=== PATIENT | male | born 1965 | race Caucasian/White ===

== ENCOUNTER 2024-09-30 12:23 | Outpatient (REF) | payer MEDICARE, SELFPAY ==
[2024-09-30 13:16] LABS: Blood Urea Nitrogen 37.0 mg/dL (7.0-18.0); Estimated GFR (African America 31 (>=60 mL/min/1.73m^2); Estimated GFR (Non-African Ame 25 (>=60 mL/min/1.73m^2)
== END 2024-09-30 12:24 | disposition home or self-care (01) ==
LOC: LAB 12:23
PROVIDERS: PCP Family Medicine; Visit Provider Family Medicine
DX: A49.02 Methicillin resistant Staphylococcus aureus infection, unspecified site (principal)
CPT/HCPCS: 36415; 80202; 82565; 84520

== ENCOUNTER 2024-10-06 12:10 | Outpatient (REF) | payer MEDICARE, SELFPAY ==
--- OUTSIDE RECORDS SUMMARY | 2023-08-01 09:30 | XMS_ITS ---
Author Organization The [facility] [place] Address [address] [place] [address] Care Team Providers Care Press Offbearer Name Role Phone None, Unknown or Primary Care Provider Unavailab Ed Early Unavailable [phone] REASON FOR VISIT Scheduled w/ [facility] - they were not sure why pt needed to be seen _ _ humana Encounters Encounter Location Date Provider Diagnosis Urology [facility] [address] [place] [address] 08/01/2023 Ed Rashid Plan Of Treatment No Information Progress Notes * Tomas SHERMANDOB:1965 (58 yo M)Acc No.[id number]:08/01/2023 UNLOCKED PROGRESS NOTE Progress Note Patient: Tomas FLYNN Provider: Yfn Rashid MD :1965 A ge:57 Y S ex:Male Date:08/01/2023 Address:[facility] [address], [place], [id number] Pcp:Unknown or None Subjective: * Chief Complaints: * 1 . Scheduled w/ [facility] - they were not sure why pt needed to be seen _ _ humana. * Medical History: Objective: * Vitals: Assessment: Plan: * Treatment: * * Electronic signature of Gil Rashid MD, [id number] on 10/06/2024 at 12:16 PM EDT Sign off status: Pending Visit Status: C ANCSMS (CANCSMS) * Provider: Yfn Rashid MD Date: 0 08/01/2023 Generated for Cathi thomas/Marcela/Sy on: 0 10/06/2024 12:16 PM EDT
--- OUTSIDE RECORDS SUMMARY | 2024-09-04 10:30 | XMS_ITS ---
Author Organization [facility] Address [address] [place] [address] Care Team Providers Care Ski Binding Fitter And Repairer Name Role Phone Sp Arguelles Primary Care Provider Sada Yadav [phone] REASON FOR VISIT BACTEREMIA, OSTEOMYELITIS Encounters Encounter Location Date Provider Diagnosis [facility] [address] [facility] [place] [address] 09/04/2024 Sada Yadav Plan Of Treatment Next Appt Details Provider Name:Gris chávez, 10/13/2024 02:30:00 PM, [address] [place], [address], Progress Notes * SEBASTIAN PIEDRA EDOB: 6 (58 yo M)Acc No.[id number]:09/04/2024 Progress Note Patient: SEBASTIAN FLYNN Provider: WYATT Floernce :1965 A ge:58 Y S ex:Male Date:09/04/2024 Address:[facility] [address], [place], [place] Pcp:Sp Arguelles Subjective: * Chief Complaints: * 1 . BACTEREMIA, OSTEOMYELITIS. * Medical History: Objective: * Vitals: Assessment: Plan: * Treatment: Care Plan: * Problems: * Images: * Electronic signature of Ciera Yadav CNP on 10/06/2024 at 12:15 PM EDT Sign off status: Pending * Provider: WYATT [place] Date: 0 09/04/2024 Generated for Cathi thomas/Marcela/Sy on: 0 10/06/2024 12:15 PM EDT
--- OUTSIDE RECORDS SUMMARY | 2024-09-24 09:30 | XMS_ITS ---
Author Organization [facility] Address [address] [place] [address] Care Team Providers Care Disc Sander Name Role Phone Sp Arguelles Primary Care Provider [phone] REASON FOR VISIT Hosp f/u, BMV forms Encounters Encounter Location Date Provider Diagnosis [facility] [address] [facility] [place] [address] 09/24/2024 Sp Arguellse Plan Of Treatment Next Appt Details Provider Name:Gris chávez, 10/13/2024 02:30:00 PM, [address] [place], [address], Progress Notes * PIEDRA SEBASTIAN EDOB: 6 (58 yo M)Acc No.[id number]:09/24/2024 Progress Note Patient: SEBASTIAN FLYNN Provider: Janki Arguelles :1965 A ge:58 Y S ex:Male Date:09/24/2024 [facility] [address], [place], [place] Subjective: * Chief Complaints: * 1 . Hosp f/u, BMV forms. * Medical History: Objective: * Vitals: Assessment: Plan: * Treatment: Care Plan: * Problems: * Images: * Electronic signature of Irma Arguelles DO on 10/06/2024 at 12:16 PM EDT Sign off status: Pending * Provider: Janki Arguelles Date: 0 09/24/2024 Generated for Cathi thomas/Marcela/Manuelitting on: 0 10/06/2024 12:16 PM EDT
--- OUTSIDE RECORDS SUMMARY | 2024-10-06 12:16 | XMS_ITS | Patient Health Record ---
Author Organization [facility] Address [address] [place] [address] [address] [place] [address] [place] [address] Care Team Providers Care Measurement Coordinator Name Role Phone Family, Health Services Primary Care Provider Un available Leilamookie Shaji Unavailable [phone] Reason For Referral No Information Medications Medication SIG (Take, Route, Frequency, Duration) Notes Start Date End Date Status metFORMIN HCl 1000 MG 2 Orally Once a day Active Losartan Potassium 50 MG 1 tablet Orally Once a day Active LORazepam 1 MG 1 tablet at bedtime as needed Orally prn Active Cyclobenzaprine HCl 10 MG 1 tablet as ne eded Orally prn Active Ritalin 10 MG 1 tablet Orally Twic e a day Active Citalopram Hydrobromide 40 MG 0.5 tablet Orally Once a day Active Bydureon 2 MG Subcutaneous Act snow Insulin Glargine 100 UNIT/ML Subcutaneous Active CeleXA 40 MG 0.5 tablet Orally On ce a day Active Gabapentin 400 MG 1 capsule Orally Thr ee times a day Active Metoprolol Succinate ER 50 MG 1 tablet Orally Once a day Active Pravastatin Sodium 20 MG 1 tablet Orally Once a day Active Omeprazole 40 MG 1 capsule Orally Onc e a day Active Albuterol Sulfate Ac tive Aspirin 325 MG 1 tablet Orally Once a day Active risperiDONE 1 MG 1 tablet Orally Once a day Active Social History Tobacco Use: Social History Observation Description Date Details (start date - stop date) Current Smoker NA - NA tobacco use Question Answer Notes Patient is a: current smoker Problems Problem Type SNOMED Code ICD Code Onset Dates Problem Status W/U Status Risk Notes Problem Polyneuropathy due to type 2 diabetes mellitus (652613039) Type 2 diabetes mellitus with diabetic polyneuropathy (E11.42) Active confirmed Problem Type 2 diabetes mellitus with peripheral angiopathy (803914752) Type 2 diabetes mellitus with diabetic peripheral angiopathy without gangrene (E11.51) Active confirmed Problem Tinea unguium (666219052) Tinea unguium (B35.1) Active confirmed Plan Of Treatment No Information Insurance Providers Payer Name Payer Address Payer Phone Subscriber Number Group Number Insured Name Patient Relationship to Insured Coverage Start Date Coverage End Date [facility] [address] [place] [phone] [id number] Tomas Sherman Self - patient is the insured Medical (General) History Medical History History ICD Code diabetes abcesses Surgical History Surgery Date(Month/Year) abcess removal amp of 2nd toe Hospitalization History Reason Date(Month/Year) abscess and amp of 2nd toeleft 2017
--- OUTSIDE RECORDS SUMMARY | 2024-10-06 12:16 | XMS_ITS | Patient Health Record ---
Author Organization [facility] [place] Address [address] [place] [address] Care Team Providers Care Stone And Concrete Washer Name Role Phone None, Unknown or Primary Care Provider Unavailab le Reason For Referral No Information Plan Of Treatment No Information
--- OUTSIDE RECORDS SUMMARY | 2024-10-06 12:16 | XMS_ITS | Clinical Summary ---
Author Organization [facility] Address [address] [place] [address] Phone Care Team Providers Care Ager Tender Name Role Phone Unavailable Primary Care Provider Unavailabl e Social History Tobacco Use Types Packs/Day Years Used Date Smoking Tobacco: Never Assessed Sex and Gender Information Value Date Recorded Sex Assigned at Not on file Legal Sex Male 8:04 PM EST Gender Identity Not on file Sexual Orientation Not on file Plan of Treatment Not on file
--- OUTSIDE RECORDS SUMMARY | 2024-10-06 12:16 | XMS_ITS | Patient Health Record ---
Author Organization [facility] es Address [address] [place] [address] Care Team Providers Care Educator Senior Clinical Name Role Phone Sp Arguelles Primary Care Provider Marco Antonio Edmondson Unavailable JevonNegrita Unavailable [phone] Nils Santos Unavailable [phone] Sada Yadav Unavailable [phone] Ewelina Robledo Unavailable [phone] Allergies No Known Allergies Results Component Value Reference Range Notes Hemoglobin A1c Reviewed date:05/13/2024 01:38:17 PM Interpretation:7.1 Performing Lab: Notes/Report: 7.1 Hemoglobin A1c 7.1 5 - 7.9 % Hemoglobin A1c Reviewed date:02/11/2024 11:50:30 AM Interpretation:7.5 Performing Lab: Notes/Report: 7.5 Hemoglobin A1c 7.5 5 - 7.9 % Reason For Referral Reason PT SEEN would like to see new fiscal agent Diagnosis 1 History of diabetic ulcer of foot (Z86.31) Diagnosis 2 Pain in right foot ( M79.671) Diagnosis 3 Pain in left foot (M 79.672) Referral Organization [facility] Referring Provider First Name Sp Referring Provider Last Name Blane Referring Provider Speciality [facility] ctice Referred Provider [facility] Foot a nd Ankle Specialist, . Referred Provider Specialty Podiatry Referral Priority Routine Reason counseling services 02/13/2024 Scheduled Diagnosis 1 Anxiety, generalized (F41.1) Referral Organization [facility] Referring Provider First Name Sp Referring Provider Last Name Blane Referring Provider Speciality [facility] ctice Referred Provider Specialty [facility] Referral Priority Routine Medications Medication SIG (Take, Route, Frequency, Duration) Notes Start Date End Date Status Loperamide HCl 2 MG 1 capsule as needed Orally twice a day; Duration: 30 days 03/09/2025 Active Trulicity 1.5 MG/0.5ML as directed Subcutaneous; Duration: 15 days Not-Taking Pravastatin Sodium 20 MG TAKE 1 TABLET BY MOUTH EVERY DAY FOR 30 DAYS; Duration: 90 Not-Taking Symbicort 80-4.5 MCG/ACT 2 puffs. Rinse mouth after Inhalation Twice a day Increase to BID dosing Not-Taking Glimepiride 4 MG 2 tablets with breakfast or the first main meal of the day Orally Once a day; Duration: 90 days Active Alcohol Wipes 70 % as directed prior to sugar checks and insulin administration Externally 8 times daily; Duration: 30 days 08/08/2023 Active Pen Powell 5/16 31G X 8 MM with insulin subcutaneous 4 times daily; Duration: 30 days Dx E11.40 07/17/2023 Active Lantus SoloStar 100 UNIT/ML 30 units Subcutaneous once per day at night 07/12/2023 Active HumaLOG KwikPen 100 UNIT/ML per sliding scale Subcutaneous three times a day with meals As needed up to 20 units daily. 07/12/2023 Active amLODIPine Besylate 10 MG 1 tablet Orally Once a day; Duration: 90 days Active Albuterol Sulfate (2.5 MG/3ML) 0.083% 3 mL as needed Inhalation every 6 hrs As needed 07/12/2023 Active Sodium Bicarbonate 650 MG 2 tablets Orally three times a day (tid); Duration: 30 days Active FLUoxetine HCl 40 MG TAKE 1 CAPSULE BY MOUTH EVERY DAY FOR 90 DAYS; Duration: 90 Active hydrOXYzine Pamoate 25 MG 1 capsule orally twice a day; Duration: 90 days Active Gabapentin 300 MG 1 capsule Orally twice a day; Duration: 90 days Active Ventolin HFA 108 (90 Base) MCG/ACT 1 puff as needed Inhalation every 4 hrs; Duration: 90 days Active Losartan Potassium 50 MG 1 tablet Orally Once a day; Duration: 90 days Active Furosemide 40 MG TAKE 1 TABLET BY MOUTH EVERY DAY FOR 30 DAYS Orally Once a day; Duration: 30 day(s) 10/14/2024 Active Spiriva Respimat 2.5 MCG/ACT INHALE 2 PUFFS INTO THE LUNGS EVERY DAY FOR 30 DAYS Active Calcium 600 MG 1 tablet with meals Orally Twice a day 1200mg bid Active Albuterol Sulfate 108 (90 Base) MCG/ACT 1 puff as needed Inhalation every 4 hrs As needed 07/12/2023 Active Albuterol Sulfate HFA 108 (90 Base) MCG/ACT 1 puff as needed Inhalation every 4 hrs; Duration: 30 days Not-Taking QUEtiapine Fumarate 50 MG TAKE 1 TABLET BY MOUTH AT BEDTIME; Duration: 90 Not-Taking QUEtiapine Fumarate 25 MG TAKE 1 TABLET BY MOUTH THREE TIMES A DAY Not-Taking Omeprazole 40 MG TAKE 1 CAPSULE BY MOUTH 30 MINUTES BEFORE MORNING MEAL EVERY DAY; Duration: 90 Active FLUoxetine HCl 20 MG 1 capsule x 7 days then start 40mg dose Orally Once a day; Duration: 7 days 10/08/2023 Not-Taking Carvedilol 12.5 MG 1 tablet with food Orally Twice a day; Duration: 30 days Active Famotidine 20 MG 1 tablet at bedtime as needed Orally Once a day; Duration: 90 days Active Social History Tobacco Use: Social History Observation Description Date Details (start date - stop date) Current Smoker NA - NA Tobacco Screen: Question Answer Notes Are you a: current smoker How often do you smoke cigarettes? every day How many cigarettes a day do you smoke? 21-30 How soon after you wake up do you smoke your fir st cigarette? within 5 min Are you interested in quitting? Not ready to armen t Alcohol Screening: Question Answer Notes Did you have a drink containing alcohol in the p ast year? No Points 0 Interpretation Negative Depression Screening (PHQ-9): Question Answer Notes Little interest or pleasure in doing things Near ly every day Feeling down, depressed, or hopeless Nearly ever y day Trouble falling or staying asleep, or sleeping t oo much Not at all Feeling tired or having little energy Not at all Poor appetite or overeating Not at all Feeling bad about yourself-o r that you are a failure or have let yourself or your family down Several days Trouble concentrating on thi ngs, such as reading the newspaper or watching television More than half the days Moving or speaking so slowly that other people could have noticed. Or the opposite being so fidgety or restless that you have been moving around a lot more than usual Nearly every day Thoughts that you would be b jaren off , or of hurting yourself in some way Not at all Total Score 12 Intepretation Moderate Depression Tobacco Control (Standard) Question Answer Notes Tobacco use: Current smoker How often do you smoke cigarettes? Every day How many cigarettes a day do you smoke? 21-30 Problems Problem Type SNOMED Code ICD Code Onset Dates Problem Status W/U Status Risk Notes Problem Foot ulcer due to type 2 diabetes mellitus (7640167882655) Type 2 diabetes mellitus with foot ulcer (E11.621) Active confirmed Problem Dermopathy due to type 2 diabetes mellitus (disorder) (5855989748034) Type 2 diabetes mellitus with other skin complications (E11.628) Active confirmed Problem Hyperkalemia (51505969) Hyperkalemia (E87.5) Active confirmed Problem Tobacco user (216533717) Nicotine dependence, unspecified, uncomplicated (F17.200) Active confirmed Problem Severe mixed bipolar I disorder without psychotic features (30061449) Bipolar disorder, current episode mixed, severe, without psychotic features (F31.63) Active confirmed Problem Tobacco use (471975873) Tobacco use (Z72.0) Active confirmed Problem Anxiety (82780865) Anxiety (F41.9) Active confi rmed Problem Gastroesophageal reflux disease (disorder) (309458926) Chronic GERD (K21.9) Active confirmed Problem COPD - Chronic obstructive pulmonary disease (94489282) Chronic obstructive pulmonary disease, unspecified COPD type (J44.9) Active confirmed Problem Attention deficit hyperactivity disorder (520266942) Attention deficit hyperactivity disorder (ADHD), unspecified ADHD type (F90.9) Active confirmed Problem Primary hypertension (68439817) Primary hypertension (I10) Active confirmed Problem Acute exacerbation of chronic obstructive airways disease (776135645) COPD exacerbation (J44.1) Active confirmed Problem Bipolar disorder (82213936) Bipolar affective disorder, remission status unspecified (F31.9) Active confirmed Problem Chronic kidney disease stage 4 (252877296) Stage 4 chronic kidney disease (N18.4) Active confirmed Problem Diabetic peripheral neuropathy associated with type 2 diabetes mellitus (0331770317550) Type 2 diabetes mellitus with diabetic neuropathy, without long-term current use of insulin (E11.40) Active confirmed Problem Non-pressure chronic ulcer of other part of unspecified foot with muscle involvement without evidence of necrosis (L97.505) Active confirmed Problem History of diabetic foot ulcer (situation) (62260249217604129) History of diabetic ulcer of foot (Z86.31) Active confirmed Problem Generalized anxiety disorder (50907137) Anxiety, generalized (F41.1) Active confirmed Problem Chronic kidney disease stage 3 (disorder) (823631991) Stage 3 chronic kidney disease, unspecified whether stage 3a or 3b CKD (N18.30) Active confirmed Problem Acute postoperative pain (065122604088475) Acute postoperative pain (G89.18) Active confirmed Problem Postoperative wound infection (31489947) Postoperative wound infection (T81.49XA) Active confirmed Vital Signs Heart Rate 86 /min 05/13/2024 Temperature 97.2 degrees Fahrenheit 05/13/2024 Respiratory Rate 18 /min 05/13/2024 Oximetry 94 % 05/13/2024 Blood pressure diastolic 69 mm Hg 05/13/2024 Height 68 in 05/13/2024 Blood pressure systolic 162 mm Hg 05/13/2024 Weight 257.2 lbs 05/13/2024 BMI 39.1 kg/m2 05/13/2024 Encounters Encounter Location Date Provider Diagnosis [address] [address] 12/19/2023 Sp Arguelles Local infection of t he skin and subcutaneous tissue, unspecified L08.9 ; History of diabetic ulcer of foot Z86.31 ; Pain in right foot M79.671 and Pain in left foot M79.672 [facility] [address] [place] [address] 10/08/2023 Negrita Escoto Bipolar disorder, current episode mixed, severe, without psychotic features F31.63 [facility] [address] [place] [address] 02/11/2024 Sp Arguelles Type 2 diabetes mellitus with diabetic neuropathy, without long-term current use of insulin E11.40 ; Anxiety, generalized F41.1 and Chronic obstructive pulmonary disease, unspecified COPD type J44.9 [facility] [address] [place] [address] 10/15/2023 Sp Arguelles Local infection of t he skin and subcutaneous tissue, unspecified L08.9 [facility] [address] [place] [address] 05/13/2024 Sp Arguelles Type 2 diabetes mellitus with diabetic neuropathy, without long-term current use of insulin E11.40 ; Primary hypertension I10 ; COPD exacerbation J44.1 ; Candidal dermatitis B37.2 and Reducible umbilical hernia K42.9 [facility] [address] [place] [address] 09/08/2024 Sp Arguelles Acute diarrhea R19.7 [facility] [address] [place] [address] 09/10/2024 Sp Arguelles Diarrhea, unspecifie d type R19.7 [facility] [address] [place] [address] 05/22/2024 Sp Arguelles [facility] [address] [place] [address] 06/09/2024 Sp Arguelles Primary hypertension I10 [facility] [address] [place] [address] 07/16/2024 Sp Arguelles Primary hypertension I10 [facility] [address] [place] [address] 08/14/2024 Sp Arguelles Lethargy R53.83 and Abnormal breath sounds R09.89 [facility] [place] [address] 08/20/2024 Sp Arguelles [facility] [address] [place] [address] 09/01/2024 Sp Arguelles [facility] [address] [place] [address] 03/13/2024 Sp Arguelles [facility] [place] [address] 04/20/2024 Sp Arguelles [facility] [address] [place] [address] 04/27/2024 Sp Arguelles [facility] [address] [place] [address] 05/01/2024 Sp Arguelles Primary hypertension I10 [facility] [address] [place] [address] 05/04/2024 Sp Arguelles [facility] [address] [place] [address] 05/11/2024 Sp Arguelles [facility] [address] [place] [address] 12/05/2023 Sp Arguelles Local infection of t he skin and subcutaneous tissue, unspecified L08.9 [facility] [address] [place] [address] 12/06/2023 Sp Arguelles [facility] [address] [place] [address] 01/16/2024 Sp Arguelles [facility] [address] [place] [address] 02/20/2024 Sp Arguelles Chronic obstructive pulmonary disease, unspecified COPD type J44.9 and Bipolar disorder, current episode mixed, severe, without psychotic features F31.63 [facility] [address] [place] [address] 03/04/2024 Sp Arguelles Acute cough R05.1 [facility] [place] [address] 03/12/2024 Sp Arguelles [place] [address] [place] [address] 2023 Sp Arguelles Local infection of t he skin and subcutaneous tissue, unspecified L08.9 [facility] [address] [place] [address] 10/31/2023 Sp Arguelles [place] [address] [place] [address] 11/11/2023 Sp Arguelles Local infection of t he skin and subcutaneous tissue, unspecified L08.9 [facility] [address] [place] [address] 11/12/2023 pS Arguelles [facility] [address] [place] [address] 11/22/2023 Sp Arguelles Local infection of t he skin and subcutaneous tissue, unspecified L08.9 [facility] [address] [place] [address] 12/03/2023 Sp Arguelles [place] [address] [place] [address] 10/17/2023 Sp Arguelles Assessments Encounter Date Diagnosis (ICD Code) Assessment Notes Treatment Notes Treatment Clinical Notes Section Notes 10/08/2023 Bipolar disorder, current episode mixed, severe, without psychotic features (ICD-10 - F31.63) pt to restart fluoxetine cint current treamtent . . Informed consent obtained: YES, we discussed the diagnosis/diagnoses , the treatment options, treatment(s) recommended vs. no treatment. We discussed risks and benefits of treatment options, treatment recommendations vs. no treatment. . . Discussed lifestyle/diet changes to help improve BMI. Recommend increasing activity, reducing portion sizes, limiting carbohydrates, increasing protein as appropriate. Discussed referral to brim raiser if problem persists. . . Continue current treatment Tolerating meds well, compliant Call for problems . GOALS: . Maintain medication regimen _Improve mood stability _Improve anxiety control _Improve social and interpersonal functioning _Improve attention and or hyperactivity . . Second generation antipsychotic medications can cause headache, drowsiness, agitation, dizziness, nausea, or extrapyramidal symptoms such as tremors, muscle spasms, slowness of movement or jerking of muscles. . . FDA approved medication for this age group include Selective Serotonin Reuptake Inhibitors (SSRI) and Selective Norepinephrine Reuptake Inhibitors (SNRI). Selective serotonin reuptake inhibitors? can cause nausea, headache, upset stomach, diarrhea, constipation, anxiety, irritability, and sexual dysfunction. Please monitor for worsening of symptoms, especially suicidal ideations or morbid thoughts, and call office and or go to the emergency department immediately . 10/15/2023 Local infection of the skin and subcutaneous tissue, unspecified (ICD-10 - L08.9) Patient with persistent foot pain. He is still planning for amputation with podiatry. No real changes over interval. Will continue with current management for his pain. 2023 Local infection of the skin and subcutaneous tissue, unspecified (ICD-10 - L08.9) 11/11/2023 Local infection of the skin and subcutaneous tissue, unspecified (ICD-10 - L08.9) 11/22/2023 Local infection of the skin and subcutaneous tissue, unspecified (ICD-10 - L08.9) 12/05/2023 Local infection of the skin and subcutaneous tissue, unspecified (ICD-10 - L08.9) 12/19/2023 Local infection of the skin and subcutaneous tissue, unspecified (ICD-10 - L08.9) Patient with but she does previously plan for amputation, patient admits he has been noncompliant with that provider. Would like to see a different fiscal agent at this time. We did discuss I would refer him today. Would only continue to provide pain medication for short time if he is noncompliant with this would refer to pain management patient expressed understanding. 12/19/2023 History of diabetic ulcer of foot (ICD-10 - Z86.31) 02/20/2024 Chronic obstructive pulmonary disease, unspecified COPD type (ICD-10 - J44.9) 03/04/2024 Acute cough (ICD-10 - R05.1) 05/01/2024 Primary hypertension (ICD-10 - I10) 05/13/2024 Primary hypertension (ICD-10 - I10) Patient blood pressure elevated but has been off his losartan. We discussed restarting medication and reevaluation at follow-up. Signs and symptoms that warrant return to clinic were discussed. Signs and symptoms that would warrant going to the nearest ER or calling 911 were also discussed. 02/11/2024 Type 2 diabetes mellitus with diabetic neuropathy, without long-term current use of insulin (ICD-10 - E11.40) - A1c reviewed with patient at 7.5% today - Continue current medication regimen - Continue with diabetic diet - F/u in 3 months 02/11/2024 Anxiety, generalized (ICD-10 - F41.1) Patient with recent increased anxiety as a result of grief. We discussed adding an as needed Vistaril at this time. Patient is also open to seeing a counselor and referral will start a visit today. No current threat to self or others. 05/13/2024 Type 2 diabetes mellitus with diabetic neuropathy, without long-term current use of insulin (ICD-10 - E11.40) Patient with A1c at 7.1% today. He is in need of some weight loss prior to surgery for his umbilical hernia. Current insulin is likely inhibiting his weight loss. We did discuss starting Ozempic and titration schedule for this today. 06/09/2024 Primary hypertension (ICD-10 - I10) 07/16/2024 Primary hypertension (ICD-10 - I10) 08/14/2024 Lethargy (ICD-10 - R53.83) 08/14/2024 Abnormal breath sounds (ICD-10 - R09.89) 09/08/2024 Acute diarrhea (ICD-10 - R19.7) 09/10/2024 Diarrhea, unspecified type (ICD-10 - R19.7) 02/20/2024 Bipolar disorder, current episode mixed, severe, without psychotic features (ICD-10 - F31.63) 05/13/2024 COPD exacerbation (ICD-10 - J44.1) Patient with COPD exacerbation but has been off medication. Patient states he still has not previously completely controlled with the Spiriva. We did discuss start of Trelegy today. Signs and symptoms that warrant return to clinic were discussed. Signs and symptoms that would warrant going to the nearest ER or calling 911 were also discussed. 02/11/2024 Chronic obstructive pulmonary disease, unspecified COPD type (ICD-10 - J44.9) 12/19/2023 Pain in right foot (ICD-10 - M79.671) 12/19/2023 Pain in left foot (ICD-10 - M79.672) 05/13/2024 Candidal dermatitis (ICD-10 - B37.2) Patient with likely candidal dermatitis around his umbilical hernia. We did discuss use of nystatin cream in this area. Continue cleaning per his home and else nurse advisement. 05/13/2024 Reducible umbilical hernia (ICD-10 - K42.9) Patient with umbilical hernia on exam that is reducible but immediately returns. No signs of entrapment. We did discuss georgina short-term course of pain medication but would not continue to prescribe this for him. Plan Of Treatment Pending Test Test Name Order Date XR chest 2V* 03/04/2024 XR chest 2V* 08/14/2024 Clostridium Difficile 09/08/2024 Next Appt Details Provider Name:Gris chávez, 10/13/2024 02:30:00 PM, [address] [place], [address], Insurance Providers Payer Name Payer Address Payer Phone Subscriber Number Group Number Insured Name Patient Relationship to Insured Coverage Start Date Coverage End Date [employer] MEDICARE PLAN [address] [address] [place]JAN[place]CRISTIN ZepedaNATHANIEL [phone] [id number] SEBASTIAN PIEDRA Self - patient is the insured 3 MEDICAID SEC TO MCARE ADV [address] [place] [address] [id number] SEBASTIAN PIEDRA Self - patient is the insured 3 [employer] -termed [address] [place] [address] [id number] SEBASTIAN PIEDRA Self - patient is the insured 2 3 [facility] after [employer]- termed 22 [address] [place] [address] [phone] [id number] SEBASTIAN PIEDRA Self - patient is the insured 2 3 z [employer]- termed 22 [address] [place] [address] [id number] SEBASTIAN PIEDRA Self - patient is the insured [address] [facility] MEDICAID CFC after [employer]- termed 22 [address] [place] [address] [id number] SEBASTIAN PIEDRA Self - patient is the insured 2 3 [facility] Medicaid [address] [place] [phone] [id number] SEBASTIAN PIEDRA Self - patient is the insured 3 3 [facility] CareSource [address] [place] [address] [id number] SEBASTIAN PIEDRA Self - patient is the insured 3 3 [facility] Medicaid [address] [place] [address] [id number] SEBASTIAN PIEDRA Self - patient is the insured 3 3 [facility] CareSource [address] [place] [address] [id number] SEBASTIAN PIEDRA Self - patient is the insured 3 3 MEDICARE CGS 1 [facility] [place]DONE[place] [phone] [id number] SEBASTIAN PIEDRA Self - patient is the insured 3 [facility] MEDICAID SEC TO [address] [place] [address] [id number] SEBASTIAN PIEDRA Self - patient is the insured 3 Medical (General) History Medical History History ICD Code Hypertension Type 2 diabetes mellitus Anxiety ADHD Congestive Heart Failure COPD Hard of Hearing bipolar obesity, morbid Esophageal reflux Stage 4 Kidney disease Depression Bilateral toe amputation (diabetic ketoa cidosis) neuropathy Surgical History Surgery Date(Month/Year) Small toe amputation on left foot second toe on left foot amputation 2016 I and D Groin area x4 colonoscopy 01/2022 Lt. Arm Fistula 10/04/2022 bilateral toe amputation ( diabetic keto acidosis) 05/2023 Hospitalization History Reason Date(Month/Year) UTI 07/2023 Diabetic ketoacidosis ( 10 days) 07/2023 Low Sodium in blood, kidney problems, to e amputation 12/2020-03/2021
[2024-10-06 12:30] LABS: Anion Gap 13.9; Blood Urea Nitrogen 50.0 mg/dL (7.0-18.0); Calcium 8.5 mg/dL (8.5-10.1); Carbon Dioxide 26.6 mmol/L (21.0-32.0); Chloride 101 mmol/L (98-107); Estimated GFR (African America 25 (>=60 mL/min/1.73m^2); Estimated GFR (Non-African Ame 21 (>=60 mL/min/1.73m^2); Glucose 158 mg/dL (74-106); Potassium 5.5 mmol/L (3.5-5.1); Sodium 136 mmol/L (136-145)
[2024-10-06 13:11] LABS: Hematocrit 26.3 % (42.0-54.0); Hemoglobin 8.4 g/dL (14.0-18.0); Immature Granulocytes Abs Auto 0.04 10^3/uL (0.00-0.03); Immature Granulocytes Pct Auto 0.6 % (0.0-0.5); Lymphocytes Absolute Auto 1.1 10^3/uL (1.2-3.8); Mean Corpuscular HGB Conc 31.9 g/dL (29.9-35.2); Mean Corpuscular Hemoglobin 28.0 pg (25.9-34.0); Mean Corpuscular Volume 87.7 fL (80.0-94.0); Platelet Count 118 10^3/uL (150-450); Red Blood Count 3.00 10^6/uL (4.70-6.10); White Blood Count 6.5 10^3/uL (4.0-11.0)
== END 2024-10-06 12:11 | disposition home or self-care (01) ==
LOC: LAB 12:10
PROVIDERS: PCP Family Medicine; Visit Provider Family Medicine
DX: E11.42 Type 2 diabetes mellitus with diabetic polyneuropathy (principal); Z49.02 Encounter for fitting and adjustment of peritoneal dialysis catheter
CPT/HCPCS: 36415; 80048; 80202; 85025

== ENCOUNTER 2024-10-14 10:38 | Outpatient (REF) | payer MEDICARE, SELFPAY ==
--- OUTSIDE RECORDS SUMMARY | 2024-10-14 10:42 | XMS_ITS | Clinical Summary ---
Author Organization [facility] Address [id number] [address] [place] [address] Care Team Providers Care Roping Machine Tender Name Role Phone No Pcp, No Pcp Primary Care Provider Unavailabl e Social History Tobacco Use Types Packs/Day Years Used Date Smoking Tobacco: Never Assessed Childcare Answer Date Recorded Childcare Unknown 09/10/2018 Employment Answer Date Recorded Employment Unknown 09/10/2018 Sex and Gender Information Value Date Recorded Sex Assigned at Not on file Legal Sex Male 11:28 AM EDT Gender Identity Not on file Sexual Orientation Not on file Plan of Treatment Not on file Medical Devices Not on file Insurance [employer] Care Teams Roping Machine Tender Relationship Specialty Start Date End Date No [place], [place] [id number] PCP - General Family Medicine 03/21/21
--- OUTSIDE RECORDS SUMMARY | 2024-10-14 10:42 | XMS_ITS | Clinical Summary ---
Author Organization [facility] Address [address] [place] [address] Phone Care Team Providers Care Clothes Marker Name Role Phone Unavailable Primary Care Provider [...]
[2024-10-14 11:19] LABS: Blood Urea Nitrogen 53.0 mg/dL (7.0-18.0); Estimated GFR (African America 23 (>=60 mL/min/1.73m^2); Estimated GFR (Non-African Ame 19 (>=60 mL/min/1.73m^2)
== END 2024-10-14 10:39 | disposition home or self-care (01) ==
LOC: LAB 10:38
PROVIDERS: PCP Family Medicine; Visit Provider Family Medicine
DX: Z79.899 Other long term (current) drug therapy (principal)
CPT/HCPCS: 36415; 80202; 82565; 84520

== ENCOUNTER 2024-10-22 11:27 | Outpatient (REF) | payer MEDICARE, SELFPAY | END 2024-10-22 11:28 | disposition home or self-care (01) | LOC: LAB 11:27 | PROVIDERS: PCP Family Medicine; Visit Provider Family Medicine | DX: L08.9 Local infection of the skin and subcutaneous tissue, unspecified (principal) | CPT/HCPCS: 36415; 80202 ==

== ENCOUNTER 2024-11-09 11:47 | Outpatient (OUT) | payer MEDICARE, SELFPAY ==
--- NOTE | 2024-11-09 11:50 | ECG_ITS ---
[facility] Test Date: 2024-11-09 Pat Name: SEBASTIAN PIEDRA Department: Room: - Gender: Male Judicial Reporter: : 1965 Requested By: ELIZABETH MERIDA Order Number: [id number] Yamile MD: RIMA TERESA M.D. Measurements Intervals [place] Rate: 51 P: 68 OR: 171 QRS: 73 QRSD: 89 T: 8 QT: 448 QTc: 414 Interpretive Statements SINUS BRADYCARDIA LOW QRS VOLTAGE IN PRECORDIAL LEADS [QRS DEFLECTION < 1.0 mV IN CHEST LEADS] POSSIBLE ANTERIOR MYOCARDIAL INFARCTION [30 ms Q WAVE IN V3/V4, OR R < 0.2 mV IN V4], PROBABLY OLD Abnormal ECG Compared to ECG 04/20/2021 10:28:43 Low QRS voltage now present Myocardial infarct finding now present Sinus rhythm no longer present Electronically Signed On 11-10-2024 13:53:10 EDT by RIMA TERESA M.D.
== END 2024-11-09 11:48 | disposition home or self-care (01) ==
PROVIDERS: PCP Family Medicine
DX: Z01.810 Encounter for preprocedural cardiovascular examination (principal); Z01.812 Encounter for preprocedural laboratory examination; R94.31 Abnormal electrocardiogram [ECG] [EKG]
CPT/HCPCS: 80048; 93005

== ENCOUNTER 2024-11-09 13:21 | Outpatient (OUT) | payer MEDICARE, SELFPAY ==
--- OUTSIDE RECORDS SUMMARY | 2024-11-09 13:24 | XMS_ITS | Clinical Summary ---
Author Organization [facility] Address [address] [place] [address] Phone Care Team Providers Care Business Services Sales Representative Name Role Phone Unavailable Primary Care Provider [...]
--- OUTSIDE RECORDS SUMMARY | 2024-11-09 13:24 | XMS_ITS | Clinical Summary ---
Author Organization [facility] Address [id number] [address] [place] [address] Care Team Providers Care Design Analyst Name Role Phone No Pcp, No Pcp [...] on file Insurance [employer] Care Teams Design Analyst Relationship Specialty Start Date End Date No Pcp, [place] [id number] PCP - General Family Medicine 03/21/21
[2024-11-09 13:39] LABS: Hematocrit 31.5 % (42.0-54.0); Hemoglobin 10.2 g/dL (14.0-18.0); Immature Granulocytes Abs Auto 0.03 10^3/uL (0.00-0.03); Immature Granulocytes Pct Auto 0.4 % (0.0-0.5); Lymphocytes Absolute Auto 1.1 10^3/uL (1.2-3.8); Mean Corpuscular HGB Conc 32.4 g/dL (29.9-35.2); Mean Corpuscular Hemoglobin 27.1 pg (25.9-34.0); Mean Corpuscular Volume 83.8 fL (80.0-94.0); Platelet Count 97 10^3/uL (150-450); Red Blood Count 3.76 10^6/uL (4.70-6.10); White Blood Count 7.0 10^3/uL (4.0-11.0)
[2024-11-09 13:51] LABS: Anion Gap 13.2; Blood Urea Nitrogen 51.0 mg/dL (7.0-18.0); Calcium 8.8 mg/dL (8.5-10.1); Carbon Dioxide 23.5 mmol/L (21.0-32.0); Chloride 100 mmol/L (98-107); Estimated GFR (African America 23 (>=60 mL/min/1.73m^2); Estimated GFR (Non-African Ame 19 (>=60 mL/min/1.73m^2); Glucose 141 mg/dL (74-106); Potassium 5.7 mmol/L (3.5-5.1); Sodium 131 mmol/L (136-145)
== END 2024-11-09 13:22 | disposition home or self-care (01) ==
LOC: LAB 13:22
PROVIDERS: PCP Family Medicine; Visit Provider Podiatrist Foot & Ankle Surgery
DX: Z01.812 Encounter for preprocedural laboratory examination (principal); Z01.818 Encounter for other preprocedural examination; N17.9 Acute kidney failure, unspecified
CPT/HCPCS: 36415; 80048; 81003; 85025

== ENCOUNTER 2024-11-09 17:28 | Outpatient (REF) | payer MEDICARE, SELFPAY ==
[2024-11-09 18:52] LABS: Glucose Urine UA NEGATIVE (NEGATIVE)
== END 2024-11-09 17:29 | disposition home or self-care (01) ==
LOC: LAB 17:28
PROVIDERS: PCP Family Medicine; Visit Provider Family Medicine
DX: N17.9 Acute kidney failure, unspecified (principal)
CPT/HCPCS: 81003

== ENCOUNTER 2024-11-18 12:21 | Outpatient (REF) | payer MEDICARE, SELFPAY ==
--- OUTSIDE RECORDS SUMMARY | 2023-08-01 09:30 | XMS_ITS ---
Author Organization The [facility] [place] Address [address] [place] [address] Care Team Providers Care Pipe Organ Mechanic Apprentice Name Role Phone None, Unknown or Primary Care Provider Unavailab Ed Early Unavailable [phone] REASON FOR VISIT Scheduled w/ [facility] - they were not sure why pt needed to be seen _ _ humana Encounters Encounter Location Date Provider Diagnosis Urology [facility] [address] [place] [address] 08/01/2023 Ed Rashid Plan Of Treatment No Information Progress Notes * Tomas SHERMANDOB:1965 (59 yo M)Acc No.[id number]:08/01/2023 UNLOCKED PROGRESS NOTE Progress Note Patient: Tomas FLNYN Provider: Yfn Rashid MD :1965 A ge:57 Y S ex:Male Date:08/01/2023 Address:[facility] [address], [place], [id number] Pcp:Unknown or None Subjective: * Chief Complaints: * 1 . Scheduled w/ [facility] - they were not sure why pt needed to be seen _ _ humana. * Medical History: Objective: * Vitals: Assessment: Plan: * Treatment: * * Electronic signature of Gil Rashid MD, [id number] on 11/18/2024 at 12:25 PM EDT Sign off status: Pending Visit Status: C ANCSMS (CANCSMS) * Provider: Yfn Rashid MD Date: 0 08/01/2023 Generated for Cathi thomas/Marcela/Manuelitting on: 0 11/18/2024 12:25 PM EDT
--- OUTSIDE RECORDS SUMMARY | 2024-09-24 09:30 | XMS_ITS ---
Author Organization [facility] es Address [address] [place] [address] Care Team Providers Care Online User Experience Strategist Name Role Phone Sp Arguelles Primary Care Provider REASON FOR VISIT Hosp f/u, BMV forms Encounters Encounter Location Date Provider Diagnosis [facility] [address] [facility] [place] [address] 09/24/2024 Sp Arguelles Plan Of Treatment Next Appt Details Provider Name:Sp murillo, 11/25/2024 11:30:00 AM, [address] [place], [address], Progress Notes * PIEDRASEBASTIAN TIRADO EDOB: 6 (59 yo M)Acc No.[id number]:09/24/2024 Progress Note Patient: SEBASTIAN FLYNN Provider: Janki Arguelles :1965 A ge:58 Y S ex:Male Date:09/24/2024 Address:[facility] [address], [place], [place] Subjective: * Chief Complaints: * 1 . Hosp f/u, BMV forms. * Medical History: Objective: * Vitals: Assessment: Plan: * Treatment: Care Plan: * Problems: * Images: * Electronic signature of Irma Arguelles DO on 11/18/2024 at 12:24 PM EDT Sign off status: Pending * Provider: Janki Arguelles Date: 0 09/24/2024 Generated for Cathi ng/Faemmag/eTransmitting on: 0 11/18/2024 12:24 PM EDT
--- OUTSIDE RECORDS SUMMARY | 2024-10-13 10:30 | XMS_ITS ---
Author Organization [facility] Servic es Address [address] [place] [address] Care Team Providers Care Air Vice Marshal Name Role Phone Sp Arguelles Primary Care Provider Gris Yoder Unavailable [phone] REASON FOR VISIT Pt is a 58 year old male, transfer from [facility] Medication SIG (Take, Route, Frequency, Duration) [...] 6 hrs As needed 07/12/2023 Active Pen [place] 5/16 31G X 8 MM with insulin [...] Active Encounters Encounter Location Date Provider Diagnosis [facility] [address] [place] [address] 10/13/2024 Gris Yoder Plan Of Treatment Next Appt Details Provider Name:Sp murillo, 11/25/2024 11:30:00 AM, [address] [place], [address], Progress Notes * SEBASTIAN PIEDRA EDOB: 6 (59 yo M)Acc No.[id number]:10/13/2024 Behavioral Health Patient: SEBASTIAN FLYNN Provider: Miak Yoder :1965 A ge:58 Y S ex:Male Date:10/13/2024 Address:[address] [place] [address], [address], [id number] Pcp:Sp Arguelles Subjective: * Chief Complaints: * 1 . Pt is a 58 year old male, transfer from [facility]. * Medical History: * Medications: T aking [...] per day at night , Taking Pen [place] 5/16 31G X 8 MM Miscellaneous with [...] Treatment: * Images: * Electronic signature of Reagan Yoder PMHNP on 11/18/2024 at 12:25 PM EDT Sign off status: Pending * Provider: Mika Yoder Date: 0 10/13/2024 Generated for Cathi thomas/Marcela/Sy on: 11/18/2024 12:25 PM EDT
--- OUTSIDE RECORDS SUMMARY | 2024-11-18 12:26 | XMS_ITS | Patient Health Record ---
Author Organization [facility] Address [address] [place] [address] [place] [address] Care Team Providers Care Director Of Property Management Name Role Phone Family, Health Services Primary Care Provider Un available Leilamookie Shaji Unavailable [phone] Reason For Referral No Information Medications Medication [...] Problem Status W/U Status Risk Notes Problem Type 2 diabetes mellitus with diabetic polyneuropathy (E11.42) Active confirmed Problem Type 2 diabetes mellitus with peripheral angiopathy (485305011) Type 2 diabetes mellitus with diabetic peripheral angiopathy without gangrene (E11.51) Active confirmed Problem Tinea unguium (472226495) Tinea unguium (B35.1) Active confirmed Plan Of Treatment No Information Insurance Providers Payer Name Payer Address Payer Phone Subscriber Number Group Number Insured Name Patient Relationship to Insured Coverage Start Date Coverage End Date [facility] [address] [place] [address] [id number] Tomas Sherman Self - patient is the insured Medical (General) History Medical History History ICD Code diabetes abcesses Surgical History Surgery Date(Month/Year) abcess removal amp of 2nd toe Hospitalization History Reason Date(Month/Year) abscess and amp of 2nd toeleft 2017
--- OUTSIDE RECORDS SUMMARY | 2024-11-18 12:26 | XMS_ITS | Patient Health Record ---
Author Organization [facility] es Address [address] [place] [address] Care Team Providers Care Tractor Sweeper Driver Name Role Phone Sp Arguelles Primary Care Provider [phone] Marco Antonio Edmondson Unavailable [phone] Gris Yoder Unavailable [phone] Sada Yadav Unavailable [phone] Ewelina Robledo Unavailable [phone] Allergies No Known Allergies Results Component Value Reference Range Notes Hemoglobin A1c Reviewed date:05/13/2024 01:38:17 PM Interpretation:7.1 Performing Lab: Notes/Report: 7.1 Hemoglobin A1c 7.1 5 - 7.9 % Hemoglobin A1c Reviewed date:02/11/2024 11:50:30 AM Interpretation:7.5 Performing Lab: Notes/Report: 7.5 Hemoglobin A1c 7.5 5 - 7.9 % Reason For Referral Reason PT SEEN would like to see new animal shelter manager Diagnosis 1 History of diabetic ulcer of foot (Z86.31) Diagnosis 2 Pain in right foot ( M79.671) Diagnosis 3 Pain in left foot (M 79.672) Referral Organization [facility] Referring Provider First Name Sp Referring Provider Last Name Blane Referring Provider [facility] ctice Referred Provider [facility] Foot a nd Ankle Specialist, . Referred Provider Specialty Podiatry Referral Priority Routine Reason counseling services 02/13/2024 Scheduled Diagnosis 1 Anxiety, generalized (F41.1) Referral Organization [facility] Referring Provider First Name Sp Referring Provider Last Name Blane Referring Provider [facility] ctice Referred Provider Specialty [facility] Referral Priority Routine Medications Medication SIG (Take, Route, Frequency, Duration) Notes Start Date End Date Status Famotidine 20 MG 1 tablet at bedtime [...] Once a day; Duration: 90 days Active Pen Manlius 5/16 31G X 8 MM with insulin subcutaneous 4 times daily; Duration: 30 days Dx E11.40 07/17/2023 Active Loperamide HCl 2 MG 1 capsule as needed Orally twice a day; Duration: 30 days 03/09/2025 Active Symbicort 80-4.5 MCG/ACT 2 puffs. Rinse mouth after Inhalation Twice a day Increase to BID dosing Not-Taking QUEtiapine Fumarate 50 MG TAKE 1 TABLET BY MOUTH AT BEDTIME; Duration: 90 Not-Taking Albuterol Sulfate HFA 108 (90 Base) MCG/ACT 1 puff as needed Inhalation every 4 hrs; Duration: 30 days Not-Taking FLUoxetine HCl 20 MG 1 capsule x 7 days then start 40mg dose Orally Once a day; Duration: 7 days 10/08/2023 Not-Taking QUEtiapine Fumarate 25 MG TAKE 1 TABLET BY MOUTH THREE TIMES A DAY Not-Taking hydrOXYzine Pamoate 25 MG 1 capsule orally twice a day; Duration: 90 days Active Albuterol Sulfate 108 (90 Base) MCG/ACT 1 puff as needed Inhalation every 4 hrs As needed 07/12/2023 Active amLODIPine Besylate 10 MG 1 tablet Orally Once a day; Duration: 90 days Active Ventolin HFA 108 (90 Base) MCG/ACT 1 puff as needed Inhalation every 4 hrs; Duration: 90 days Active FLUoxetine HCl 40 MG TAKE 1 CAPSULE BY MOUTH EVERY DAY FOR 90 DAYS; Duration: 90 Active Pravastatin Sodium 20 MG TAKE 1 TABLET BY MOUTH EVERY DAY FOR 30 DAYS; Duration: 90 Not-Taking Trulicity 1.5 MG/0.5ML as directed Subcutaneous; Duration: 15 days Not-Taking HumaLOG KwikPen 100 UNIT/ML per sliding scale [...] every 6 hrs As needed 07/12/2023 Active Gabapentin 300 MG 1 capsule Orally twice a day; Duration: 90 days Active Calcium 600 MG 1 tablet with meals Orally Twice a day 1200mg bid Active Omeprazole 40 MG TAKE 1 CAPSULE BY MOUTH 30 MINUTES BEFORE MORNING MEAL EVERY DAY; Duration: 90 Active Spiriva Respimat 2.5 MCG/ACT INHALE 2 PUFFS INTO THE LUNGS EVERY DAY FOR 30 DAYS Active Losartan Potassium 50 MG 1 tablet [...] ulcer due to type 2 diabetes mellitus (2023062729341) Type 2 diabetes mellitus with foot ulcer (E11.621) Active confirmed Problem Dermopathy due to type 2 diabetes mellitus (disorder) (9619406439285) Type 2 diabetes mellitus with other skin complications (E11.628) Active confirmed Problem Hyperkalemia (97230304) Hyperkalemia (E87.5) Active confirmed Problem Tobacco user (358886548) Nicotine dependence, unspecified, uncomplicated (F17.200) Active confirmed Problem Severe mixed bipolar I disorder without psychotic features (96977738) Bipolar disorder, current episode mixed, severe, without psychotic features (F31.63) Active confirmed Problem Tobacco use (566268872) Tobacco use (Z72.0) Active confirmed Problem Anxiety (83259833) Anxiety (F41.9) Active confi rmed Problem Gastroesophageal reflux disease (disorder) (366063987) Chronic GERD (K21.9) Active confirmed Problem COPD - Chronic obstructive pulmonary disease (08535792) Chronic obstructive pulmonary disease, unspecified COPD type (J44.9) Active confirmed Problem Attention deficit hyperactivity disorder (915443137) Attention deficit hyperactivity disorder (ADHD), unspecified ADHD type (F90.9) Active confirmed Problem Primary hypertension (00901716) Primary hypertension (I10) Active confirmed Problem Acute exacerbation of chronic obstructive airways disease (994910513) COPD exacerbation (J44.1) Active confirmed Problem Bipolar disorder (93249285) Bipolar affective disorder, remission status unspecified (F31.9) Active confirmed Problem Chronic kidney disease stage 4 (021952571) Stage 4 chronic kidney disease (N18.4) Active confirmed Problem Diabetic peripheral neuropathy associated with type 2 diabetes mellitus (6019342083487) Type 2 diabetes mellitus with diabetic neuropathy, without long-term current use of insulin (E11.40) Active confirmed Problem Non-pressure chronic ulcer of other part of unspecified foot with muscle involvement without evidence of necrosis (L97.505) Active confirmed Problem History of diabetic foot ulcer (situation) (27036038194206363) History of diabetic ulcer of foot (Z86.31) Active confirmed Problem Generalized anxiety disorder (71180576) Anxiety, generalized (F41.1) Active confirmed Problem Chronic kidney disease stage 3 (disorder) (463380697) Stage 3 chronic kidney disease, unspecified whether stage 3a or 3b CKD (N18.30) Active confirmed Problem Acute postoperative pain (631461832833618) Acute postoperative pain (G89.18) Active confirmed Problem Postoperative wound infection (38574358) Postoperative wound infection (T81.49XA) Active confirmed Vital Signs Heart Rate 86 /min 05/13/2024 Temperature 97.2 degrees Fahrenheit 05/13/2024 Respiratory Rate 18 /min 05/13/2024 Oximetry 94 % 05/13/2024 Blood pressure diastolic 69 mm Hg 05/13/2024 Height 68 in 05/13/2024 Blood pressure systolic 162 mm Hg 05/13/2024 Weight 257.2 lbs 05/13/2024 BMI 39.1 kg/m2 05/13/2024 Encounters Encounter Location Date Provider Diagnosis [facility] [address] [place] [address] 11/22/2023 Sp Arguelles Local infection of t he skin and subcutaneous tissue, unspecified L08.9 [facility] [address] [place] [address] 12/03/2023 Sp Arguelles [place] [address] [place] [address] 12/05/2023 Sp Arguelles Local infection of t he skin and subcutaneous tissue, unspecified L08.9 [facility] [address] [place] [address] 12/06/2023 Sp Arguelles [place] [address] [place] [address] 01/16/2024 Sp Arguelles [facility] [place] [address] [place] [address] 02/20/2024 Sp Arguelles Chronic obstructive pulmonary disease, unspecified COPD type J44.9 and Bipolar disorder, current episode mixed, severe, without psychotic features F31.63 [facility] [address] [place] [address] 03/04/2024 Sp Arguelles Acute cough R05.1 [facility] [address] [place] [address] 03/12/2024 Sp Arguelles [place] [address] [place] [address] 03/13/2024 Sp Arguelles [place] [address] [place] [address] 04/20/2024 Sp Arguelles [facility] [address] [place] [address] 04/27/2024 Sp Arguelles [facility] [address] [place] [address] 05/01/2024 Sp Arguelles Primary hypertension [facility] [address] [place] [address] 05/04/2024 Sp Arguelles [facility] [address] [place] [address] 05/11/2024 Sp Arguelles [facility] [address] [place] [address] 05/22/2024 Sp Arguelles [facility] [place] [address] [place] [address] 06/09/2024 Sp Arguelles Primary hypertension [facility] [address] [place] [address] 07/16/2024 Sp Arguelles Primary hypertension [facility] [address] [place] [address] 08/14/2024 Sp Arguelles Lethargy R53.83 and Abnormal breath sounds R09.89 [facility] [address] [place] [address] 08/20/2024 Sp Arguelles [facility] [address] [place] [address] 09/01/2024 Sp Arguelles [facility] [address] [place] [address] 09/08/2024 Sp Arguelles Acute diarrhea R19.7 [facility] [address] [place] [address] 09/10/2024 Sp Arguelles Diarrhea, unspecifie d type R19.7 [facility] [address] [place] [address] 10/26/2024 Sp Arguelles [facility] [address] [place] [address] 10/29/2024 Sp Arguelles [facility] [address] [place] [address] 12/19/2023 Sp Arguelles Local infection of t he skin and subcutaneous tissue, unspecified L08.9 ; History of diabetic ulcer of foot Z86.31 ; Pain in right foot M79.671 and Pain in left foot M79.672 [facility] [address] [place] [address] 05/13/2024 Sp Arguelles Type 2 diabetes mellitus with diabetic neuropathy, without long-term current use of insulin E11.40 ; Primary hypertension I10 ; COPD exacerbation J44.1 ; Candidal dermatitis B37.2 and Reducible umbilical hernia K42.9 [facility] [address] [place] [address] 02/11/2024 Sp Arguelles Type 2 diabetes mellitus with diabetic neuropathy, without long-term current use of insulin E11.40 ; Anxiety, generalized F41.1 and Chronic obstructive pulmonary disease, unspecified COPD type J44.9 Assessments Encounter Date Diagnosis (ICD Code) Assessment Notes Treatment Notes Treatment Clinical Notes Section Notes 11/22/2023 Local infection of the skin and subcutaneous tissue, unspecified (ICD-10 - L08.9) 12/05/2023 Local infection of the skin and subcutaneous tissue, unspecified (ICD-10 - L08.9) 12/19/2023 Local infection of the skin and subcutaneous tissue, unspecified (ICD-10 - L08.9) Patient with but she does previously plan for amputation, patient admits he has been noncompliant with that provider. Would like to see a different animal shelter manager at this time. We did discuss I [...] Clostridium Difficile 09/08/2024 Next Appt Details Provider Name:Sp Yon Girard , 11/25/2024 11:30:00 AM, [address] [place], [address], Insurance Providers Payer Name Payer Address Payer Phone Subscriber Number Group Number Insured Name Patient Relationship to Insured Coverage Start Date Coverage End Date [employer] MEDICARE PLAN [address] [address] [place] [address] [id number] SEBASTIAN PIEDRA Self - patient is the insured 3 MEDICAID SEC TO [employer] ADV [address] [place] [address] [phone] [id number] SEBASTIAN PIEDRA Self - patient is the insured 3 [employer] -termed 22 [address] [place] [address] [id number] SEBASTIAN PIEDRA Self - patient is the insured 2 3 [facility] after [employer]- termed 22 [address] [place] [address] [id number] SEBASTIAN PIEDRA Self - patient is the insured 2 3 z [employer]- termed 22 [address] [place] [phone] [id number] SEBASTIAN PIEDRA Self - patient is the insured 2 3 zBH MEDICAID [facility] [address] [place] [address] [id number] SEBASTIAN PIEDRA Self - patient is the insured 2 3 [employer] [place] Medicaid [address] [place] [address] [id number] SEBASTIAN PIEDRA Self - patient is the insured 3 3 [facility] [address] [place] [address] [phone] [id number] SEBASTIAN PIEDRA Self - patient is the insured 3 3 [facility] [employer] [place] Medicaid [address] [place] [address] [id number] SEBASTIAN PIEDRA Self - patient is the insured 3 3 [facility] [address] [place] [address] [id number] SEBASTIAN PIEDRA Self - patient is the insured 3 3 MEDICARE CGS [address] [place] [address] [id number] SEBASTIAN PIEDRA Self - patient is the insured 3 BH MEDICAID SEC TO [facility] [address] [place] [address] [phone] [id number] SEBASTIAN PIEDRA Self - patient is the insured 3 Medical (General) History Medical History History ICD Code Hypertension Type 2 diabetes mellitus Anxiety ADHD Congestive Heart Failure COPD Hard of Hearing bipolar obesity, morbid Esophageal reflux Stage 4 Kidney disease Depression Bilateral toe amputation (diabetic ketoa cidosis) neuropathy Surgical History Surgery Date(Month/Year) Small toe amputation on left foot 10/202 1 second toe on left foot amputation 2016 I and D Groin area x4 colonoscopy 01/2022 Lt. Arm Fistula 10/04/2022 bilateral toe amputation ( diabetic keto acidosis) 05/2023 Hospitalization History Reason Date(Month/Year) UTI 07/2023 Diabetic ketoacidosis ( 10 days) 07/2023 Low Sodium in blood, kidney problems, to e amputation 12/2020-03/2021
[2024-11-18 13:24] LABS: Potassium 5.0 mmol/L (3.5-5.1)
== END 2024-11-18 12:22 | disposition home or self-care (01) ==
LOC: LAB 12:21
PROVIDERS: PCP Family Medicine; Visit Provider Family Medicine
DX: N18.9 Chronic kidney disease, unspecified (principal)
CPT/HCPCS: 36415; 84132

== ENCOUNTER 2025-01-05 15:34 | Outpatient (OUT) | payer MEDICARE, MEDICAID, SELFPAY ==
--- OUTSIDE RECORDS SUMMARY | 2023-08-01 09:30 | XMS_ITS ---
Author Organization The [facility] in [place] Address [address] [place] [address] Care Team Providers Care Powder Loader Name Role Phone None, Unknown or Primary Care Provider Unavailab Ed Early Unavailable [phone] REASON FOR VISIT Scheduled w/ [facility] - they were not sure why pt needed to be seen _ _ humana Encounters Encounter Location Date Provider Diagnosis Urology [facility] [address] [place] [address] 08/01/2023 Ed Rashid Plan Of Treatment No Information Progress Notes * Tomas SHERMANDOB:1965 (59 yo M)Acc No.[id number]:08/01/2023 UNLOCKED PROGRESS NOTE Progress Note Patient: Tomas FLYNN Provider: Yfn Rashid MD :1965 A ge:57 Y S ex:Male Date:08/01/2023 Address:[facility] [address], [place], [place] Pcp:Unknown or None Subjective: * Chief Complaints: * 1 . Scheduled w/ [facility] - they were not sure why pt needed to be seen _ _ humana. * Medical History: Objective: * Vitals: Assessment: Plan: * Treatment: * * Electronic signature of Gil Rashid MD, [id number] on 01/05/2025 at 06:45 AM EDT Sign off status: Pending Visit Status: C ANCSMS (CANCSMS) * Provider: Yfn Rashid MD Date: 0 08/01/2023 Generated for Cathi thomas/Marcela/Sy on: 1 06:45 AM EDT
--- OUTSIDE RECORDS SUMMARY | 2024-09-04 10:30 | XMS_ITS ---
Author Organization [facility] Address [address] [place] [address] Care Team Providers Care Grader Patrol Name Role Phone Sp Arguelles Primary Care Provider [phone] Sada Yadav [phone] REASON FOR VISIT BACTEREMIA, OSTEOMYELITIS Encounters Encounter Location Date Provider Diagnosis [place] [address] [facility] [address] 09/04/2024 Sada Yadav Plan Of Treatment No Information Progress Notes * SEBASTIAN PIEDRA EDOB: 6 (59 yo M)Acc No.[id number]:09/04/2024 Progress Note Patient: SEBASTIAN FLYNN Provider: WYATT Florence :1965 A ge:58 Y S ex:Male Date:09/04/2024 Address:[facility] [address] [id number] Pcp:Sp Arguelles Subjective: * Chief Complaints: * 1 . BACTEREMIA, OSTEOMYELITIS. * Medical History: Objective: * Vitals: Assessment: Plan: * Treatment: Care Plan: * Problems: * Images: * Electronic signature of Ciera Yadav CNP on 01/05/2025 at 03:48 PM EDT Sign off status: Pending * Provider: WYATT [place] Date: 0 09/04/2024 Generated for Printi ng/Faxing/eTransmitting on: 1 03:48 PM EDT
--- OUTSIDE RECORDS SUMMARY | 2024-09-24 09:30 | XMS_ITS ---
Author Organization [facility] Address [address] [place] [address] Care Team Providers Care Screw Machine Adjuster Automatic Name Role Phone Sp Arguelles Primary Care Provider [phone] REASON FOR VISIT Hosp f/u, BMV forms Encounters Encounter Location Date Provider Diagnosis [facility] [address] [facility] [place] [address] 09/24/2024 Sp Arguelles Plan Of Treatment No Information Progress Notes * SEBASTIAN PIEDRA EDOB: [birth year] (59 yo M)Acc No.[id number]:09/24/2024 Progress Note Patient: SEBASTIAN FLYNN Provider: Janki Arguelles DO :1965 A ge:58 Y S ex:Male Date:09/24/2024 Address:[address] [place], [place] Subjective: * Chief Complaints: * 1 . Hosp f/u, BMV forms. * Medical History: Objective: * Vitals: Assessment: Plan: * Treatment: Care Plan: * Problems: * Images: * Electronic signature of Irma Arguelles DO, [id number] on 01/05/2025 at 06:45 AM EDT Sign off status: Pending * Provider: Janki Arguelles DO Date: 0 09/24/2024 Generated for Cathi thomas/Marcela/eTransmitting on: 1 06:45 AM EDT
--- OUTSIDE RECORDS SUMMARY | 2024-10-13 10:30 | XMS_ITS ---
Author Organization [facility] Servic es Address [address] [place] [address] Care Team Providers Care Heavy Threader Name Role Phone Sp Arguelles Primary Care Provider [phone] Gris Yoder Unavailable [phone] REASON FOR VISIT Pt is a 58 year old male, transfer from [facility] Medication SIG (Take, Route, Frequency, Duration) Notes Start Date End Date Status Loperamide HCl 2 MG 1 capsule as needed Orally twice a day; Duration: 30 days 03/09/2025 Active Furosemide 40 MG TAKE 1 TABLET BY MOUTH EVERY DAY FOR 30 DAYS Orally Once a day; Duration: 30 day(s) 10/14/2024 Active Gabapentin 300 MG 1 capsule Orally twice a day; Duration: 90 days Active Omeprazole 40 MG TAKE 1 CAPSULE BY MOUTH 30 MINUTES BEFORE MORNING MEAL EVERY DAY; Duration: 90 Active Losartan Potassium 50 MG 1 tablet Orally Once a day; Duration: 90 days Active hydrOXYzine Pamoate 25 MG 1 capsule orally twice a day; Duration: 90 days Active amLODIPine Besylate 10 MG 1 tablet Orally Once a day; Duration: 90 days Active Ventolin HFA 108 (90 Base) MCG/ACT 1 puff as needed Inhalation every 4 hrs; Duration: 90 days Active FLUoxetine HCl 40 MG TAKE 1 CAPSULE BY MOUTH EVERY DAY FOR 90 DAYS; Duration: 90 Active Trulicity 1.5 MG/0.5ML as directed Subcutaneous; Duration: 15 days Not-Taking Symbicort 80-4.5 MCG/ACT 2 puffs. Rinse mouth after Inhalation Twice a day Increase to BID dosing Not-Taking QUEtiapine Fumarate 50 MG TAKE 1 TABLET BY MOUTH AT BEDTIME; Duration: 90 Not-Taking Albuterol Sulfate HFA 108 (90 Base) MCG/ACT 1 puff as needed Inhalation every 4 hrs; Duration: 30 days Not-Taking QUEtiapine Fumarate 25 MG TAKE 1 TABLET BY MOUTH THREE TIMES A DAY Not-Taking Pravastatin Sodium 20 MG TAKE 1 TABLET BY MOUTH EVERY DAY FOR 30 DAYS; Duration: 90 Not-Taking FLUoxetine HCl 20 MG 1 capsule x 7 days then start 40mg dose Orally Once a day; Duration: 7 days 10/08/2023 Not-Taking Famotidine 20 MG 1 tablet at bedtime as needed Orally Once a day; Duration: 90 days Active Carvedilol 12.5 MG 1 tablet with food Orally Twice a day; Duration: 30 days Active Alcohol Wipes 70 % as directed prior to sugar checks and insulin administration Externally 8 times daily; Duration: 30 days 08/08/2023 Active Glimepiride 4 MG 2 tablets with breakfast or the first main meal of the day Orally Once a day; Duration: 90 days Active HumaLOG KwikPen 100 UNIT/ML per sliding scale Subcutaneous three times a day with meals As needed up to 20 units daily. 07/12/2023 Active Lantus SoloStar 100 UNIT/ML 30 units Subcutaneous once per day at night 07/12/2023 Active Sodium Bicarbonate 650 MG 2 tablets Orally three times a day (tid); Duration: 30 days Active Albuterol Sulfate (2.5 MG/3ML) 0.083% 3 mL as needed Inhalation every 6 hrs As needed 07/12/2023 Active Pen Blum 5/16 31G X 8 MM with insulin subcutaneous 4 times daily; Duration: 30 days Dx E11.40 07/17/2023 Active Calcium 600 MG 1 tablet with meals Orally Twice a day 1200mg bid Active Spiriva Respimat 2.5 MCG/ACT INHALE 2 PUFFS INTO THE LUNGS EVERY DAY FOR 30 DAYS Active Albuterol Sulfate 108 (90 Base) MCG/ACT 1 puff as needed Inhalation every 4 hrs As needed 07/12/2023 Active Encounters Encounter Location Date Provider Diagnosis [facility] [address] [place] [address] 10/13/2024 Gris Yoder Plan Of Treatment No Information Progress Notes * SEBASTIAN PIEDRA EDOB: 6 (59 yo M)Acc No.[id number]:10/13/2024 Behavioral Health Patient: SEBASTIAN FLYNN Provider: Mika Yoder :1965 A ge:58 Y S ex:Male Date:10/13/2024 Address:[address], [address], [id number] Pcp:Sp Arguelles Subjective: * Chief Complaints: * 1 . Pt is a 58 year old male, transfer from [facility]. * Medical History: * Medications: T aking Albuterol Sulfate 108 (90 Base) MCG/ACT Aerosol Powder Breath Activated 1 puff as needed Inhalation every 4 hrs As needed, Taking Calcium 600 MG Tablet 1 tablet with meals Orally Twice a day , Notes to Pharmacist: 1200mg bid, Taking Spiriva Respimat 2.5 MCG/ACT Aerosol Solution INHALE 2 PUFFS INTO THE LUNGS EVERY DAY FOR 30 DAYS , Taking Sodium Bicarbonate 650 MG Tablet 2 tablets Orally three times a day (tid) , Taking Albuterol Sulfate (2.5 MG/3ML) 0.083% Nebulization Solution 3 mL as needed Inhalation every 6 hrs As needed, Taking HumaLOG KwikPen 100 UNIT/ML Solution Pen-injector per sliding scale Subcutaneous three times a day with meals As needed, Notes to Pharmacist: up to 20 units daily., Taking Lantus SoloStar 100 UNIT/ML Solution Pen-injector 30 units Subcutaneous once per day at night , Taking Pen Blum 5/16 31G X 8 MM Miscellaneous with insulin subcutaneous 4 times daily , Notes to Pharmacist: Dx E11.40, Taking Alcohol Wipes 70 % Miscellaneous as directed prior to sugar checks and insulin administration Externally 8 times daily , Taking Glimepiride 4 MG Tablet 2 tablets with breakfast or the first main meal of the day Orally Once a day , Taking Famotidine 20 MG Tablet 1 tablet at bedtime as needed Orally Once a day , Taking Carvedilol 12.5 MG Tablet 1 tablet with food Orally Twice a day , Taking Ventolin HFA 108 (90 Base) MCG/ACT Aerosol Solution 1 puff as needed Inhalation every 4 hrs , Taking FLUoxetine HCl 40 MG Capsule TAKE 1 CAPSULE BY MOUTH EVERY DAY FOR 90 DAYS , Taking hydrOXYzine Pamoate 25 MG Capsule 1 capsule orally twice a day , Taking amLODIPine Besylate 10 MG Tablet 1 tablet Orally Once a day , Taking Omeprazole 40 MG Capsule Delayed Release TAKE 1 CAPSULE BY MOUTH 30 MINUTES BEFORE MORNING MEAL EVERY DAY , Taking Losartan Potassium 50 MG Tablet 1 tablet Orally Once a day , Taking Furosemide 40 MG Tablet TAKE 1 TABLET BY MOUTH EVERY DAY FOR 30 DAYS Orally Once a day , stop date 10/14/2024, Taking Gabapentin 300 MG Capsule 1 capsule Orally twice a day , Taking Loperamide HCl 2 MG Capsule 1 capsule as needed Orally twice a day , stop date 03/09/2025, Not-Taking/PRN FLUoxetine HCl 20 MG Capsule 1 capsule x 7 days then start 40mg dose Orally Once a day , Not- Taking/PRN QUEtiapine Fumarate 25 MG Tablet TAKE 1 TABLET BY MOUTH THREE TIMES A DAY , Not-Taking/PRN QUEtiapine Fumarate 50 MG Tablet TAKE 1 TABLET BY MOUTH AT BEDTIME , Not-Taking/PRN Albuterol Sulfate HFA 108 (90 Base) MCG/ACT Aerosol Solution 1 puff as needed Inhalation every 4 hrs , Not-Taking/PRN Symbicort 80-4.5 MCG/ACT Aerosol 2 puffs. Rinse mouth after Inhalation Twice a day , Notes to Pharmacist: Increase to BID dosing, Not-Taking/PRN Pravastatin Sodium 20 MG Tablet TAKE 1 TABLET BY MOUTH EVERY DAY FOR 30 DAYS , Not-Taking/PRN Trulicity 1.5 MG/0.5ML Solution Pen- injector as directed Subcutaneous Objective: * Vitals: Assessment: Plan: * Treatment: * Images: * Electronic signature of CASSANDRA Ratliff on 01/05/2025 at 06:45 AM EDT Sign off status: Pending * Provider: Mika Yoder Date: 0 10/13/2024 Generated for Cathi thomas/Marcela/Sy on: 1 06:45 AM EDT
--- OUTSIDE RECORDS SUMMARY | 2024-11-25 07:30 | XMS_ITS ---
Author Organization [facility] Address [address] [place] [address] Care Team Providers Care Oracle Hrms Developer Name Role Phone Sp Arguelles Primary Care Provider REASON FOR VISIT med refills, specialty f/u appt Encounters Encounter Location Date Provider Diagnosis [facility] [address] [place] [facility] [place] [place] [address] 11/25/2024 Sp Arguelles Plan Of Treatment No Information Progress Notes * SEBASTIAN PIEDRA EDOB: [birth year] (59 yo M)Acc No.[id number]:11/25/2024 Progress Notes Patient: SEBASTIAN FLYNN Provider: Janki Arguelles DO :1965 A ge:59 Y S ex:Male Date:11/25/2024 Address:[address], [place], [id number] Subjective: * Chief Complaints: * 1 . Med refills, specialty f/u appt. * Medical History: Objective: * Vitals: Assessment: Plan: * Treatment: * Images: * Electronic signature of Irma Arguelles DO, [id number] on 01/05/2025 at 06:45 AM EDT Sign off status: Pending * Provider: Janki Arguelles DO Date: 0 11/25/2024 Generated for Cathi ng/Faemmag/eTransmitting on: 1 06:45 AM EDT
--- OUTSIDE RECORDS SUMMARY | 2024-12-28 14:10 | XMS_ITS | Encounter Summary ---
Author Organization [facility] Address [address] [place] [address] Care Team Providers Care Adjunct Professor Name Role Phone Portia Land MD Primary Care Provider [phone] Reason for Visit * Reason Comments Follow-up Rt ulcer check Encounter Details Date Type Department Care Team (Late st Contact Info) Description 12/28/2024 2:10 PM EDT Office Visit [facility] [address] [place] [address] Chele Lopez DPM [address] [address] Diabetes mellitus due to underlying condition with diabetic polyneuropathy, with long-term current use of insulin (HCC) (Primary Dx); Ulcer of foot, chronic, right, with necrosis of bone (HCC) Social History Tobacco Use Types Packs/Day Years Used Date Smoking Tobacco: Every Day Cigarettes 1 45.8 Started: 1979 Smokeless Tobacco: Never Tobacco Cessation:Ready to Q uit: Not Asked; Counseling Given: Yes Alcohol Use Standard Drinks/Week Comments Never 0 (1 standard drink = 0.6 oz pur e alcohol) Sex and Gender Information Value Date Recorded Sex Assigned at Male 10/14/2022 3:37 PM EDT Legal Sex Male 7:00 PM EDT Gender Identity Male 10/14/2022 3:37 PM EDT Sexual Orientation Straight 10/14/2022 3: 37 PM EDT documented as of this encounter Last Filed Vital Signs Vital Sign Reading Time Taken Comments Blood Pressure - - Pulse - - Temperature - - Respiratory Rate 16 12/28/2024 2:17 PM EDT Oxygen Saturation - - Inhaled Oxygen Concentration - - Weight 113 kg (250 lb) 12/28/2024 2:17 PM EDT Height 172.7 cm (5' 8 ) 12/28/2024 2:17 PM EDT Body Mass Index 38.01 12/28/2024 2:17 PM EDT documented in this encounter Progress Notes * Chele Lopez, ELDER - 12/28/2024 2:10 PM EDT Patient: Tomas Sherman : 1965 PCP: Portia Land MD SUBJECTIVE This is a 59 y.o. male that presents today 12 wks s/p right TMA with wound vac. Pt is in [place] . Patient currently is 7 wks post STSG, a staged procedure Pt denies n/f/v/c and has minimal pain to post op site. Pt states that they have been keeping dressing dry and intact and have been non weightbearing to post op foot Pt presents today for follow up. Patient states the dressing had to be change between visits Patient currently at [facility] Pt has had wound vac to area of ulceration and graft. Discussion of possible further split-thickness skin graft to the area of ulceration in the near future Allergies: No Known Allergies Past Medical History: Past Medical History: Diagnosis Date ADD (attention deficit disorder) Alcoholism (HCC) Anxiety Benign essential hypertension Depression Diabetes (HCC) Diabetes mellitus ([facility]) 2009 Diabetes mellitus without complication, type II or unspecified type, uncontrolled Hyperlipidemia Peripheral neuropathy Medications: Current Outpatient Medications: albuterol HFA 90 mcg/act inhaler, INHALE 1 PUFF INTO THE LUNGS EVERY 4 HOURS NEEDED FOR 30 DAYS,Disp: , Rfl: amLODIPine (Norvasc) 10 MG tablet, Take 10 mg by mouth in the morning., Disp: , Rfl: busPIRone (Buspar) 30 MG tablet, TAKE 1 TABLET BY MOUTH TWICE A DAY NEEDED ANXIETY, Disp: , Rfl: calcium acetate (Phoslo) 667 MG tablet, TAKE 2 CAPSULES BY MOUTH 3 TIMES A DAY WITH MEALS, Disp: , Rfl: carvedilol (Coreg) 12.5 MG tablet, Take 12.5 mg by mouth. Take with food., Disp: , Rfl: ergocalciferol (Vitamin D2) 1.25 MG (45394 UT) capsule, Take 1 capsule by mouth 1 (one) time per week., Disp: , Rfl: FLUoxetine (PROzac) 40 MG capsule, TAKE 1 CAPSULE BY MOUTH EVERY DAY FOR 30 DAYS, Disp: , Rfl: furosemide (Lasix) 40 MG tablet, TAKE 1 TABLET BY MOUTH EVERY DAY FOR 90 DAYS, Disp: , Rfl: gabapentin (Neurontin) 400 MG capsule, Take 400 mg by mouth in the morning and 400 mg in the evening and 400 mg before bedtime., Disp: , Rfl: glimepiride (Amaryl) 4 MG tablet, TAKE 1 TABLET BY MOUTH EVERY DAY WITH BREAKFAST OR THE FIRST MAINMEAL OF THE DAY, Disp: , Rfl: loperamide (Imodium) 2 MG capsule, TAKE 1 CAPSULE BY MOUTH TWICE A DAY NEEDED, Disp: , Rfl: losartan (Cozaar) 50 MG tablet, TAKE 1 TABLET BY MOUTH EVERY DAY FOR 90 DAYS, Disp: , Rfl: methylphenidate ER (Concerta) 54 MG CR tablet, TAKE 1 TABLET BY MOUTH EVERY DAY IN THE MORNING FOR 30 DAYS, Disp: , Rfl: omeprazole (PriLOSEC) [address] capsule, TAKE 1 CAPSULE BY MOUTH 30 MINUTES BEFORE MORNING MEAL EVERY DAY FOR 90 DAYS, Disp: , Rfl: pravastatin (Pravachol) 20 MG tablet, TAKE 1 TABLET BY MOUTH EVERY DAY FOR 30 DAYS, Disp: , Rfl: sodium bicarbonate 650 MG tablet, TAKE 2 TABLETS BY MOUTH 3 TIMES A DAY FOR 90 DAY(S), Disp: , Rfl: Symbicort 80-4.5 MCG/ACT inhaler, INHALE 2 PUFFS BY MOUTH TWICE A DAY . RINSE MOUTH AFTER INHALATION, Disp: , Rfl: Trulicity 1.5 MG/0.5ML solution pen-injector, USE DIRECTED SUBCUTANEOUSLY ONCE WEEKLY 28 DAYS, Disp: , Rfl: ROS: Musculoskeletal: positive history of generalized osteoarthritis Cardiovascular: denies CP, palpitations, irregular rhythms GI: denies abdominal pain, loose stool or cramping. OBJECTIVE LE EXAM: Derm: teresa and STSG is now not intact to ulcerative site with a 11 cm by for cm x 0.4 cm to bonethickness depth ulceration with slight fibrous slough and negative erythema or drainage with probe to bone to 1st metatarsal and 2nd metatarsal minimally Vascular: barely Palpable pedal pulses to right foot Neuro: Gross sensation absent to right foot. Musculoskeletal: Negative pain on palpation to right calf. Ortho: Ankle range of motion less than 10 degrees of dorsiflexion at right ankle joint. negative POP to right calf ASSESSMENT 11 wks s/p TMA right foot with wound graft 6 wks s/p STSG right foot 1. Diabetes mellitus due to underlying condition with diabetic polyneuropathy, with long-term current use of insulin (HCC) 2. Ulcer of foot, chronic, right, with necrosis of bone (HCC) PLAN Sharp debridement with 15 blade of subcutaneous ulceration to right foot with active bleeding notedand removal and excision of fibrotic and necrotic tissue and bone of 1st metatarsal and 2nd metatarsal to wound and DSD applied with neosporin. Todays procedure is a staged procedure and may need further procedures in the future. Pt to continue with wound VAC daily in long-term at 125 mmHg to be changed 2- 3 times per week and continue with long-term care Set to variable setting Continue with PT Patient to follow up next week for preop in will apply Integra graft in the next 2 weeks for a staged procedure Chele Lopez DPM documented in this encounter Plan of Treatment Upcoming Encounters Date Type Department Care Team (Late st Contact Info) Description 01/22/2025 1:50 PM EDT Office Visit [facility] [address] [place] [address] Chele Lopez DPM [address] [address] documented as of this encounter Visit Diagnoses Diagnosis Diabetes mellitus due to underlying condition with diabetic polyneuropathy, with long-term current use of insulin (HCC)- Primary Ulcer of foot, chronic, right, with necrosis of bone (HCC) documented in this encounter Care Teams Adjunct Professor Relationship Specialty Start Date End Date Portia Land MD [address] [place] [address] PCP - General Family Medicine 09/13/22 documented as of this encounter
--- OUTSIDE RECORDS SUMMARY | 2025-01-04 14:20 | XMS_ITS | Encounter Summary ---
Author Organization [facility] Address [address] [place] [address] Care Team Providers Care [employer] Field Supervisor Name Role Phone Portia Land MD Primary Care Provider Reason for Visit * Reason Comments Consent Or Instructions preop Encounter Details Date Type Department Care Team (Late st Contact Info) Description 01/04/2025 2:20 PM EDT Office Visit [facility] [address] [place] [id number] Chele Lopez DPM [address] [address] Diabetes mellitus due to underlying [...] - Temperature - - Respiratory Rate 16 01/04/2025 2:25 PM EDT Oxygen Saturation - - Inhaled Oxygen Concentration - - Weight 113 kg (250 lb) 01/04/2025 2:25 PM EDT Height 172.7 cm (5' 8 ) 01/04/2025 2:25 PM EDT Body Mass Index 38.01 01/04/2025 2:25 PM EDT documented in this encounter Progress Notes * Chele Lopez, ELDER - 01/04/2025 2:20 PM EDT Patient: Tomas Sherman : 1965 PCP: Portia Land MD SUBJECTIVE This is a 59 y.o. male that presents today 12 wks s/p right TMA with wound vac. Pt is in [place] . Patient currently is 7 wks post STSG, a staged procedure Pt denies n/f/v/c and has minimal pain to post op site. Pt states that they have been keeping dressing dry and intact and have been non weightbearing to post op foot Pt presents today for follow up. Patient states the dressing had to be change between visits Patient currently at [facility] Pt has had wound vac to area of ulceration and graft. Pt presents today for evaluation for a staged procedure of an Integra wound graft to the right foot. Allergies: No Known Allergies Past Medical History: Past Medical History: Diagnosis Date ADD (attention deficit disorder) Alcoholism (HCC) Anxiety Benign essential hypertension Depression Diabetes (HCC) Diabetes mellitus ([facility]) 2009 Diabetes mellitus without complication, [...] , Rfl: ergocalciferol (Vitamin D2) 1.25 MG (56097 UT) capsule, Take 1 capsule by mouth [...] stool or cramping. OBJECTIVE LE EXAM: Derm: STSG is now not intact to ulcerative site with a 10 cm by 2.5 cm x 0.4 cm to bone thickness depth ulceration with slight fibrous slough and [...] joint. negative POP to right calf ASSESSMENT 12 wks s/p TMA right foot with wound graft 7 wks s/p STSG right foot 1. Diabetes [...] to continue with wound VAC daily in retirement at 125 mmHg to be changed 2- 3 times per week and continue with retirement care Set to variable setting Continue with PT Decision for surgery today and patient cleared from a podiatric/ medical standpoint for surgery andto proceed with surgery. Pt scheduled for a right foot wound graft, most likely integra graft, a staged procedure. Discussed with the patient the nature of condition and operative vs nonoperative care. The surgicalplans, risks, alternatives, benefits, post op complications and fdc expectations were discussed including but not limited to: infection,bone infection,wound dehiscence hardware failure and irritation,wound dehiscence,delay union/mal union/non union of bone. RSDS,neuroma,duty limitations,DVT/PE, [place],nerve damage, scar, loss of sensation, swelling. Pt understands the proposed sx in detail and has agreed with proposed surgery. No guarantees were given or implied. Pt willingly consents to procedure and to have surgical procedure. Pt also understands risks including COVID-19 current risk in a surgical setting. Pt is a low acceptable risk for outpatient surgery from a podiatric/medical standpoint with an ASA of a 3. Chele Lopez DPM, FACFAS H&P up to date and current (date) Date: January 04, 2025 Chele Lopez DPM documented in this encounter Plan of Treatment Upcoming Encounters Date Type Department Care Team (Late st Contact Info) Description 01/22/2025 1:50 PM EDT Office Visit [facility] [address] [place] [id number] Chlee Lopez DPM [address] [id number] documented as of this encounter Visit Diagnoses Diagnosis Diabetes mellitus due to underlying condition with diabetic polyneuropathy, with long-term current use of insulin (HCC)- Primary Ulcer of foot, chronic, right, with necrosis of bone (HCC) documented in this encounter Care Teams [employer] Field Supervisor Relationship Specialty Start Date End Date Portia Land MD [address] [place] [address] PCP - General Family Medicine 09/13/22 documented as of this encounter
--- OUTSIDE RECORDS SUMMARY | 2025-01-05 15:48 | XMS_ITS | Continuity of Care Document ---
Author Organization [facility] Address [address] [place] [address] Care Team Providers Care Shallot Packer Name Role Phone Efren Jimenez MD Attending Physician Medications Medication Frequency Instructions Diagnosis Start Date End Date Last Administered acetaminophen 325 mg capsule Every 4 Hours - PRN 2 tabs, oral, Every 4 Hours - PRN, mild pain of fever 12/19/2024 12:34 AM albuterol sulfate 90 mcg/actuation HFA aerosol inhaler Every 4 Hours - PRN 1 puff, inhalation, Every 4 Hours - PRN J44.9 : Chronic obstructive pulmonary disease, unspecified ascorbic acid (vitamin C) 500 mg tablet Once A Day 1 tab, oral, Once A Day, supplement 12/26/2024 04:21 AM aspirin 81 mg tablet,delayed release (DR/EC) Once A Day 1 tab, oral, Once A Day I10 : Essential (primary) hypertension 12/26/2024 04:21 AM calcium acetate 667 mg tablet Three Times A Day 2 tabs, oral, Three Times A Day 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, acquired 12/26/2024 04:07 PM carvedilol 12.5 mg tablet Twice A Day 1 tab, oral, Twice A Day I10 : Essential (primary) hypertension 12/26/2024 04:07 PM ferrous sulfate 324 mg (65 mg iron) tablet,delayed release (DR/EC) Once A Day Every Other Day 1 tab, oral, Once A Day Every Other Day, supplement D64.9 : Anemia, unspecified 12/26/2024 07:55 AM fluoxetine 40 mg capsule Once A Day 1 cap, oral, Once A Day F33.9 : Major depressive disorder, recurrent, unspecified 12/26/2024 04:21 AM gabapentin 300 mg capsule Twice A Day 1 cap, oral, Twice A Day 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 12/26/2024 09:52 PM Lasix (furosemide) 40 mg tablet Once A Day 1 tab, oral, Once A Day I10 : Essential (primary) hypertension 12/26/2024 04:21 AM nicotine 21 mg/24 hr patch 24 hour Once A Day 1 patch, transdermal, Once A Day 12/26/2024 07:55 AM omeprazole 20 mg capsule,delayed release(DR/EC) Once A Day 20mg, oral, Once A Day 12/26/2024 04:21 AM Percocet (oxycodone-aceta minophen) 7.5-325 mg tablet Every 6 Hours - PRN 7.5-325mg, oral, Every 6 Hours - PRN 12/26/2024 10:19 PM Saccharomyces boulardii 250 mg capsule Twice A Day 1 cap, oral, Twice A Day, d/t longwall foreman atb 12/26/2024 04:07 PM sodium bicarbonate 650 mg tablet Three Times A Day 1 tab, oral, Three Times A Day, supplement 12/26/2024 04:07 PM oxycodone-acetam inophen 10-325 mg tablet Every 4 Hours - PRN 1 tab, oral, Every 4 Hours - PRN, pain T81.49XD : Infection following a procedure, other surgical site, subsequent encounter 202412/14/2024 05:18 AM Rezvoglar KwikPen (insulin glargine-aglr) 100 unit/mL (3 mL) insulin pen Twice A Day 30 units, subcutaneous, Twice A Day 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 202412/07/2024 06:28 AM Problems Code Type Problem ICD Code Effective Date Status ICD-10 Other acute osteomye litis, right ankle and foot M86.171 09/23/2024 Active ICD-10 Methicillin resistan t Staphylococcus aureus infection, unspecified site A49.02 09/23/2024 Active ICD-10 Infection following a procedure, other surgical site, subsequent encounter T81.49XD 09/23/2024 Acti ve ICD-10 Morbid (severe) obes ity due to excess calories E66.01 09/28/2024 Active ICD-10 Partial traumatic am putation of two or more right lesser toes, 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 09/23/2024 Active ICD-10 Type 2 diabetes cliff itus with diabetic polyneuropathy E11.42 09/23/2024 Active ICD-10 Chronic obstructive pulmonary disease, unspecified J44.9 09/23/2024 Active ICD-10 Hyperlipidemia, unspecified E78.5 09/24/19 Active ICD-10 Other asthma J45.998 09/23/2024 Active ICD-10 Anemia, unspecified D64.9 09/23/2024 Activ e ICD-10 Major depressive dis order, recurrent, unspecified F33.9 09/23/2024 Active ICD-10 Polyneuropathy, unspecified G62.9 09/24/19 Active ICD-10 Essential (primary) hypertension I10 Active ICD-10 Attention-deficit hy peractivity disorder, combined type F90.2 09/23/2024 Active ICD-10 Arteriovenous fistula, 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 08/31 Active ICD-10 Primary insomnia F51.01 09/23/2024 Active ICD-10 Gastro-esophageal re flux disease without esophagitis K21.9 09/23/2024 Active ICD-10 Unspecified osteoarthritis, unspecified site M1 9.90 09/23/2024 Active ICD-10 Muscle weakness (generalized) M62.81 2024 Active ICD-10 Dysphagia, oral phase R13.11 09/28/2024 Act snow ICD-10 Difficulty in walkin g, not elsewhere classified R26.2 09/27/2024 Active ICD-10 Cognitive communication deficit R41.841 09/01 Active ICD-10 Limitation of activities due to disability Z73. 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 09/23/2024 Active Current Allergies and Intolerances Category Substance Type Reaction Severity Begin Date Status Drug Allergy No known drug allergies Allergy Active Vital Signs Height: 68.0 in Date / Time Temperature Pulse (per minute) Respirations (per minute) Systolic BP (mmHg) Diastolic BP (mmHg) O2 Saturation (%) Weight BMI 2024 12:34 AM 98.0 F 2024 06:46 PM 97.9 F 65 18 144 82 97.0 2024 10:40 AM 277.0 lbs 42.1 1 2024 01:57 PM 274.0 lbs 41.6 6 2024 10:25 AM 97.8 F 78 18 129 72 98.0 2024 06:31 AM 98.0 F 75 18 137 71 98.0 2024 06:34 AM 98.3 F 73 18 153 75 98.0 2024 04:11 AM 98.2 F 70 18 166 80 98.0 2024 02:09 AM 98.6 F 70 20 154 72 98.0 2024 01:45 AM 98.2 F 66 18 149 71 98.0 2024 05:40 AM 98.3 F 62 18 155 75 98.0 2024 12:58 AM 98.2 F 60 20 166 63 97.0 2024 06:36 AM 76 18 162 66 99.0 2024 02:51 PM 262.0 lbs 39.8 3 2024 09:14 PM 261.2 lbs 39.7 1 2024 11:05 PM 261.4 lbs 39.7 4 2024 06:34 PM 257.6 lbs 39.1 6 2024 02:49 PM 257.2 lbs 39.1 Advance Directives Directive Note Full Code Insurance Providers Payer Policy type Group Name Group number Policy ID Address Phone Medicare A Medicare Part A [id number] P bessie: Fax: [employer] Levels Commercial Insurance [id number] Phone: Fax: [employer] Part B Like Medicare Part B [id number] Phone: Fax: Vaccinations - [employer] Like Medicare Part B [id number] [id number] [place] [phone] Fax: Medicaid [place] Pending Medicaid (State) [id number] Phone: Fax: Medicaid [place] Medicaid [place] [id number] Phone: Fax: Managed Coins Medicaid - Medicaid [place] Medicaid ([place]) [id number] [facility], [address] [place] [address] Phone: Fax: Managed Coins Private Private Phone: Fax: Private Pay Private Phone: Fax: Immunizations Vaccine Field Seismologist Date Status Dose Series Complete COVID-19 Vaccine 09/27/2024 Refused Influenza Vaccine 03/28/2024 Completed Pneumococcal Vaccine 04/26/2022 Completed Pneumococcal Vaccine 05/20/2014 Completed RSV Vaccine 09/27/2024 Refused Procedures Not available for this record Results Name Date Time Positive/Negative Value Unit Range Blood Sugar 12/26/2024 09:47 PM 299.0 mg/dL Blood Sugar 12/26/2024 04:06 PM 299.0 mg/dL Blood Sugar 12/26/2024 11:11 AM 283.0 mg/dL Blood Sugar 12/26/2024 05:59 AM 107.0 mg/dL Blood Sugar 12/25/2024 09:44 PM 314.0 mg/dL Blood Sugar 12/25/2024 05:09 PM 246.0 mg/dL Blood Sugar 12/25/2024 12:22 PM 221.0 mg/dL Blood Sugar 12/25/2024 06:00 AM 152.0 mg/dL Blood Sugar 12/24/2024 07:51 PM 273.0 mg/dL Blood Sugar 12/24/2024 05:39 PM 266.0 mg/dL Blood Sugar 12/24/2024 12:13 PM 289.0 mg/dL Blood Sugar 12/24/2024 05:34 AM 148.0 mg/dL Blood Sugar 12/23/2024 07:19 PM 228.0 mg/dL Blood Sugar 12/23/2024 03:59 PM 203.0 mg/dL Blood Sugar 12/23/2024 11:37 AM 221.0 mg/dL Blood Sugar 12/23/2024 05:47 AM 100.0 mg/dL Blood Sugar 12/22/2024 08:59 PM 391.0 mg/dL Blood Sugar 12/22/2024 04:14 PM 202.0 mg/dL Blood Sugar 12/22/2024 11:06 AM 269.0 mg/dL Blood Sugar 12/22/2024 04:21 AM 185.0 mg/dL Blood Sugar 12/21/2024 08:14 PM 399.0 mg/dL Blood Sugar 12/21/2024 04:08 PM 163.0 mg/dL Blood Sugar 12/21/2024 11:13 AM 262.0 mg/dL Blood Sugar 12/21/2024 06:20 AM 166.0 mg/dL Blood Sugar 12/20/2024 07:34 PM 289.0 mg/dL Blood Sugar 12/20/2024 12:15 PM 176.0 mg/dL Blood Sugar 12/20/2024 06:34 AM 346.0 mg/dL Blood Sugar 12/19/2024 09:12 PM 479.0 mg/dL Blood Sugar 12/19/2024 05:23 PM 348.0 mg/dL Blood Sugar 12/19/2024 11:30 AM 316.0 mg/dL Blood Sugar 12/19/2024 04:00 AM 114.0 mg/dL Blood Sugar 12/18/2024 08:27 PM 279.0 mg/dL Blood Sugar 12/18/2024 04:33 PM 212.0 mg/dL Blood Sugar 12/18/2024 11:10 AM 333.0 mg/dL Blood Sugar 12/18/2024 06:39 AM 125.0 mg/dL Blood Sugar 12/17/2024 08:16 PM 307.0 mg/dL Blood Sugar 12/17/2024 04:25 PM 290.0 mg/dL Blood Sugar 12/17/2024 11:15 AM 274.0 mg/dL Blood Sugar 12/17/2024 03:58 AM 188.0 mg/dL Blood Sugar 12/16/2024 07:30 PM 226.0 mg/dL Blood Sugar 12/16/2024 03:49 PM 206.0 mg/dL Blood Sugar 12/16/2024 11:23 AM 363.0 mg/dL Blood Sugar 12/16/2024 02:08 AM 140.0 mg/dL Blood Sugar 12/15/2024 07:27 PM 333.0 mg/dL Blood Sugar 12/15/2024 05:21 PM 263.0 mg/dL Blood Sugar 12/15/2024 12:09 PM 216.0 mg/dL Blood Sugar 12/15/2024 05:20 AM 215.0 mg/dL Blood Sugar 12/14/2024 09:35 PM 129.0 mg/dL Blood Sugar 12/14/2024 04:49 PM 418.0 mg/dL Blood Sugar 12/14/2024 05:39 AM 135.0 mg/dL Blood Sugar 12/13/2024 09:32 PM 285.0 mg/dL Blood Sugar 12/13/2024 04:19 PM 252.0 mg/dL Blood Sugar 12/13/2024 11:25 AM 234.0 mg/dL Blood Sugar 12/13/2024 05:41 AM 144.0 mg/dL Blood Sugar 12/12/2024 08:25 PM 297.0 mg/dL Blood Sugar 12/12/2024 04:09 PM 267.0 mg/dL Blood Sugar 12/12/2024 11:11 AM 188.0 mg/dL Blood Sugar 12/12/2024 05:09 AM 297.0 mg/dL Blood Sugar 12/11/2024 08:15 PM 292.0 mg/dL Blood Sugar 12/11/2024 05:27 PM 220.0 mg/dL Blood Sugar 12/11/2024 01:02 PM 187.0 mg/dL Blood Sugar 12/11/2024 05:49 AM 141.0 mg/dL Blood Sugar 12/10/2024 07:58 PM 221.0 mg/dL Blood Sugar 12/10/2024 05:35 PM 209.0 mg/dL Blood Sugar 12/10/2024 12:35 PM 245.0 mg/dL Blood Sugar 12/10/2024 07:36 AM 130.0 mg/dL Blood Sugar 12/09/2024 09:12 PM 334.0 mg/dL Blood Sugar 12/09/2024 04:08 PM 223.0 mg/dL Blood Sugar 12/09/2024 10:47 AM 194.0 mg/dL Blood Sugar 12/09/2024 06:25 AM 152.0 mg/dL Blood Sugar 12/08/2024 08:38 PM 244.0 mg/dL Blood Sugar 12/08/2024 04:38 PM 266.0 mg/dL Blood Sugar 12/08/2024 11:02 AM 257.0 mg/dL Blood Sugar 12/08/2024 06:04 AM 107.0 mg/dL Blood Sugar 12/07/2024 09:29 PM 245.0 mg/dL Blood Sugar 12/07/2024 03:54 PM 285.0 mg/dL Blood Sugar 12/07/2024 11:01 AM 223.0 mg/dL Blood Sugar 12/07/2024 06:28 AM 207.0 mg/dL Blood Sugar 12/06/2024 07:45 PM 399.0 mg/dL Blood Sugar 12/06/2024 04:29 PM 275.0 mg/dL Blood Sugar 12/06/2024 12:16 PM 263.0 mg/dL Blood Sugar 12/06/2024 05:15 AM 157.0 mg/dL Blood Sugar 12/06/2024 12:29 AM 398.0 mg/dL Blood Sugar 12/05/2024 04:45 PM 328.0 mg/dL Blood Sugar 12/05/2024 12:49 PM 242.0 mg/dL Blood Sugar 12/05/2024 05:25 AM 105.0 mg/dL Blood Sugar 12/04/2024 08:33 PM 334.0 mg/dL Blood Sugar 12/04/2024 03:58 PM 234.0 mg/dL Blood Sugar 12/04/2024 11:50 AM 220.0 mg/dL Blood Sugar 12/04/2024 06:17 AM 130.0 mg/dL Blood Sugar 12/03/2024 08:08 PM 253.0 mg/dL Blood Sugar 12/03/2024 04:24 PM 270.0 mg/dL Blood Sugar 12/03/2024 11:25 AM 193.0 mg/dL Blood Sugar 12/03/2024 04:07 AM 217.0 mg/dL Blood Sugar 12/02/2024 09:52 PM 276.0 mg/dL Blood Sugar 12/02/2024 04:17 PM 230.0 mg/dL Blood Sugar 12/02/2024 11:41 AM 241.0 mg/dL Blood Sugar 12/02/2024 06:08 AM 155.0 mg/dL Blood Sugar 12/01/2024 09:11 PM 325.0 mg/dL Blood Sugar 12/01/2024 04:55 PM 201.0 mg/dL Blood Sugar 12/01/2024 12:20 PM 152.0 mg/dL Blood Sugar 12/01/2024 05:49 AM 146.0 mg/dL Blood Sugar 11/30/2024 06:55 PM 302.0 mg/dL Blood Sugar 11/30/2024 03:35 PM 224.0 mg/dL Blood Sugar 11/30/2024 12:43 PM 186.0 mg/dL Blood Sugar 11/30/2024 05:26 AM 124.0 mg/dL Blood Sugar 11/29/2024 07:43 PM 237.0 mg/dL Blood Sugar 11/29/2024 04:00 PM 194.0 mg/dL Blood Sugar 11/29/2024 11:29 AM 205.0 mg/dL Blood Sugar 11/29/2024 04:59 AM 138.0 mg/dL Blood Sugar 11/28/2024 07:33 PM 295.0 mg/dL Blood Sugar 11/28/2024 04:07 PM 255.0 mg/dL Blood Sugar 11/28/2024 10:59 AM 208.0 mg/dL Blood Sugar 11/28/2024 03:23 AM 141.0 mg/dL Blood Sugar 11/27/2024 07:48 PM 250.0 mg/dL Blood Sugar 11/27/2024 05:03 PM 206.0 mg/dL Blood Sugar 11/27/2024 12:12 PM 234.0 mg/dL Blood Sugar 11/27/2024 06:52 AM 126.0 mg/dL Blood Sugar 11/26/2024 08:20 PM 248.0 mg/dL Blood Sugar 11/26/2024 04:43 PM 242.0 mg/dL Blood Sugar 11/26/2024 11:57 AM 184.0 mg/dL Blood Sugar 11/26/2024 06:27 AM 192.0 mg/dL Blood Sugar 11/25/2024 10:33 PM 263.0 mg/dL Blood Sugar 11/25/2024 05:12 PM 269.0 mg/dL Blood Sugar 11/25/2024 11:02 AM 194.0 mg/dL Blood Sugar 11/25/2024 06:33 AM 100.0 mg/dL Blood Sugar 11/24/2024 09:59 PM 227.0 mg/dL Blood Sugar 11/24/2024 04:20 PM 269.0 mg/dL Blood Sugar 11/24/2024 11:35 AM 194.0 mg/dL Blood Sugar 11/24/2024 05:41 AM 151.0 mg/dL Blood Sugar 11/23/2024 09:02 PM 221.0 mg/dL Blood Sugar 11/23/2024 03:55 PM 176.0 mg/dL Blood Sugar 11/23/2024 11:09 AM 164.0 mg/dL Blood Sugar 11/23/2024 04:59 AM 148.0 mg/dL Blood Sugar 11/22/2024 09:46 PM 233.0 mg/dL Blood Sugar 11/22/2024 04:15 PM 286.0 mg/dL Blood Sugar 11/22/2024 11:56 AM 190.0 mg/dL Blood Sugar 11/22/2024 05:14 AM 140.0 mg/dL Blood Sugar 11/21/2024 08:33 PM 224.0 mg/dL Blood Sugar 11/21/2024 05:14 PM 201.0 mg/dL Blood Sugar 11/21/2024 12:27 PM 181.0 mg/dL Blood Sugar 11/21/2024 04:26 AM 230.0 mg/dL Blood Sugar 11/20/2024 09:04 PM 233.0 mg/dL Blood Sugar 11/20/2024 05:12 PM 141.0 mg/dL Blood Sugar 11/20/2024 10:54 AM 250.0 mg/dL Blood Sugar 11/20/2024 05:13 AM 126.0 mg/dL Blood Sugar 11/19/2024 08:47 PM 228.0 mg/dL Blood Sugar 11/19/2024 04:54 PM 311.0 mg/dL Blood Sugar 11/19/2024 11:42 AM 191.0 mg/dL Blood Sugar 11/19/2024 04:31 AM 269.0 mg/dL Blood Sugar 11/18/2024 09:17 PM 353.0 mg/dL Blood Sugar 11/18/2024 05:17 PM 189.0 mg/dL Blood Sugar 11/18/2024 11:20 AM 156.0 mg/dL Blood Sugar 11/18/2024 05:54 AM 115.0 mg/dL Blood Sugar 11/17/2024 08:40 PM 216.0 mg/dL Blood Sugar 11/17/2024 04:37 PM 147.0 mg/dL Blood Sugar 11/17/2024 11:41 AM 194.0 mg/dL Blood Sugar 11/17/2024 07:39 AM 130.0 mg/dL Blood Sugar 11/16/2024 09:18 PM 377.0 mg/dL Blood Sugar 11/16/2024 05:03 PM 220.0 mg/dL Blood Sugar 11/16/2024 01:00 PM 212.0 mg/dL Blood Sugar 11/16/2024 06:46 AM 109.0 mg/dL Blood Sugar 11/15/2024 08:10 PM 259.0 mg/dL Blood Sugar 11/15/2024 04:18 PM 183.0 mg/dL Blood Sugar 11/15/2024 11:16 AM 171.0 mg/dL Blood Sugar 11/15/2024 07:19 AM 97.0 mg/dL Blood Sugar 11/14/2024 08:45 PM 291.0 mg/dL Blood Sugar 11/14/2024 04:28 PM 195.0 mg/dL Blood Sugar 11/14/2024 11:23 AM 241.0 mg/dL Blood Sugar 11/13/2024 09:23 PM 195.0 mg/dL Blood Sugar 11/13/2024 05:10 PM 410.0 mg/dL Blood Sugar 11/13/2024 12:48 PM 211.0 mg/dL Blood Sugar 11/13/2024 04:48 AM 138.0 mg/dL Blood Sugar 11/12/2024 07:54 PM 208.0 mg/dL Blood Sugar 11/12/2024 04:34 PM 169.0 mg/dL Blood Sugar 11/12/2024 12:45 PM 177.0 mg/dL Blood Sugar 11/12/2024 03:57 AM 102.0 mg/dL Blood Sugar 11/11/2024 08:42 PM 225.0 mg/dL Blood Sugar 11/11/2024 04:37 PM 191.0 mg/dL Blood Sugar 11/11/2024 04:23 AM 126.0 mg/dL Blood Sugar 11/10/2024 07:47 PM 202.0 mg/dL Blood Sugar 11/10/2024 04:07 PM 252.0 mg/dL Blood Sugar 11/10/2024 11:01 AM 157.0 mg/dL Blood Sugar 11/10/2024 03:30 AM 143.0 mg/dL Blood Sugar 11/09/2024 08:21 PM 189.0 mg/dL Blood Sugar 11/09/2024 03:55 PM 226.0 mg/dL Blood Sugar 11/09/2024 11:14 AM 197.0 mg/dL Blood Sugar 11/09/2024 04:52 AM 147.0 mg/dL Blood Sugar 11/08/2024 08:16 PM 209.0 mg/dL Blood Sugar 11/08/2024 05:08 PM 189.0 mg/dL Blood Sugar 11/08/2024 12:30 PM 164.0 mg/dL Blood Sugar 11/08/2024 06:16 AM 117.0 mg/dL Blood Sugar 11/07/2024 08:03 PM 189.0 mg/dL Blood Sugar 11/07/2024 04:52 PM 177.0 mg/dL Blood Sugar 11/07/2024 01:16 PM 164.0 mg/dL Blood Sugar 11/07/2024 04:33 AM 122.0 mg/dL Blood Sugar 11/06/2024 08:36 PM 210.0 mg/dL Blood Sugar 11/06/2024 04:36 PM 225.0 mg/dL Blood Sugar 11/06/2024 11:39 AM 177.0 mg/dL Blood Sugar 11/06/2024 03:51 AM 151.0 mg/dL Blood Sugar 11/05/2024 08:14 PM 202.0 mg/dL Blood Sugar 11/05/2024 04:00 PM 227.0 mg/dL Blood Sugar 11/05/2024 11:05 AM 177.0 mg/dL Blood Sugar 11/05/2024 03:45 AM 103.0 mg/dL Blood Sugar 11/04/2024 08:36 PM 261.0 mg/dL Blood Sugar 11/04/2024 04:22 PM 248.0 mg/dL Blood Sugar 11/04/2024 11:36 AM 249.0 mg/dL Blood Sugar 11/04/2024 05:32 AM 189.0 mg/dL Blood Sugar 11/03/2024 07:32 PM 225.0 mg/dL Blood Sugar 11/03/2024 04:57 PM 164.0 mg/dL Blood Sugar 11/03/2024 11:52 AM 186.0 mg/dL Blood Sugar 11/03/2024 06:08 AM 127.0 mg/dL Blood Sugar 11/02/2024 07:59 PM 168.0 mg/dL Blood Sugar 11/02/2024 05:03 PM 152.0 mg/dL Blood Sugar 11/02/2024 12:39 PM 140.0 mg/dL Blood Sugar 11/02/2024 04:21 AM 99.0 mg/dL Blood Sugar 11/01/2024 07:52 PM 209.0 mg/dL Blood Sugar 11/01/2024 04:16 PM 170.0 mg/dL Blood Sugar 11/01/2024 11:02 AM 177.0 mg/dL Blood Sugar 11/01/2024 04:16 AM 131.0 mg/dL Blood Sugar 10/31/2024 07:55 PM 190.0 mg/dL Blood Sugar 10/31/2024 04:00 PM 246.0 mg/dL Blood Sugar 10/31/2024 11:19 AM 152.0 mg/dL Blood Sugar 10/31/2024 05:30 AM 163.0 mg/dL Blood Sugar 10/30/2024 08:16 PM 204.0 mg/dL Blood Sugar 10/30/2024 04:58 PM 201.0 mg/dL Blood Sugar 10/30/2024 12:11 PM 132.0 mg/dL Blood Sugar 10/30/2024 05:39 AM 104.0 mg/dL Blood Sugar 10/29/2024 09:04 PM 219.0 mg/dL Blood Sugar 10/29/2024 05:31 PM 188.0 mg/dL Blood Sugar 10/29/2024 12:44 PM 189.0 mg/dL Blood Sugar 10/29/2024 03:38 AM 112.0 mg/dL Blood Sugar 2024 09:38 PM 200.0 mg/dL Blood Sugar 2024 05:08 PM 208.0 mg/dL Blood Sugar 2024 11:16 AM 146.0 mg/dL Blood Sugar 2024 04:10 AM 124.0 mg/dL Blood Sugar 10/27/2024 08:12 PM 233.0 mg/dL Blood Sugar 10/27/2024 03:59 PM 204.0 mg/dL Blood Sugar 10/27/2024 11:26 AM 162.0 mg/dL Blood Sugar 10/27/2024 03:27 AM 163.0 mg/dL Blood Sugar 10/26/2024 09:00 PM 193.0 mg/dL Blood Sugar 10/26/2024 05:05 PM 201.0 mg/dL Blood Sugar 10/26/2024 11:12 AM 168.0 mg/dL Blood Sugar 10/26/2024 04:13 AM 150.0 mg/dL Blood Sugar 10/25/2024 08:12 PM 228.0 mg/dL Blood Sugar 10/25/2024 04:43 PM 274.0 mg/dL Blood Sugar 10/25/2024 12:42 PM 138.0 mg/dL Blood Sugar 10/25/2024 04:29 AM 143.0 mg/dL Blood Sugar 10/24/2024 08:55 PM 199.0 mg/dL Blood Sugar 10/24/2024 05:21 PM 157.0 mg/dL Blood Sugar 10/24/2024 01:15 PM 189.0 mg/dL Blood Sugar 10/24/2024 04:14 AM 116.0 mg/dL Blood Sugar 10/23/2024 08:33 PM 189.0 mg/dL Blood Sugar 10/23/2024 04:00 PM 208.0 mg/dL Blood Sugar 10/23/2024 11:24 AM 162.0 mg/dL Blood Sugar 10/23/2024 05:02 AM 183.0 mg/dL Blood Sugar 10/22/2024 08:35 PM 235.0 mg/dL Blood Sugar 10/22/2024 04:12 PM 227.0 mg/dL Blood Sugar 10/22/2024 11:05 AM 205.0 mg/dL Blood Sugar 10/22/2024 05:04 AM 137.0 mg/dL Blood Sugar 10/21/2024 09:28 PM 237.0 mg/dL Blood Sugar 10/21/2024 05:17 PM 183.0 mg/dL Blood Sugar 10/21/2024 11:45 AM 181.0 mg/dL Blood Sugar 10/21/2024 05:11 AM 155.0 mg/dL Blood Sugar 10/20/2024 09:30 PM 259.0 mg/dL Blood Sugar 10/20/2024 05:21 PM 195.0 mg/dL Blood Sugar 10/20/2024 01:02 PM 228.0 mg/dL Blood Sugar 10/20/2024 04:18 AM 225.0 mg/dL Blood Sugar 10/19/2024 08:51 PM 237.0 mg/dL Blood Sugar 10/19/2024 05:31 PM 158.0 mg/dL Blood Sugar 10/19/2024 12:47 PM 208.0 mg/dL Blood Sugar 10/19/2024 04:38 AM 119.0 mg/dL Blood Sugar 10/18/2024 07:51 PM 210.0 mg/dL Blood Sugar 10/18/2024 04:16 PM 254.0 mg/dL Blood Sugar 10/18/2024 11:26 AM 145.0 mg/dL Blood Sugar 10/18/2024 05:06 AM 98.0 mg/dL Blood Sugar 10/17/2024 09:24 PM 208.0 mg/dL Blood Sugar 10/17/2024 04:14 PM 234.0 mg/dL Blood Sugar 10/17/2024 11:09 AM 179.0 mg/dL Blood Sugar 10/17/2024 04:14 AM 118.0 mg/dL Blood Sugar 10/16/2024 08:39 PM 228.0 mg/dL Blood Sugar 10/16/2024 05:54 PM 198.0 mg/dL Blood Sugar 10/16/2024 12:45 PM 167.0 mg/dL Blood Sugar 10/16/2024 04:15 AM 194.0 mg/dL Blood Sugar 10/15/2024 08:46 PM 148.0 mg/dL Blood Sugar 10/15/2024 05:15 PM 306.0 mg/dL Blood Sugar 10/15/2024 12:30 PM 122.0 mg/dL Blood Sugar 10/15/2024 04:48 AM 95.0 mg/dL Blood Sugar 10/14/2024 09:12 PM 241.0 mg/dL Blood Sugar 10/14/2024 04:59 PM 225.0 mg/dL Blood Sugar 10/14/2024 05:47 AM 109.0 mg/dL Blood Sugar 10/13/2024 08:14 PM 290.0 mg/dL Blood Sugar 10/13/2024 04:03 PM 240.0 mg/dL Blood Sugar 10/13/2024 11:19 AM 203.0 mg/dL Blood Sugar 10/13/2024 05:28 AM 115.0 mg/dL Blood Sugar 10/12/2024 08:07 PM 201.0 mg/dL Blood Sugar 10/12/2024 04:06 PM 188.0 mg/dL Blood Sugar 10/12/2024 11:22 AM 177.0 mg/dL Blood Sugar 10/12/2024 05:42 AM 111.0 mg/dL Blood Sugar 10/11/2024 08:33 PM 258.0 mg/dL Blood Sugar 10/11/2024 04:37 PM 167.0 mg/dL Blood Sugar 10/11/2024 11:19 AM 315.0 mg/dL Blood Sugar 10/11/2024 04:42 AM 158.0 mg/dL Blood Sugar 10/10/2024 08:38 PM 233.0 mg/dL Blood Sugar 10/10/2024 04:50 PM 268.0 mg/dL Blood Sugar 10/10/2024 12:02 PM 197.0 mg/dL Blood Sugar 10/10/2024 06:05 AM 123.0 mg/dL Blood Sugar 10/09/2024 08:41 PM 153.0 mg/dL Blood Sugar 10/09/2024 05:54 PM 203.0 mg/dL Blood Sugar 10/09/2024 11:05 AM 184.0 mg/dL Blood Sugar 10/09/2024 04:27 AM 223.0 mg/dL Blood Sugar 10/08/2024 08:11 PM 190.0 mg/dL Blood Sugar 10/08/2024 03:43 PM 245.0 mg/dL Blood Sugar 10/08/2024 11:27 AM 206.0 mg/dL Blood Sugar 10/08/2024 04:12 AM 189.0 mg/dL Blood Sugar 10/07/2024 09:29 PM 227.0 mg/dL Blood Sugar 10/07/2024 05:11 PM 201.0 mg/dL Blood Sugar 10/07/2024 11:21 AM 209.0 mg/dL Blood Sugar 10/07/2024 05:38 AM 108.0 mg/dL Blood Sugar 10/06/2024 09:56 PM 254.0 mg/dL Blood Sugar 10/06/2024 04:33 PM 236.0 mg/dL Blood Sugar 10/06/2024 11:22 AM 169.0 mg/dL Blood Sugar 10/06/2024 04:11 AM 112.0 mg/dL Blood Sugar 10/05/2024 09:00 PM 317.0 mg/dL Blood Sugar 10/05/2024 04:18 PM 226.0 mg/dL Blood Sugar 10/05/2024 11:56 AM 212.0 mg/dL Blood Sugar 10/05/2024 04:28 AM 131.0 mg/dL Blood Sugar 10/04/2024 08:31 PM 261.0 mg/dL Blood Sugar 10/04/2024 04:00 PM 173.0 mg/dL Blood Sugar 10/04/2024 11:26 AM 251.0 mg/dL Blood Sugar 10/04/2024 04:14 AM 139.0 mg/dL Blood Sugar 10/03/2024 10:42 PM 336.0 mg/dL Blood Sugar 10/03/2024 03:50 PM 199.0 mg/dL Blood Sugar 10/03/2024 10:58 AM 251.0 mg/dL Blood Sugar 10/03/2024 04:40 AM 205.0 mg/dL Blood Sugar 10/02/2024 08:00 PM 193.0 mg/dL Blood Sugar 10/02/2024 04:04 PM 173.0 mg/dL Blood Sugar 10/02/2024 11:05 AM 259.0 mg/dL Blood Sugar 10/02/2024 03:59 AM 146.0 mg/dL Blood Sugar 10/01/2024 07:45 PM 241.0 mg/dL Blood Sugar 10/01/2024 05:07 PM 202.0 mg/dL Blood Sugar 10/01/2024 12:39 PM 242.0 mg/dL Blood Sugar 10/01/2024 03:53 AM 398.0 mg/dL Blood Sugar 09/30/2024 08:58 PM 364.0 mg/dL Blood Sugar 09/30/2024 05:00 PM 234.0 mg/dL Blood Sugar 09/30/2024 10:29 AM 237.0 mg/dL Blood Sugar 09/30/2024 05:30 AM 180.0 mg/dL Blood Sugar 09/29/2024 09:52 PM 268.0 mg/dL Blood Sugar 09/29/2024 03:59 PM 229.0 mg/dL Blood Sugar 09/29/2024 11:21 AM 281.0 mg/dL Blood Sugar 09/29/2024 05:10 AM 93.0 mg/dL Blood Sugar 09/28/2024 08:02 PM 232.0 mg/dL Blood Sugar 09/28/2024 04:08 PM 179.0 mg/dL Blood Sugar 09/28/2024 11:10 AM 330.0 mg/dL Blood Sugar 09/28/2024 04:56 AM 388.0 mg/dL TB test 10/05/2024 Negative 0.0 mm Goals Goal Date Resident's code status decision will be honored daily through next review 01/05/2025 Resident needs will be met w ith staff assistance as needed. Res will improve in dressing and transfers 01/05/2025 The resident will be free from complicat ions related med 01/05/2025 Resident will have BM at least every 3 d ays until next review 01/05/2025 The resident will be free fr om s/s of complications of cardiac problems through the review date. 01/05/2025 Resident will be free from a dverse reactions from use of blood-thinning medication through review date 01/05/2025 The resident will have no co mplications related to diabetes through the review date 01/05/2025 Resident will have proper nu trition and hydration/ will be free of pain or bleeding in the oral cavity through next review 01/05/2025 Resident will not have an in terruption in normal activities d/t pain through the next review 01/05/2025 Resident will not exhibit signs of respi ratory distress 01/05/2025 The Resident will not have complications from altered respiratory status 01/05/2025 Resident will remain free from injury. 1 Resident's surgical wound wi ll heal without complications (infection, hemorrhage, dehiscence, evisceration, etc.). 01/05/2025 Resident's skin will remain free of furt her breakdown 01/05/2025 Resident will lose 15# through next revi ew 01/05/2025 1. Will be free of significa nt weight changes q month 5% +/- per nursing/grand rounds, weight reports 01/05/2025 2. Will be free of s/s dehyd ration, fluid overload, electrolyte imbalance through next review 01/05/2025 Resident will return to appropriate, saf e placement once stable 01/05/2025 Resident will participate in leave of absence ([facility]) with family/friends and follow facility [facility] rules through next review. 01/05/2025 Resident will maintain their highest level of cognition throughout disease process through next review 01/05/2025 -Resident will receive jose tance with toileting/ maintained comfortable, clean and dry/ free from skin breakdown 01/05/2025 Resident will report decreas ed upper GI symptoms and maintain nutritional intake. 01/05/2025 Resident will maintain psych osocial well being in alf setting AEB: resident will accept care daily, positive expressions, positive body language thru next review 01/05/2025 Resident will not exhibit si gns of activity intolerance (fatigue, shortness of breath, pallor or cyanosis, vertigo, weakness, etc.). 01/05/2025 The resident will voice sati sfaction with his/her self-initiated leisure pursuits through the next review 01/05/2025 Resident will not exhibit complications. 01/05/2025 Resident will not exhibit si gns of drug related: sedation, hypotension, or anticholinergic symptoms. 01/05/2025 Resident will see (printed m aterial, television, self-care items, faces, etc.)./Resident will not have unrecognized declines in visual impairment. 01/05/2025 Encounters Admission Date Discharge Date Description MRN Visit Count 09/25/2024 15:40 [facility] Admission [id number]
--- OUTSIDE RECORDS SUMMARY | 2025-01-05 15:50 | XMS_ITS | Patient Health Record ---
Author Organization 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 Name Role Phone Family, Health Services Primary Care Provider Un available Leilamookie Shaji Unavailable [phone] Reason For Referral No Information Medications Medication [...] Polyneuropathy due to type 2 diabetes mellitus (262101259) Type 2 diabetes mellitus with diabetic polyneuropathy (E11.42) Active confirmed Problem Type 2 diabetes mellitus with peripheral angiopathy (389871340) Type 2 diabetes mellitus with diabetic peripheral angiopathy without gangrene (E11.51) Active confirmed Problem Tinea unguium (109220120) Tinea unguium (B35.1) Active confirmed Plan Of Treatment No Information Insurance Providers Payer Name Payer Address Payer Phone Subscriber Number Group Number Insured Name Patient Relationship to Insured Coverage Start Date Coverage End Date [facility] [address] [place] [phone] [id number] Tomas Sherman Self - patient is the insured Medical (General) History Medical History History ICD Code diabetes abcesses Surgical History Surgery Date(Month/Year) abcess removal amp of 2nd toe Hospitalization History Reason Date(Month/Year) abscess and amp of 2nd toeleft 2017
--- OUTSIDE RECORDS SUMMARY | 2025-01-05 15:51 | XMS_ITS | Continuity of Care Document ---
Author Organization [facility] Address [address] [id number] Insurance Providers Payer Plan Claims Address Claims Phone Policy Number Group Number Relation Employer Guarantor Name Guarantor Guarantor Address Guarantor Phone Medic aid [id number] Self Tomas Sherman 1965 [address] [place] [address] [employer] [address], [place] [phone] Self Tomas Sherman 1965 [address] [facility] [place] [address] [employer] [address] [address], [place] [address] tel:[phone] Self Tomas Sherman 1965 [address] [place] [address] Problems Condition ICD9 code ICD10 code SNOMED code Start Date End Date S tatus Other acute osteomyelitis, right ankle and foot M86.171 09/23/2024 Active Methicillin resistant Staphylococcus aureus infection, unspecified site A49.02 09/23/2024 Active Infection following a procedure, other surgical site, subsequent encounter T81.49XD 09/23/2024 Active Morbid (severe) obesity due to excess calories E66.01 09/28/2024 Ac tive 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, 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 09/23/2024 Acti ve Type 2 diabetes mellitus with diabetic polyneuropathy E11.42 09/23/2024 Active Chronic obstructive pulmonary disease, unspecified J44.9 09/23/2024 Active Hyperlipidemia, unspecified E78.5 09/23/2024 Active Other asthma J45.998 09/23/2024 Active Anemia, unspecified D64.9 09/23/2024 A ctive Major depressive disorder, recurrent, unspecified F33.9 09/23/2024 Active Polyneuropathy, unspecified G62.9 09/23/2024 Active Essential (primary) hypertension I10 09/23/2024 Active Attention-deficit hyperactivity disorder, combined type F90.2 09/23/2024 Active Arteriovenous fistula, 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 09/23/2024 Active Primary insomnia F51.01 09/23/2024 Acti ve Gastro-esophageal reflux disease without esophagitis K21.9 09/23/2024 Active Unspecified osteoarthritis, unspecified site M19.90 09/23/2024 Active Muscle weakness (generalized) M62.81 09/27/2024 Active Dysphagia, oral phase R13.11 09/28/2024 Active Difficulty in walking, not elsewhere classified R26.2 09/27/2024 Active Cognitive communication deficit R41.841 09/28/2024 Active Limitation of activities due to disability Z73.6 09/26/2024 Active 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 Refere nce Range Blood chemistry[[id number]] Glucose [Mass/volume] in Serum or Plasma [2345-7] 01/05/2025 03:30 PM 209 mg/dL N Blood chemistry[[id number]] Glucose [Mass/volume] in Serum or Plasma [2345-7] 01/05/2025 10:26 AM 192 mg/dL N Blood chemistry[[id number]] Glucose [Mass/volume] in Serum or Plasma [2345-7] 01/04/2025 01:04 PM 218 mg/dL N Blood chemistry[[id number]] Glucose [Mass/volume] in Serum or Plasma [2345-7] 01/04/2025 08:32 AM 142 mg/dL N Blood chemistry[[id number]] Glucose [Mass/volume] in Serum or Plasma [2345-7] 01/04/2025 03:38 PM 104 mg/dL N Blood chemistry[[id number]] Glucose [Mass/volume] in Serum or Plasma [2345-7] 01/04/2025 10:34 AM 171 mg/dL N Blood chemistry[[id number]] Glucose [Mass/volume] in Serum or Plasma [2345-7] 01/03/2025 12:15 PM 151 mg/dL N Blood chemistry[[id number]] Glucose [Mass/volume] in Serum or Plasma [2345-7] 01/03/2025 07:56 AM 197 mg/dL N Blood chemistry[[id number]] Glucose [Mass/volume] in Serum or Plasma [2345-7] 01/03/2025 04:03 PM 173 mg/dL N Blood chemistry[[id number]] Glucose [Mass/volume] in Serum or Plasma [2345-7] 01/03/2025 10:25 AM 244 mg/dL N Blood chemistry[[id number]] Glucose [Mass/volume] in Serum or Plasma [2345-7] 01/02/2025 03:33 PM 236 mg/dL N Blood chemistry[[id number]] Glucose [Mass/volume] in Serum or Plasma [2345-7] 01/02/2025 08:13 AM 178 mg/dL N Blood chemistry[[id number]] Glucose [Mass/volume] in Serum or Plasma [2345-7] 01/02/2025 03:11 PM 226 mg/dL N Blood chemistry[[id number]] Glucose [Mass/volume] in Serum or Plasma [2345-7] 01/02/2025 09:10 AM 137 mg/dL N Blood chemistry[[id number]] Glucose [Mass/volume] in Serum or Plasma [2345-7] 01/01/2025 12:43 PM 196 mg/dL N Blood chemistry[[id number]] Glucose [Mass/volume] in Serum or Plasma [2345-7] 01/01/2025 08:29 AM 188 mg/dL N Blood chemistry[[id number]] Glucose [Mass/volume] in Serum or Plasma [2345-7] 01/01/2025 03:13 PM 210 mg/dL N Blood chemistry[[id number]] Glucose [Mass/volume] in Serum or Plasma [2345-7] 01/01/2025 11:35 AM 159 mg/dL N Blood chemistry[[id number]] Glucose [Mass/volume] in Serum or Plasma [2345-7] 12/31/2024 11:54 AM 129 mg/dL N Blood chemistry[[id number]] Glucose [Mass/volume] in Serum or Plasma [2345-7] 12/31/2024 08:13 AM 221 mg/dL N Blood chemistry[[id number]] Glucose [Mass/volume] in Serum or Plasma [2345-7] 12/31/2024 03:41 PM 182 mg/dL N Blood chemistry[[id number]] Glucose [Mass/volume] in Serum or Plasma [2345-7] 12/31/2024 10:23 AM 130 mg/dL N Blood chemistry[[id number]] Glucose [Mass/volume] in Serum or Plasma [2345-7] 12/30/2024 02:22 PM 219 mg/dL N Blood chemistry[[id number]] Glucose [Mass/volume] in Serum or Plasma [2345-7] 12/30/2024 09:28 AM 206 mg/dL N Blood chemistry[[id number]] Glucose [Mass/volume] in Serum or Plasma [2345-7] 12/30/2024 03:10 PM 200 mg/dL N Blood chemistry[[id number]] Glucose [Mass/volume] in Serum or Plasma [2345-7] 12/30/2024 11:08 AM 205 mg/dL N Blood chemistry[[id number]] Glucose [Mass/volume] in Serum or Plasma [2345-7] 12/30/2024 04:06 PM 441 mg/dL N Blood chemistry[[id number]] Glucose [Mass/volume] in Serum or Plasma [2345-7] 12/29/2024 08:27 AM 132 mg/dL N Blood chemistry[[id number]] Glucose [Mass/volume] in Serum or Plasma [2345-7] 12/29/2024 03:34 PM 184 mg/dL N Blood chemistry[[id number]] Glucose [Mass/volume] in Serum or Plasma [2345-7] 12/29/2024 10:13 AM 270 mg/dL N Blood chemistry[[id number]] Glucose [Mass/volume] in Serum or Plasma [2345-7] 12/28/2024 11:59 AM 361 mg/dL N Blood chemistry[[id number]] Glucose [Mass/volume] in Serum or Plasma [2345-7] 12/28/2024 05:24 AM 220 mg/dL N Blood chemistry[[id number]] Glucose [Mass/volume] in Serum or Plasma [2345-7] 12/28/2024 10:32 AM 124 mg/dL N Blood chemistry[[id number]] Glucose [Mass/volume] in Serum or Plasma [2345-7] 12/27/2024 03:02 PM 293 mg/dL N Blood chemistry[[id number]] Glucose [Mass/volume] in Serum or Plasma [2345-7] 12/27/2024 08:06 AM 346 mg/dL N Blood chemistry[[id number]] Glucose [Mass/volume] in Serum or Plasma [2345-7] 12/27/2024 03:19 PM 269 mg/dL N Blood chemistry[[id number]] Glucose [Mass/volume] in Serum or Plasma [2345-7] 12/27/2024 09:24 AM 132 mg/dL N Blood chemistry[[id number]] Glucose [Mass/volume] in Serum or Plasma [2345-7] 12/26/2024 01:47 PM 299 mg/dL N Blood chemistry[[id number]] Glucose [Mass/volume] in Serum or Plasma [2345-7] 12/26/2024 08:06 AM 299 mg/dL N Blood chemistry[[id number]] Glucose [Mass/volume] in Serum or Plasma [2345-7] 12/26/2024 03:11 PM 283 mg/dL N Blood chemistry[[id number]] Glucose [Mass/volume] in Serum or Plasma [2345-7] 12/26/2024 09:59 AM 107 mg/dL N Blood chemistry[[id number]] Glucose [Mass/volume] in Serum or Plasma [2345-7] 12/25/2024 01:44 PM 314 mg/dL N Blood chemistry[[id number]] Glucose [Mass/volume] in Serum or Plasma [2345-7] 12/25/2024 09:09 AM 246 mg/dL N Blood chemistry[[id number]] Glucose [Mass/volume] in Serum or Plasma [2345-7] 12/25/2024 04:22 PM 221 mg/dL N Blood chemistry[[id number]] Glucose [Mass/volume] in Serum or Plasma [2345-7] 12/25/2024 10:00 AM 152 mg/dL N Blood chemistry[[id number]] Glucose [Mass/volume] in Serum or Plasma [2345-7] 12/24/2024 11:51 AM 273 mg/dL N Blood chemistry[[id number]] Glucose [Mass/volume] in Serum or Plasma [2345-7] 12/24/2024 09:39 AM 266 mg/dL N Blood chemistry[[id number]] Glucose [Mass/volume] in Serum or Plasma [2345-7] 12/24/2024 04:13 PM 289 mg/dL N Blood chemistry[[id number]] Glucose [Mass/volume] in Serum or Plasma [2345-7] 12/24/2024 09:34 AM 148 mg/dL N Blood chemistry[[id number]] Glucose [Mass/volume] in Serum or Plasma [2345-7] 12/23/2024 11:19 AM 228 mg/dL N Blood chemistry[[id number]] Glucose [Mass/volume] in Serum or Plasma [2345-7] 12/23/2024 07:59 AM 203 mg/dL N Blood chemistry[[id number]] Glucose [Mass/volume] in Serum or Plasma [2345-7] 12/23/2024 03:37 PM 221 mg/dL N Blood chemistry[[id number]] Glucose [Mass/volume] in Serum or Plasma [2345-7] 12/23/2024 09:47 AM 100 mg/dL N Blood chemistry[[id number]] Glucose [Mass/volume] in Serum or Plasma [2345-7] 12/22/2024 12:59 PM 391 mg/dL N Blood chemistry[[id number]] Glucose [Mass/volume] in Serum or Plasma [2345-7] 12/22/2024 08:14 AM 202 mg/dL N Blood chemistry[[id number]] Glucose [Mass/volume] in Serum or Plasma [2345-7] 12/22/2024 03:06 PM 269 mg/dL N Blood chemistry[[id number]] Glucose [Mass/volume] in Serum or Plasma [2345-7] 12/22/2024 08:21 AM 185 mg/dL N Blood chemistry[[id number]] Glucose [Mass/volume] in Serum or Plasma [2345-7] 12/21/2024 12:14 PM 399 mg/dL N Blood chemistry[[id number]] Glucose [Mass/volume] in Serum or Plasma [2345-7] 12/21/2024 08:08 AM 163 mg/dL N Blood chemistry[[id number]] Glucose [Mass/volume] in Serum or Plasma [2345-7] 12/21/2024 03:13 PM 262 mg/dL N Blood chemistry[[id number]] Glucose [Mass/volume] in Serum or Plasma [2345-7] 12/21/2024 10:20 AM 166 mg/dL N Blood chemistry[[id number]] Glucose [Mass/volume] in Serum or Plasma [2345-7] 12/20/2024 11:34 AM 289 mg/dL N Blood chemistry[[id number]] Glucose [Mass/volume] in Serum or Plasma [2345-7] 12/20/2024 04:15 PM 176 mg/dL N Blood chemistry[[id number]] Glucose [Mass/volume] in Serum or Plasma [2345-7] 12/20/2024 10:34 AM 346 mg/dL N Blood chemistry[[id number]] Glucose [Mass/volume] in Serum or Plasma [2345-7] 12/19/2024 01:12 PM 479 mg/dL N Blood chemistry[[id number]] Glucose [Mass/volume] in Serum or Plasma [2345-7] 12/19/2024 09:23 AM 348 mg/dL N Blood chemistry[[id number]] Glucose [Mass/volume] in Serum or Plasma [2345-7] 12/19/2024 03:30 PM 316 mg/dL N Blood chemistry[[id number]] Glucose [Mass/volume] in Serum or Plasma [2345-7] 12/19/2024 08:00 AM 114 mg/dL N Blood chemistry[[id number]] Glucose [Mass/volume] in Serum or Plasma [2345-7] 12/18/2024 12:27 PM 279 mg/dL N Blood chemistry[[id number]] Glucose [Mass/volume] in Serum or Plasma [2345-7] 12/18/2024 08:33 AM 212 mg/dL N Blood chemistry[[id number]] Glucose [Mass/volume] in Serum or Plasma [2345-7] 12/18/2024 03:10 PM 333 mg/dL N Blood chemistry[[id number]] Glucose [Mass/volume] in Serum or Plasma [2345-7] 12/18/2024 10:39 AM 125 mg/dL N Blood chemistry[] Glucose [Mass/volume] in Serum or Plasma [2345-7] 12/17/2024 12:16 PM 307 mg/dL N Blood chemistry[[id number]] Glucose [Mass/volume] in Serum or Plasma [2345-7] 12/17/2024 03:15 PM 274 mg/dL N Blood chemistry[[id number]] Glucose [Mass/volume] in Serum or Plasma [2345-7] 12/17/2024 08:25 AM 290 mg/dL N Blood chemistry[[id number]] Glucose [Mass/volume] in Serum or Plasma [2345-7] 12/17/2024 07:58 AM 188 mg/dL N Blood chemistry[[id number]] Glucose [Mass/volume] in Serum or Plasma [2345-7] 12/16/2024 11:30 AM 226 mg/dL N Blood chemistry[[id number]] Glucose [Mass/volume] in Serum or Plasma [2345-7] 12/16/2024 07:49 AM 206 mg/dL N Blood chemistry[[id number]] Glucose [Mass/volume] in Serum or Plasma [2345-7] 12/16/2024 03:23 PM 363 mg/dL N Blood chemistry[[id number]] Glucose [Mass/volume] in Serum or Plasma [2345-7] 12/16/2024 06:08 AM 140 mg/dL N Blood chemistry[[id number]] Glucose [Mass/volume] in Serum or Plasma [2345-7] 12/15/2024 11:27 AM 333 mg/dL N Blood chemistry[[id number]] Glucose [Mass/volume] in Serum or Plasma [2345-7] 12/15/2024 09:21 AM 263 mg/dL N Blood chemistry[[id number]] Glucose [Mass/volume] in Serum or Plasma [2345-7] 12/15/2024 04:09 PM 216 mg/dL N Blood chemistry[[id number]] Glucose [Mass/volume] in Serum or Plasma [2345-7] 12/15/2024 09:20 AM 215 mg/dL N Blood chemistry[[id number]] Glucose [Mass/volume] in Serum or Plasma [2345-7] 12/14/2024 01:35 PM 129 mg/dL N Blood chemistry[[id number]] Glucose [Mass/volume] in Serum or Plasma [2345-7] 12/14/2024 08:49 AM 418 mg/dL N Blood chemistry[[id number]] Glucose [Mass/volume] in Serum or Plasma [2345-7] 12/14/2024 09:39 AM 135 mg/dL N Blood chemistry[[id number]] Glucose [Mass/volume] in Serum or Plasma [2345-7] 12/13/2024 01:32 PM 285 mg/dL N Blood chemistry[[id number]] Glucose [Mass/volume] in Serum or Plasma [2345-7] 12/13/2024 08:19 AM 252 mg/dL N Blood chemistry[[id number]] Glucose [Mass/volume] in Serum or Plasma [2345-7] 12/13/2024 03:25 PM 234 mg/dL N Blood chemistry[[id number]] Glucose [Mass/volume] in Serum or Plasma [2345-7] 12/13/2024 09:41 AM 144 mg/dL N Blood chemistry[[id number]] Glucose [Mass/volume] in Serum or Plasma [2345-7] 12/12/2024 12:25 PM 297 mg/dL N Blood chemistry[[id number]] Glucose [Mass/volume] in Serum or Plasma [2345-7] 12/12/2024 08:09 AM 267 mg/dL N Blood chemistry[[id number]] Glucose [Mass/volume] in Serum or Plasma [2345-7] 12/12/2024 03:11 PM 188 mg/dL N Blood chemistry[[id number]] Glucose [Mass/volume] in Serum or Plasma [2345-7] 12/12/2024 09:09 AM 297 mg/dL N Blood chemistry[[id number]] Glucose [Mass/volume] in Serum or Plasma [2345-7] 12/11/2024 12:15 PM 292 mg/dL N Blood chemistry[[id number]] Glucose [Mass/volume] in Serum or Plasma [2345-7] 12/11/2024 09:27 AM 220 mg/dL N Blood chemistry[[id number]] Glucose [Mass/volume] in Serum or Plasma [2345-7] 12/11/2024 05:02 AM 187 mg/dL N Blood chemistry[[id number]] Glucose [Mass/volume] in Serum or Plasma [2345-7] 12/11/2024 09:49 AM 141 mg/dL N Blood chemistry[[id number]] Glucose [Mass/volume] in Serum or Plasma [2345-7] 12/10/2024 11:58 AM 221 mg/dL N Blood chemistry[[id number]] Glucose [Mass/volume] in Serum or Plasma [2345-7] 12/10/2024 09:35 AM 209 mg/dL N Blood chemistry[[id number]] Glucose [Mass/volume] in Serum or Plasma [2345-7] 12/10/2024 04:35 PM 245 mg/dL N Blood chemistry[[id number]] Glucose [Mass/volume] in Serum or Plasma [2345-7] 12/10/2024 11:36 AM 130 mg/dL N Blood chemistry[[id number]] Glucose [Mass/volume] in Serum or Plasma [2345-7] 12/09/2024 01:12 PM 334 mg/dL N Blood chemistry[[id number]] Glucose [Mass/volume] in Serum or Plasma [2345-7] 12/09/2024 02:47 PM 194 mg/dL N Blood chemistry[[id number]] Glucose [Mass/volume] in Serum or Plasma [2345-7] 12/09/2024 08:08 AM 223 mg/dL N Blood chemistry[[id number]] Glucose [Mass/volume] in Serum or Plasma [2345-7] 12/09/2024 10:25 AM 152 mg/dL N Blood chemistry[[id number]] Glucose [Mass/volume] in Serum or Plasma [2345-7] 12/08/2024 12:38 PM 244 mg/dL N Blood chemistry[[id number]] Glucose [Mass/volume] in Serum or Plasma [2345-7] 12/08/2024 08:38 AM 266 mg/dL N Blood chemistry[[id number]] Glucose [Mass/volume] in Serum or Plasma [2345-7] 12/08/2024 03:02 PM 257 mg/dL N Blood chemistry[[id number]] Glucose [Mass/volume] in Serum or Plasma [2345-7] 12/08/2024 10:04 AM 107 mg/dL N Blood chemistry[[id number]] Glucose [Mass/volume] in Serum or Plasma [2345-7] 12/07/2024 01:29 PM 245 mg/dL N Blood chemistry[[id number]] Glucose [Mass/volume] in Serum or Plasma [2345-7] 12/07/2024 07:54 AM 285 mg/dL N Blood chemistry[[id number]] Glucose [Mass/volume] in Serum or Plasma [2345-7] 12/07/2024 03:01 PM 223 mg/dL N Blood chemistry[[id number]] Glucose [Mass/volume] in Serum or Plasma [2345-7] 12/07/2024 10:28 AM 207 mg/dL N Blood chemistry[[id number]] Glucose [Mass/volume] in Serum or Plasma [2345-7] 12/06/2024 11:45 AM 399 mg/dL N Blood chemistry[[id number]] Glucose [Mass/volume] in Serum or Plasma [2345-7] 12/06/2024 08:29 AM 275 mg/dL N Blood chemistry[[id number]] Glucose [Mass/volume] in Serum or Plasma [2345-7] 12/06/2024 04:16 PM 263 mg/dL N Blood chemistry[[id number]] Glucose [Mass/volume] in Serum or Plasma [2345-7] 12/06/2024 09:15 AM 157 mg/dL N Blood chemistry[[id number]] Glucose [Mass/volume] in Serum or Plasma [2345-7] 12/06/2024 04:29 PM 398 mg/dL N Blood chemistry[[id number]] Glucose [Mass/volume] in Serum or Plasma [2345-7] 12/05/2024 08:45 AM 328 mg/dL N Blood chemistry[[id number]] Glucose [Mass/volume] in Serum or Plasma [2345-7] 12/05/2024 04:49 PM 242 mg/dL N Blood chemistry[[id number]] Glucose [Mass/volume] in Serum or Plasma [2345-7] 12/05/2024 09:25 AM 105 mg/dL N Blood chemistry[[id number]] Glucose [Mass/volume] in Serum or Plasma [2345-7] 12/04/2024 12:33 PM 334 mg/dL N Blood chemistry[[id number]] Glucose [Mass/volume] in Serum or Plasma [2345-7] 12/04/2024 07:58 AM 234 mg/dL N Blood chemistry[[id number]] Glucose [Mass/volume] in Serum or Plasma [2345-7] 12/04/2024 03:50 PM 220 mg/dL N Blood chemistry[[id number]] Glucose [Mass/volume] in Serum or Plasma [2345-7] 12/04/2024 10:17 AM 130 mg/dL N Blood chemistry[[id number]] Glucose [Mass/volume] in Serum or Plasma [2345-7] 12/03/2024 03:25 PM 193 mg/dL N Blood chemistry[[id number]] Glucose [Mass/volume] in Serum or Plasma [2345-7] 12/03/2024 12:08 PM 253 mg/dL N Blood chemistry[[id number]] Glucose [Mass/volume] in Serum or Plasma [2345-7] 12/03/2024 08:24 AM 270 mg/dL N Blood chemistry[[id number]] Glucose [Mass/volume] in Serum or Plasma [2345-7] 12/03/2024 08:07 AM 217 mg/dL N Blood chemistry[[id number]] Glucose [Mass/volume] in Serum or Plasma [2345-7] 12/02/2024 03:41 PM 241 mg/dL N Blood chemistry[[id number]] Glucose [Mass/volume] in Serum or Plasma [2345-7] 12/02/2024 01:52 PM 276 mg/dL N Blood chemistry[[id number]] Glucose [Mass/volume] in Serum or Plasma [2345-7] 12/02/2024 10:08 AM 155 mg/dL N Blood chemistry[[id number]] Glucose [Mass/volume] in Serum or Plasma [2345-7] 12/02/2024 08:17 AM 230 mg/dL N Blood chemistry[[id number]] Glucose [Mass/volume] in Serum or Plasma [2345-7] 12/01/2024 04:20 PM 152 mg/dL N Blood chemistry[[id number]] Glucose [Mass/volume] in Serum or Plasma [2345-7] 12/01/2024 01:11 PM 325 mg/dL N Blood chemistry[[id number]] Glucose [Mass/volume] in Serum or Plasma [2345-7] 12/01/2024 09:49 AM 146 mg/dL N Blood chemistry[[id number]] Glucose [Mass/volume] in Serum or Plasma [2345-7] 12/01/2024 08:55 AM 201 mg/dL N Blood chemistry[[id number]] Glucose [Mass/volume] in Serum or Plasma [2345-7] 11/30/2024 04:43 PM 186 mg/dL N Blood chemistry[[id number]] Glucose [Mass/volume] in Serum or Plasma [2345-7] 11/30/2024 10:55 AM 302 mg/dL N Blood chemistry[[id number]] Glucose [Mass/volume] in Serum or Plasma [2345-7] 11/30/2024 09:26 AM 124 mg/dL N Blood chemistry[[id number]] Glucose [Mass/volume] in Serum or Plasma [2345-7] 11/30/2024 07:35 AM 224 mg/dL N Blood chemistry[[id number]] Glucose [Mass/volume] in Serum or Plasma [2345-7] 11/29/2024 03:29 PM 205 mg/dL N Blood chemistry[[id number]] Glucose [Mass/volume] in Serum or Plasma [2345-7] 11/29/2024 11:43 AM 237 mg/dL N Blood chemistry[[id number]] Glucose [Mass/volume] in Serum or Plasma [2345-7] 11/29/2024 08:59 AM 138 mg/dL N Blood chemistry[[id number]] Glucose [Mass/volume] in Serum or Plasma [2345-7] 11/29/2024 08:00 AM 194 mg/dL N Blood chemistry[[id number]] Glucose [Mass/volume] in Serum or Plasma [2345-7] 11/28/2024 02:59 PM 208 mg/dL N Blood chemistry[[id number]] Glucose [Mass/volume] in Serum or Plasma [2345-7] 11/28/2024 11:33 AM 295 mg/dL N Blood chemistry[[id number]] Glucose [Mass/volume] in Serum or Plasma [2345-7] 11/28/2024 08:07 AM 255 mg/dL N Blood chemistry[[id number]] Glucose [Mass/volume] in Serum or Plasma [2345-7] 11/28/2024 07:23 AM 141 mg/dL N Blood chemistry[[id number]] Glucose [Mass/volume] in Serum or Plasma [2345-7] 11/27/2024 04:12 PM 234 mg/dL N Blood chemistry[[id number]] Glucose [Mass/volume] in Serum or Plasma [2345-7] 11/27/2024 11:48 AM 250 mg/dL N Blood chemistry[[id number]] Glucose [Mass/volume] in Serum or Plasma [2345-7] 11/27/2024 10:52 AM 126 mg/dL N Blood chemistry[[id number]] Glucose [Mass/volume] in Serum or Plasma [2345-7] 11/27/2024 09:03 AM 206 mg/dL N Blood chemistry[[id number]] Glucose [Mass/volume] in Serum or Plasma [2345-7] 11/26/2024 03:57 PM 184 mg/dL N Blood chemistry[[id number]] Glucose [Mass/volume] in Serum or Plasma [2345-7] 11/26/2024 12:20 PM 248 mg/dL N Blood chemistry[[id number]] Glucose [Mass/volume] in Serum or Plasma [2345-7] 11/26/2024 10:27 AM 192 mg/dL N Blood chemistry[[id number]] Glucose [Mass/volume] in Serum or Plasma [2345-7] 11/26/2024 08:43 AM 242 mg/dL N Blood chemistry[[id number]] Glucose [Mass/volume] in Serum or Plasma [2345-7] 11/25/2024 03:02 PM 194 mg/dL N Blood chemistry[[id number]] Glucose [Mass/volume] in Serum or Plasma [2345-7] 11/25/2024 02:33 PM 263 mg/dL N Blood chemistry[[id number]] Glucose [Mass/volume] in Serum or Plasma [2345-7] 11/25/2024 10:33 AM 100 mg/dL N Blood chemistry[[id number]] Glucose [Mass/volume] in Serum or Plasma [2345-7] 11/25/2024 09:12 AM 269 mg/dL N Blood chemistry[[id number]] Glucose [Mass/volume] in Serum or Plasma [2345-7] 11/24/2024 03:35 PM 194 mg/dL N Blood chemistry[[id number]] Glucose [Mass/volume] in Serum or Plasma [2345-7] 11/24/2024 01:59 PM 227 mg/dL N Blood chemistry[[id number]] Glucose [Mass/volume] in Serum or Plasma [2345-7] 11/24/2024 09:41 AM 151 mg/dL N Blood chemistry[[id number]] Glucose [Mass/volume] in Serum or Plasma [2345-7] 11/24/2024 08:20 AM 269 mg/dL N Blood chemistry[[id number]] Glucose [Mass/volume] in Serum or Plasma [2345-7] 11/23/2024 03:09 PM 164 mg/dL N Blood chemistry[[id number]] Glucose [Mass/volume] in Serum or Plasma [2345-7] 11/23/2024 01:02 PM 221 mg/dL N Blood chemistry[[id number]] Glucose [Mass/volume] in Serum or Plasma [2345-7] 11/23/2024 08:59 AM 148 mg/dL N Blood chemistry[[id number]] Glucose [Mass/volume] in Serum or Plasma [2345-7] 11/23/2024 07:55 AM 176 mg/dL N Blood chemistry[[id number]] Glucose [Mass/volume] in Serum or Plasma [2345-7] 11/22/2024 03:56 PM 190 mg/dL N Blood chemistry[[id number]] Glucose [Mass/volume] in Serum or Plasma [2345-7] 11/22/2024 01:46 PM 233 mg/dL N Blood chemistry[[id number]] Glucose [Mass/volume] in Serum or Plasma [2345-7] 11/22/2024 09:14 AM 140 mg/dL N Blood chemistry[[id number]] Glucose [Mass/volume] in Serum or Plasma [2345-7] 11/22/2024 08:15 AM 286 mg/dL N Blood chemistry[[id number]] Glucose [Mass/volume] in Serum or Plasma [2345-7] 11/21/2024 04:27 PM 181 mg/dL N Blood chemistry[[id number]] Glucose [Mass/volume] in Serum or Plasma [2345-7] 11/21/2024 12:33 PM 224 mg/dL N Blood chemistry[[id number]] Glucose [Mass/volume] in Serum or Plasma [2345-7] 11/21/2024 09:14 AM 201 mg/dL N Blood chemistry[[id number]] Glucose [Mass/volume] in Serum or Plasma [2345-7] 11/21/2024 08:26 AM 230 mg/dL N Blood chemistry[[id number]] Glucose [Mass/volume] in Serum or Plasma [2345-7] 11/20/2024 02:54 PM 250 mg/dL N Blood chemistry[[id number]] Glucose [Mass/volume] in Serum or Plasma [2345-7] 11/20/2024 01:04 PM 233 mg/dL N Blood chemistry[[id number]] Glucose [Mass/volume] in Serum or Plasma [2345-7] 11/20/2024 09:13 AM 126 mg/dL N Blood chemistry[[id number]] Glucose [Mass/volume] in Serum or Plasma [2345-7] 11/20/2024 09:12 AM 141 mg/dL N Blood chemistry[[id number]] Glucose [Mass/volume] in Serum or Plasma [2345-7] 11/19/2024 03:42 PM 191 mg/dL N Blood chemistry[[id number]] Glucose [Mass/volume] in Serum or Plasma [2345-7] 11/19/2024 12:47 PM 228 mg/dL N Blood chemistry[[id number]] Glucose [Mass/volume] in Serum or Plasma [2345-7] 11/19/2024 08:54 AM 311 mg/dL N Blood chemistry[[id number]] Glucose [Mass/volume] in Serum or Plasma [2345-7] 11/19/2024 08:31 AM 269 mg/dL N Blood chemistry[[id number]] Glucose [Mass/volume] in Serum or Plasma [2345-7] 11/18/2024 03:20 PM 156 mg/dL N Blood chemistry[[id number]] Glucose [Mass/volume] in Serum or Plasma [2345-7] 11/18/2024 01:17 PM 353 mg/dL N Blood chemistry[[id number]] Glucose [Mass/volume] in Serum or Plasma [2345-7] 11/18/2024 09:54 AM 115 mg/dL N Blood chemistry[[id number]] Glucose [Mass/volume] in Serum or Plasma [2345-7] 11/18/2024 09:17 AM 189 mg/dL N Blood chemistry[[id number]] Glucose [Mass/volume] in Serum or Plasma [2345-7] 11/17/2024 03:41 PM 194 mg/dL N Blood chemistry[[id number]] Glucose [Mass/volume] in Serum or Plasma [2345-7] 11/17/2024 12:40 PM 216 mg/dL N Blood chemistry[[id number]] Glucose [Mass/volume] in Serum or Plasma [2345-7] 11/17/2024 11:39 AM 130 mg/dL N Blood chemistry[[id number]] Glucose [Mass/volume] in Serum or Plasma [2345-7] 11/17/2024 08:37 AM 147 mg/dL N Blood chemistry[[id number]] Glucose [Mass/volume] in Serum or Plasma [2345-7] 11/16/2024 01:18 PM 377 mg/dL N Blood chemistry[[id number]] Glucose [Mass/volume] in Serum or Plasma [2345-7] 11/16/2024 10:46 AM 109 mg/dL N Blood chemistry[[id number]] Glucose [Mass/volume] in Serum or Plasma [2345-7] 11/16/2024 09:03 AM 220 mg/dL N Blood chemistry[[id number]] Glucose [Mass/volume] in Serum or Plasma [2345-7] 11/16/2024 05:00 AM 212 mg/dL N Blood chemistry[[id number]] Glucose [Mass/volume] in Serum or Plasma [2345-7] 11/15/2024 03:16 PM 171 mg/dL N Blood chemistry[[id number]] Glucose [Mass/volume] in Serum or Plasma [2345-7] 11/15/2024 12:10 PM 259 mg/dL N Blood chemistry[[id number]] Glucose [Mass/volume] in Serum or Plasma [2345-7] 11/15/2024 11:19 AM 97 mg/dL N Blood chemistry[[id number]] Glucose [Mass/volume] in Serum or Plasma [2345-7] 11/15/2024 08:18 AM 183 mg/dL N Blood chemistry[[id number]] Glucose [Mass/volume] in Serum or Plasma [2345-7] 11/14/2024 03:23 PM 241 mg/dL N Blood chemistry[[id number]] Glucose [Mass/volume] in Serum or Plasma [2345-7] 11/14/2024 12:45 PM 291 mg/dL N Blood chemistry[[id number]] Glucose [Mass/volume] in Serum or Plasma [2345-7] 11/14/2024 08:28 AM 195 mg/dL N Blood chemistry[[id number]] Glucose [Mass/volume] in Serum or Plasma [2345-7] 11/13/2024 04:48 PM 211 mg/dL N Blood chemistry[[id number]] Glucose [Mass/volume] in Serum or Plasma [2345-7] 11/13/2024 01:23 PM 195 mg/dL N Blood chemistry[[id number]] Glucose [Mass/volume] in Serum or Plasma [2345-7] 11/13/2024 09:10 AM 410 mg/dL N Blood chemistry[[id number]] Glucose [Mass/volume] in Serum or Plasma [2345-7] 11/13/2024 08:48 AM 138 mg/dL N Blood chemistry[[id number]] Glucose [Mass/volume] in Serum or Plasma [2345-7] 11/12/2024 04:45 PM 177 mg/dL N Blood chemistry[[id number]] Glucose [Mass/volume] in Serum or Plasma [2345-7] 11/12/2024 11:54 AM 208 mg/dL N Blood chemistry[[id number]] Glucose [Mass/volume] in Serum or Plasma [2345-7] 11/12/2024 08:34 AM 169 mg/dL N Blood chemistry[[id number]] Glucose [Mass/volume] in Serum or Plasma [2345-7] 11/12/2024 07:57 AM 102 mg/dL N Blood chemistry[[id number]] Glucose [Mass/volume] in Serum or Plasma [2345-7] 11/11/2024 12:42 PM 225 mg/dL N Blood chemistry[[id number]] Glucose [Mass/volume] in Serum or Plasma [2345-7] 11/11/2024 08:37 AM 191 mg/dL N Blood chemistry[[id number]] Glucose [Mass/volume] in Serum or Plasma [2345-7] 11/11/2024 08:23 AM 126 mg/dL N Blood chemistry[[id number]] Glucose [Mass/volume] in Serum or Plasma [2345-7] 11/10/2024 03:01 PM 157 mg/dL N Blood chemistry[[id number]] Glucose [Mass/volume] in Serum or Plasma [2345-7] 11/10/2024 11:47 AM 202 mg/dL N Blood chemistry[[id number]] Glucose [Mass/volume] in Serum or Plasma [2345-7] 11/10/2024 08:07 AM 252 mg/dL N Blood chemistry[[id number]] Glucose [Mass/volume] in Serum or Plasma [2345-7] 11/10/2024 07:30 AM 143 mg/dL N Blood chemistry[[id number]] Glucose [Mass/volume] in Serum or Plasma [2345-7] 11/09/2024 03:14 PM 197 mg/dL N Blood chemistry[[id number]] Glucose [Mass/volume] in Serum or Plasma [2345-7] 11/09/2024 12:21 PM 189 mg/dL N Blood chemistry[[id number]] Glucose [Mass/volume] in Serum or Plasma [2345-7] 11/09/2024 08:52 AM 147 mg/dL N Blood chemistry[[id number]] Glucose [Mass/volume] in Serum or Plasma [2345-7] 11/09/2024 07:55 AM 226 mg/dL N Blood chemistry[[id number]] Glucose [Mass/volume] in Serum or Plasma [2345-7] 11/08/2024 04:30 PM 164 mg/dL N Blood chemistry[[id number]] Glucose [Mass/volume] in Serum or Plasma [2345-7] 11/08/2024 12:16 PM 209 mg/dL N Blood chemistry[[id number]] Glucose [Mass/volume] in Serum or Plasma [2345-7] 11/08/2024 10:16 AM 117 mg/dL N Blood chemistry[[id number]] Glucose [Mass/volume] in Serum or Plasma [2345-7] 11/08/2024 09:08 AM 189 mg/dL N Blood chemistry[[id number]] Glucose [Mass/volume] in Serum or Plasma [2345-7] 11/07/2024 12:03 PM 189 mg/dL N Blood chemistry[[id number]] Glucose [Mass/volume] in Serum or Plasma [2345-7] 11/07/2024 08:52 AM 177 mg/dL N Blood chemistry[[id number]] Glucose [Mass/volume] in Serum or Plasma [2345-7] 11/07/2024 08:33 AM 122 mg/dL N Blood chemistry[[id number]] Glucose [Mass/volume] in Serum or Plasma [2345-7] 11/07/2024 05:16 AM 164 mg/dL N Blood chemistry[[id number]] Glucose [Mass/volume] in Serum or Plasma [2345-7] 11/06/2024 03:39 PM 177 mg/dL N Blood chemistry[[id number]] Glucose [Mass/volume] in Serum or Plasma [2345-7] 11/06/2024 12:36 PM 210 mg/dL N Blood chemistry[[id number]] Glucose [Mass/volume] in Serum or Plasma [2345-7] 11/06/2024 08:36 AM 225 mg/dL N Blood chemistry[[id number]] Glucose [Mass/volume] in Serum or Plasma [2345-7] 11/06/2024 07:51 AM 151 mg/dL N Blood chemistry[[id number]] Glucose [Mass/volume] in Serum or Plasma [2345-7] 11/05/2024 03:05 PM 177 mg/dL N Blood chemistry[[id number]] Glucose [Mass/volume] in Serum or Plasma [2345-7] 11/05/2024 12:14 PM 202 mg/dL N Blood chemistry[[id number]] Glucose [Mass/volume] in Serum or Plasma [2345-7] 11/05/2024 08:00 AM 227 mg/dL N Blood chemistry[[id number]] Glucose [Mass/volume] in Serum or Plasma [2345-7] 11/05/2024 07:45 AM 103 mg/dL N Blood chemistry[[id number]] Glucose [Mass/volume] in Serum or Plasma [2345-7] 11/04/2024 03:36 PM 249 mg/dL N Blood chemistry[[id number]] Glucose [Mass/volume] in Serum or Plasma [2345-7] 11/04/2024 12:36 PM 261 mg/dL N Blood chemistry[[id number]] Glucose [Mass/volume] in Serum or Plasma [2345-7] 11/04/2024 09:32 AM 189 mg/dL N Blood chemistry[[id number]] Glucose [Mass/volume] in Serum or Plasma [2345-7] 11/04/2024 08:22 AM 248 mg/dL N Blood chemistry[[id number]] Glucose [Mass/volume] in Serum or Plasma [2345-7] 11/03/2024 03:52 PM 186 mg/dL N Blood chemistry[[id number]] Glucose [Mass/volume] in Serum or Plasma [2345-7] 11/03/2024 11:32 AM 225 mg/dL N Blood chemistry[[id number]] Glucose [Mass/volume] in Serum or Plasma [2345-7] 11/03/2024 10:08 AM 127 mg/dL N Blood chemistry[[id number]] Glucose [Mass/volume] in Serum or Plasma [2345-7] 11/03/2024 08:57 AM 164 mg/dL N Blood chemistry[[id number]] Glucose [Mass/volume] in Serum or Plasma [2345-7] 11/02/2024 04:39 PM 140 mg/dL N Blood chemistry[[id number]] Glucose [Mass/volume] in Serum or Plasma [2345-7] 11/02/2024 11:59 AM 168 mg/dL N Blood chemistry[[id number]] Glucose [Mass/volume] in Serum or Plasma [2345-7] 11/02/2024 09:03 AM 152 mg/dL N Blood chemistry[[id number]] Glucose [Mass/volume] in Serum or Plasma [2345-7] 11/02/2024 08:21 AM 99 mg/dL N Blood chemistry[[id number]] Glucose [Mass/volume] in Serum or Plasma [2345-7] 11/01/2024 03:02 PM 177 mg/dL N Blood chemistry[[id number]] Glucose [Mass/volume] in Serum or Plasma [2345-7] 11/01/2024 11:52 AM 209 mg/dL N Blood chemistry[[id number]] Glucose [Mass/volume] in Serum or Plasma [2345-7] 11/01/2024 08:16 AM 170 mg/dL N Glucose [Mass/volume] in Serum or Plasma [2345-7] 11/01/2024 08:16 AM 131 mg/dL N Blood chemistry[[id number]] Glucose [Mass/volume] in Serum or Plasma [2345-7] 10/31/2024 03:19 PM 152 mg/dL N Blood chemistry[[id number]] Glucose [Mass/volume] in Serum or Plasma [2345-7] 10/31/2024 11:55 AM 190 mg/dL N Blood chemistry[[id number]] Glucose [Mass/volume] in Serum or Plasma [2345-7] 10/31/2024 09:30 AM 163 mg/dL N Blood chemistry[[id number]] Glucose [Mass/volume] in Serum or Plasma [2345-7] 10/31/2024 08:00 AM 246 mg/dL N Blood chemistry[[id number]] Glucose [Mass/volume] in Serum or Plasma [2345-7] 10/30/2024 04:11 PM 132 mg/dL N Blood chemistry[[id number]] Glucose [Mass/volume] in Serum or Plasma [2345-7] 10/30/2024 12:16 PM 204 mg/dL N Blood chemistry[[id number]] Glucose [Mass/volume] in Serum or Plasma [2345-7] 10/30/2024 09:39 AM 104 mg/dL N Blood chemistry[[id number]] Glucose [Mass/volume] in Serum or Plasma [2345-7] 10/30/2024 08:58 AM 201 mg/dL N Blood chemistry[[id number]] Glucose [Mass/volume] in Serum or Plasma [2345-7] 10/29/2024 04:44 PM 189 mg/dL N Blood chemistry[[id number]] Glucose [Mass/volume] in Serum or Plasma [2345-7] 10/29/2024 01:04 PM 219 mg/dL N Blood chemistry[[id number]] Glucose [Mass/volume] in Serum or Plasma [2345-7] 10/29/2024 09:31 AM 188 mg/dL N Blood chemistry[[id number]] Glucose [Mass/volume] in Serum or Plasma [2345-7] 10/29/2024 07:38 AM 112 mg/dL N Blood chemistry[[id number]] Glucose [Mass/volume] in Serum or Plasma [2345-7] 2024 03:16 PM 146 mg/dL N Blood chemistry[[id number]] Glucose [Mass/volume] in Serum or Plasma [2345-7] 2024 01:38 PM 200 mg/dL N Blood chemistry[[id number]] Glucose [Mass/volume] in Serum or Plasma [2345-7] 2024 09:08 AM 208 mg/dL N Blood chemistry[[id number]] Glucose [Mass/volume] in Serum or Plasma [2345-7] 2024 08:10 AM 124 mg/dL N Blood chemistry[[id number]] Glucose [Mass/volume] in Serum or Plasma [2345-7] 10/27/2024 03:26 PM 162 mg/dL N Blood chemistry[[id number]] Glucose [Mass/volume] in Serum or Plasma [2345-7] 10/27/2024 12:12 PM 233 mg/dL N Blood chemistry[[id number]] Glucose [Mass/volume] in Serum or Plasma [2345-7] 10/27/2024 07:59 AM 204 mg/dL N Blood chemistry[[id number]] Glucose [Mass/volume] in Serum or Plasma [2345-7] 10/27/2024 07:27 AM 163 mg/dL N Blood chemistry[[id number]] Glucose [Mass/volume] in Serum or Plasma [2345-7] 10/26/2024 03:12 PM 168 mg/dL N Blood chemistry[[id number]] Glucose [Mass/volume] in Serum or Plasma [2345-7] 10/26/2024 01:00 PM 193 mg/dL N Blood chemistry[[id number]] Glucose [Mass/volume] in Serum or Plasma [2345-7] 10/26/2024 09:05 AM 201 mg/dL N Blood chemistry[[id number]] Glucose [Mass/volume] in Serum or Plasma [2345-7] 10/26/2024 08:13 AM 150 mg/dL N Blood chemistry[[id number]] Glucose [Mass/volume] in Serum or Plasma [2345-7] 10/25/2024 04:42 PM 138 mg/dL N Blood chemistry[[id number]] Glucose [Mass/volume] in Serum or Plasma [2345-7] 10/25/2024 12:12 PM 228 mg/dL N Blood chemistry[[id number]] Glucose [Mass/volume] in Serum or Plasma [2345-7] 10/25/2024 08:43 AM 274 mg/dL N Blood chemistry[[id number]] Glucose [Mass/volume] in Serum or Plasma [2345-7] 10/25/2024 08:29 AM 143 mg/dL N Blood chemistry[[id number]] Glucose [Mass/volume] in Serum or Plasma [2345-7] 10/24/2024 12:55 PM 199 mg/dL N Blood chemistry[[id number]] Glucose [Mass/volume] in Serum or Plasma [2345-7] 10/24/2024 09:21 AM 157 mg/dL N Blood chemistry[[id number]] Glucose [Mass/volume] in Serum or Plasma [2345-7] 10/24/2024 08:14 AM 116 mg/dL N Blood chemistry[[id number]] Glucose [Mass/volume] in Serum or Plasma [2345-7] 10/24/2024 05:15 AM 189 mg/dL N Blood chemistry[[id number]] Glucose [Mass/volume] in Serum or Plasma [2345-7] 10/23/2024 03:24 PM 162 mg/dL N Blood chemistry[[id number]] Glucose [Mass/volume] in Serum or Plasma [2345-7] 10/23/2024 12:33 PM 189 mg/dL N Blood chemistry[[id number]] Glucose [Mass/volume] in Serum or Plasma [2345-7] 10/23/2024 09:02 AM 183 mg/dL N Blood chemistry[[id number]] Glucose [Mass/volume] in Serum or Plasma [2345-7] 10/23/2024 08:00 AM 208 mg/dL N Blood chemistry[[id number]] Glucose [Mass/volume] in Serum or Plasma [2345-7] 10/22/2024 03:05 PM 205 mg/dL N Blood chemistry[[id number]] Glucose [Mass/volume] in Serum or Plasma [2345-7] 10/22/2024 12:35 PM 235 mg/dL N Blood chemistry[[id number]] Glucose [Mass/volume] in Serum or Plasma [2345-7] 10/22/2024 09:04 AM 137 mg/dL N Blood chemistry[[id number]] Glucose [Mass/volume] in Serum or Plasma [2345-7] 10/22/2024 08:12 AM 227 mg/dL N Blood chemistry[[id number]] Glucose [Mass/volume] in Serum or Plasma [2345-7] 10/21/2024 03:45 PM 181 mg/dL N Blood chemistry[[id number]] Glucose [Mass/volume] in Serum or Plasma [2345-7] 10/21/2024 01:28 PM 237 mg/dL N Blood chemistry[[id number]] Glucose [Mass/volume] in Serum or Plasma [2345-7] 10/21/2024 09:17 AM 183 mg/dL N Blood chemistry[[id number]] Glucose [Mass/volume] in Serum or Plasma [2345-7] 10/21/2024 09:11 AM 155 mg/dL N Blood chemistry[[id number]] Glucose [Mass/volume] in Serum or Plasma [2345-7] 10/20/2024 01:30 PM 259 mg/dL N Blood chemistry[[id number]] Glucose [Mass/volume] in Serum or Plasma [2345-7] 10/20/2024 09:21 AM 195 mg/dL N Blood chemistry[[id number]] Glucose [Mass/volume] in Serum or Plasma [2345-7] 10/20/2024 08:18 AM 225 mg/dL N Blood chemistry[[id number]] Glucose [Mass/volume] in Serum or Plasma [2345-7] 10/20/2024 05:02 AM 228 mg/dL N Blood chemistry[[id number]] Glucose [Mass/volume] in Serum or Plasma [2345-7] 10/19/2024 04:47 PM 208 mg/dL N Blood chemistry[[id number]] Glucose [Mass/volume] in Serum or Plasma [2345-7] 10/19/2024 12:51 PM 237 mg/dL N Blood chemistry[[id number]] Glucose [Mass/volume] in Serum or Plasma [2345-7] 10/19/2024 09:31 AM 158 mg/dL N Blood chemistry[[id number]] Glucose [Mass/volume] in Serum or Plasma [2345-7] 10/19/2024 08:38 AM 119 mg/dL N Blood chemistry[[id number]] Glucose [Mass/volume] in Serum or Plasma [2345-7] 10/18/2024 03:26 PM 145 mg/dL N Blood chemistry[[id number]] Glucose [Mass/volume] in Serum or Plasma [2345-7] 10/18/2024 11:51 AM 210 mg/dL N Blood chemistry[[id number]] Glucose [Mass/volume] in Serum or Plasma [2345-7] 10/18/2024 09:06 AM 98 mg/dL N Blood chemistry[[id number]] Glucose [Mass/volume] in Serum or Plasma [2345-7] 10/18/2024 08:16 AM 254 mg/dL N Blood chemistry[[id number]] Glucose [Mass/volume] in Serum or Plasma [2345-7] 10/17/2024 03:09 PM 179 mg/dL N Blood chemistry[[id number]] Glucose [Mass/volume] in Serum or Plasma [2345-7] 10/17/2024 01:24 PM 208 mg/dL N Blood chemistry[[id number]] Glucose [Mass/volume] in Serum or Plasma [2345-7] 10/17/2024 08:14 AM 234 mg/dL N Glucose [Mass/volume] in Serum or Plasma [2345-7] 10/17/2024 08:14 AM 118 mg/dL N Blood chemistry[[id number]] Glucose [Mass/volume] in Serum or Plasma [2345-7] 10/16/2024 04:45 PM 167 mg/dL N Blood chemistry[[id number]] Glucose [Mass/volume] in Serum or Plasma [2345-7] 10/16/2024 12:39 PM 228 mg/dL N Blood chemistry[[id number]] Glucose [Mass/volume] in Serum or Plasma [2345-7] 10/16/2024 09:54 AM 198 mg/dL N Blood chemistry[[id number]] Glucose [Mass/volume] in Serum or Plasma [2345-7] 10/16/2024 08:15 AM 194 mg/dL N Blood chemistry[[id number]] Glucose [Mass/volume] in Serum or Plasma [2345-7] 10/15/2024 04:30 PM 122 mg/dL N Blood chemistry[[id number]] Glucose [Mass/volume] in Serum or Plasma [2345-7] 10/15/2024 12:46 PM 148 mg/dL N Blood chemistry[[id number]] Glucose [Mass/volume] in Serum or Plasma [2345-7] 10/15/2024 09:15 AM 306 mg/dL N Blood chemistry[[id number]] Glucose [Mass/volume] in Serum or Plasma [2345-7] 10/15/2024 08:48 AM 95 mg/dL N Blood chemistry[[id number]] Glucose [Mass/volume] in Serum or Plasma [2345-7] 10/14/2024 01:12 PM 241 mg/dL N Blood chemistry[[id number]] Glucose [Mass/volume] in Serum or Plasma [2345-7] 10/14/2024 09:47 AM 109 mg/dL N Blood chemistry[[id number]] Glucose [Mass/volume] in Serum or Plasma [2345-7] 10/14/2024 08:59 AM 225 mg/dL N Blood chemistry[[id number]] Glucose [Mass/volume] in Serum or Plasma [2345-7] 10/13/2024 03:19 PM 203 mg/dL N Blood chemistry[[id number]] Glucose [Mass/volume] in Serum or Plasma [2345-7] 10/13/2024 12:14 PM 290 mg/dL N Blood chemistry[[id number]] Glucose [Mass/volume] in Serum or Plasma [2345-7] 10/13/2024 09:28 AM 115 mg/dL N Blood chemistry[[id number]] Glucose [Mass/volume] in Serum or Plasma [2345-7] 10/13/2024 08:03 AM 240 mg/dL N Blood chemistry[[id number]] Glucose [Mass/volume] in Serum or Plasma [2345-7] 10/12/2024 03:22 PM 177 mg/dL N Blood chemistry[[id number]] Glucose [Mass/volume] in Serum or Plasma [2345-7] 10/12/2024 12:07 PM 201 mg/dL N Blood chemistry[[id number]] Glucose [Mass/volume] in Serum or Plasma [2345-7] 10/12/2024 09:42 AM 111 mg/dL N Blood chemistry[[id number]] Glucose [Mass/volume] in Serum or Plasma [2345-7] 10/12/2024 08:06 AM 188 mg/dL N Blood chemistry[[id number]] Glucose [Mass/volume] in Serum or Plasma [2345-7] 10/11/2024 03:19 PM 315 mg/dL N Blood chemistry[[id number]] Glucose [Mass/volume] in Serum or Plasma [2345-7] 10/11/2024 12:33 PM 258 mg/dL N Blood chemistry[[id number]] Glucose [Mass/volume] in Serum or Plasma [2345-7] 10/11/2024 08:42 AM 158 mg/dL N Blood chemistry[[id number]] Glucose [Mass/volume] in Serum or Plasma [2345-7] 10/11/2024 08:37 AM 167 mg/dL N Blood chemistry[[id number]] Glucose [Mass/volume] in Serum or Plasma [2345-7] 10/10/2024 04:02 PM 197 mg/dL N Blood chemistry[[id number]] Glucose [Mass/volume] in Serum or Plasma [2345-7] 10/10/2024 12:38 PM 233 mg/dL N Blood chemistry[[id number]] Glucose [Mass/volume] in Serum or Plasma [2345-7] 10/10/2024 10:05 AM 123 mg/dL N Blood chemistry[[id number]] Glucose [Mass/volume] in Serum or Plasma [2345-7] 10/10/2024 08:50 AM 268 mg/dL N Blood chemistry[[id number]] Glucose [Mass/volume] in Serum or Plasma [2345-7] 10/09/2024 03:05 PM 184 mg/dL N Blood chemistry[[id number]] Glucose [Mass/volume] in Serum or Plasma [2345-7] 10/09/2024 12:41 PM 153 mg/dL N Blood chemistry[[id number]] Glucose [Mass/volume] in Serum or Plasma [2345-7] 10/09/2024 09:54 AM 203 mg/dL N Blood chemistry[[id number]] Glucose [Mass/volume] in Serum or Plasma [2345-7] 10/09/2024 08:27 AM 223 mg/dL N Blood chemistry[[id number]] Glucose [Mass/volume] in Serum or Plasma [2345-7] 10/08/2024 03:27 PM 206 mg/dL N Blood chemistry[[id number]] Glucose [Mass/volume] in Serum or Plasma [2345-7] 10/08/2024 12:11 PM 190 mg/dL N Blood chemistry[[id number]] Glucose [Mass/volume] in Serum or Plasma [2345-7] 10/08/2024 08:12 AM 189 mg/dL N Blood chemistry[[id number]] Glucose [Mass/volume] in Serum or Plasma [2345-7] 10/08/2024 07:43 AM 245 mg/dL N Blood chemistry[[id number]] Glucose [Mass/volume] in Serum or Plasma [2345-7] 10/07/2024 03:21 PM 209 mg/dL N Blood chemistry[[id number]] Glucose [Mass/volume] in Serum or Plasma [2345-7] 10/07/2024 01:29 PM 227 mg/dL N Blood chemistry[[id number]] Glucose [Mass/volume] in Serum or Plasma [2345-7] 10/07/2024 09:38 AM 108 mg/dL N Blood chemistry[[id number]] Glucose [Mass/volume] in Serum or Plasma [2345-7] 10/07/2024 09:11 AM 201 mg/dL N Blood chemistry[[id number]] Glucose [Mass/volume] in Serum or Plasma [2345-7] 10/06/2024 03:22 PM 169 mg/dL N Blood chemistry[[id number]] Glucose [Mass/volume] in Serum or Plasma [2345-7] 10/06/2024 01:56 PM 254 mg/dL N Blood chemistry[[id number]] Glucose [Mass/volume] in Serum or Plasma [2345-7] 10/06/2024 08:33 AM 236 mg/dL N Blood chemistry[[id number]] Glucose [Mass/volume] in Serum or Plasma [2345-7] 10/06/2024 08:11 AM 112 mg/dL N Tuberculosis reaction wheal[ 93062-5] Tuberculosis reaction wheal [58345-8] 10/05/2024 04:00 PM 0 mm NEG Blood chemistry[234590168] Glucose [Mass/volume] in Serum or Plasma [2345-7] 10/05/2024 03:56 PM 212 mg/dL N Blood chemistry[[id number]] Glucose [Mass/volume] in Serum or Plasma [2345-7] 10/05/2024 01:00 PM 317 mg/dL N Blood chemistry[[id number]] Glucose [Mass/volume] in Serum or Plasma [2345-7] 10/05/2024 08:28 AM 131 mg/dL N Blood chemistry[[id number]] Glucose [Mass/volume] in Serum or Plasma [2345-7] 10/05/2024 08:18 AM 226 mg/dL N Blood chemistry[[id number]] Glucose [Mass/volume] in Serum or Plasma [2345-7] 10/04/2024 03:26 PM 251 mg/dL N Blood chemistry[[id number]] Glucose [Mass/volume] in Serum or Plasma [2345-7] 10/04/2024 12:31 PM 261 mg/dL N Blood chemistry[[id number]] Glucose [Mass/volume] in Serum or Plasma [2345-7] 10/04/2024 08:14 AM 139 mg/dL N Blood chemistry[[id number]] Glucose [Mass/volume] in Serum or Plasma [2345-7] 10/04/2024 08:00 AM 173 mg/dL N Blood chemistry[[id number]] Glucose [Mass/volume] in Serum or Plasma [2345-7] 10/03/2024 02:58 PM 251 mg/dL N Blood chemistry[[id number]] Glucose [Mass/volume] in Serum or Plasma [2345-7] 10/03/2024 02:42 PM 336 mg/dL N Blood chemistry[[id number]] Glucose [Mass/volume] in Serum or Plasma [2345-7] 10/03/2024 08:40 AM 205 mg/dL N Blood chemistry[[id number]] Glucose [Mass/volume] in Serum or Plasma [2345-7] 10/03/2024 07:50 AM 199 mg/dL N Blood chemistry[[id number]] Glucose [Mass/volume] in Serum or Plasma [2345-7] 10/02/2024 03:05 PM 259 mg/dL N Blood chemistry[[id number]] Glucose [Mass/volume] in Serum or Plasma [2345-7] 10/02/2024 12:00 PM 193 mg/dL N Blood chemistry[[id number]] Glucose [Mass/volume] in Serum or Plasma [2345-7] 10/02/2024 08:04 AM 173 mg/dL N Blood chemistry[[id number]] Glucose [Mass/volume] in Serum or Plasma [2345-7] 10/02/2024 07:59 AM 146 mg/dL N Blood chemistry[[id number]] Glucose [Mass/volume] in Serum or Plasma [2345-7] 10/01/2024 04:39 PM 242 mg/dL N Blood chemistry[[id number]] Glucose [Mass/volume] in Serum or Plasma [2345-7] 10/01/2024 11:45 AM 241 mg/dL N Blood chemistry[[id number]] Glucose [Mass/volume] in Serum or Plasma [2345-7] 10/01/2024 09:07 AM 202 mg/dL N Blood chemistry[[id number]] Glucose [Mass/volume] in Serum or Plasma [2345-7] 10/01/2024 07:53 AM 398 mg/dL N Blood chemistry[[id number]] Glucose [Mass/volume] in Serum or Plasma [2345-7] 09/30/2024 02:29 PM 237 mg/dL N Blood chemistry[[id number]] Glucose [Mass/volume] in Serum or Plasma [2345-7] 09/30/2024 12:58 PM 364 mg/dL N Blood chemistry[[id number]] Glucose [Mass/volume] in Serum or Plasma [2345-7] 09/30/2024 09:30 AM 180 mg/dL N Blood chemistry[[id number]] Glucose [Mass/volume] in Serum or Plasma [2345-7] 09/30/2024 09:00 AM 234 mg/dL N Blood chemistry[[id number]] Glucose [Mass/volume] in Serum or Plasma [2345-7] 09/29/2024 03:21 PM 281 mg/dL N Blood chemistry[[id number]] Glucose [Mass/volume] in Serum or Plasma [2345-7] 09/29/2024 01:52 PM 268 mg/dL N Blood chemistry[[id number]] Glucose [Mass/volume] in Serum or Plasma [2345-7] 09/29/2024 09:10 AM 93 mg/dL N Blood chemistry[[id number]] Glucose [Mass/volume] in Serum or Plasma [2345-7] 09/29/2024 07:59 AM 229 mg/dL N Blood chemistry[[id number]] Glucose [Mass/volume] in Serum or Plasma [2345-7] 09/28/2024 03:10 PM 330 mg/dL N Blood chemistry[[id number]] Glucose [Mass/volume] in Serum or Plasma [2345-7] 09/28/2024 12:02 PM 232 mg/dL N Blood chemistry[[id number]] Glucose [Mass/volume] in Serum or Plasma [2345-7] 09/28/2024 08:56 AM 388 mg/dL N Blood chemistry[[id number]] Glucose [Mass/volume] in Serum or Plasma [2344-7] 09/28/2024 08:08 AM 179 mg/dL N Blood chemistry[[id number]] Glucose [Mass/volume] in Serum or Plasma [2344-7] 09/27/2024 04:25 PM 151 mg/dL N Blood chemistry[[id number]] Glucose [Mass/volume] in Serum or Plasma [2344-7] 09/27/2024 01:49 PM 314 mg/dL N Blood chemistry[[id number]] Glucose [Mass/volume] in Serum or Plasma [2344-7] 09/27/2024 08:50 AM 282 mg/dL N Blood chemistry[[id number]] Glucose [Mass/volume] in Serum or Plasma [2344-7] 09/27/2024 08:48 AM 167 mg/dL N Blood chemistry[[id number]] Glucose [Mass/volume] in Serum or Plasma [2344-7] 09/26/2024 04:26 PM 348 mg/dL N Blood chemistry[[id number]] Glucose [Mass/volume] in Serum or Plasma [2344-7] 09/26/2024 01:51 PM 397 mg/dL N Blood chemistry[[id number]] Glucose [Mass/volume] in Serum or Plasma [2344-7] 09/26/2024 09:50 AM 165 mg/dL N Blood chemistry[[id number]] Glucose [Mass/volume] in Serum or Plasma [2344-7] 09/26/2024 09:15 AM 276 mg/dL N Tuberculosis reaction wheal[ 80723-1] Tuberculosis reaction wheal [33429-6] 09/25/2024 04:00 PM 0 mm NEG Blood chemistry[[id number]] Glucose [Mass/volume] in Serum or Plasma [2344-7] 09/25/2024 02:13 PM 286 mg/dL N Blood chemistry[[id number]] Glucose [Mass/volume] in Serum or Plasma [2344-7] 09/25/2024 08:06 AM 161 mg/dL N Allergies, adverse reactions, alerts No known allergies and adverse reactions Immunizations Vaccine Route Date Status COVID-19 Vaccine Unassigned Route of Administration Refused Pneumococcal Vaccine Unassigned Route of Administratio n 04/26/2022 Completed Influenza Vaccine Unassigned Route of Administration 1 05/29/2023 Completed Pneumococcal Vaccine Unassigned Route of Administratio n 05/20/2014 Completed Influenza Vaccine Unassigned Route of Administration 1 Completed Medications Medication Instructions Route Dosage Frequency Start Date Stop Date Indications Status acetaminophen 325 mg capsule (acetaminophen ) 2 tabs, oral, Every 4 Hours - PRN, mild pain of fever oral 1.0 4.0 h 2024 Active albuterol sulfate 90 mcg/actuation HFA aerosol inhaler (albuterol sulfate) 1 puff, inhalation, Every 4 Hours - PRN inhalatio n 1.0 4.0 h 2024 Chronic obstructive pulmonary disease, unspecified Active ascorbic acid (vitamin C) 500 mg tablet (ascorbic acid (vitamin C)) 1 tab, oral, Once A Day, supplement oral 1.0 1.0 d 2024 Active calcium acetate 667 mg tablet (calcium acetate) 2 tabs, oral, Three Times A Day oral 1.0 8.0 h 2024 Arteriovenous fistula, acquired Active aspirin 81 mg tablet,delayed release (DR/EC) (aspirin) 1 tab, oral, Once A Day oral 1.0 1.0 d 2024 Essential (primary) hypertension Active carvedilol 12.5 mg tablet (carvedilol) 1 tab, oral, Twice A Day oral 1.0 12.0 h 2024 Essential (primary) hypertension Active ferrous sulfate 324 mg (65 mg iron) tablet,delayed release (DR/EC) (ferrous sulfate) 1 tab, oral, Once A Day Every Other Day, supplement oral 1.0 1.0 d 2024 Anemia, unspecified Active fluoxetine 40 mg capsule (fluoxetine) 1 cap, oral, Once A Day oral 1.0 1.0 d 2024 Major depressive disorder, recurrent, unspecified Active gabapentin 300 mg capsule (gabapentin) 1 cap, oral, Twice A Day oral 1.0 12.0 h 2024 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 subcutane ous 1.0 2024 Type 2 diabetes mellitus with diabetic polyneuropathy Active Lasix (furosemide) 40 mg tablet (Lasix (furosemide)) 1 tab, oral, Once A Day oral 1.0 1.0 d 2024 Essential (primary) hypertension Active nicotine 21 mg/24 hr patch 24 hour (nicotine) 1 patch, transdermal, Once A Day transderm al 1.0 1.0 d 2024 Active omeprazole 20 mg capsule,delaye d release(DR/EC) (omeprazole) 20mg, oral, Once A Day oral 1.0 1.0 d 2024 Active oxycodone-acet aminophen 10-325 mg tablet (oxycodone-sharon taminophen) 1 tab, oral, Every 4 Hours - PRN, pain oral 1.0 4.0 h 12/14 Infection following a procedure, other surgical site, subsequent encounter Active Rezvoglar KwikPen (insulin glargine-aglr) 100 unit/mL (3 mL) insulin pen (Rezvoglar KwikPen (insulin glargine-aglr) ) 30 units, subcutaneous, Twice A Day subcutane ous 1.0 12.0 h 12/07 Type 2 diabetes mellitus with diabetic polyneuropathy Active Saccharomyces boulardii 250 mg capsule (Saccharomyces boulardii) 1 cap, oral, Twice A Day, d/t correction atb oral 1.0 12.0 h 2024 Active sodium bicarbonate 650 mg tablet (sodium bicarbonate) 1 tab, oral, Three Times A Day, supplement oral 1.0 8.0 h 2024 Active insulin glargine-yfgn 100 unit/mL (3 mL) insulin pen (insulin glargine-yfgn) 30 units, subcutaneous, Twice A Day subcutane ous 1.0 12.0 h 11/23 Type 2 diabetes mellitus with diabetic polyneuropathy Active insulin glargine-yfgn 100 unit/mL (3 mL) insulin pen (insulin glargine-yfgn) 15 units, subcutaneous, Once - One Time, (this is a one time 1/2 dose to usual 30units- because of surgery 11/11/24 subcutane ous 1.0 11/10 Type 2 diabetes mellitus with diabetic polyneuropathy Active oxycodone-acet aminophen 10-325 mg tablet (oxycodone-sharon taminophen) 1 tab, oral, Every 4 Hours, pain oral 1.0 4.0 h 11/12 Infection following a procedure, other surgical site, subsequent encounter Active potassium chloride 20 mEq tablet extended release (potassium chloride) 20 meq, oral, Once - One Time oral 1.0 11/17 Hypokalemia Active potassium chloride 10 mEq capsule, extended release (potassium chloride) 20 meq, oral, At Bedtime oral 1.0 11/17 Hypokalemia Active sodium chloride 0.9 % - solution (sodium chloride 0.9 %) one liter, injection, Once - One Time 1.0 11/09 Active Lantus Solostar U-100 Insulin (insulin glargine) 100 unit/mL (3 mL) insulin pen (Lantus Solostar U-100 Insulin (insulin glargine)) 30 units, subcutaneous, Twice A Day subcutane ous 1.0 12.0 h 2024 Type 2 diabetes mellitus with diabetic polyneuropathy Active Percocet (oxycodone-sharon taminophen) 7.5-325 mg tablet (Percocet (oxycodone-sharon taminophen)) 7.5-325mg, oral, Every 6 Hours - PRN oral 1.0 6.0 h 2024 Active Ozempic (semaglutide) 2 mg/dose (8 mg/3 mL) pen injector (Ozempic (semaglutide)) 2mg, subcutaneous, Once A Day on Sat subcutane ous 1.0 1.0 d 01/27 Active Fluzone High-Dose (PF) (flu vacc qk1110-49(65yr up)-pf) 180 mcg/0.5 mL syringe (Fluzone High-Dose (PF) (flu vacc mb7945-58(65yr up)-pf)) 0.5ml, intramuscular , Once - One Time intramusc ular 1.0 12/30 Active Ozempic (semaglutide) 2 mg/dose (8 mg/3 mL) pen injector (Ozempic (semaglutide)) 2mg, subcutaneous, Once A Day on Sat subcutane ous 1.0 1.0 d 12/31 Active ondansetron 4 mg tablet,disinte grating (ondansetron) 1 tab, oral, Every 6 Hours - PRN, N&V oral 1.0 6.0 h 2024 Active Colace (docusate sodium) 100 mg capsule (Colace (docusate sodium)) 1 cap, oral, Twice A Day, constipation oral 1.0 12.0 h 2024 Active Miralax (polyethylene glycol 3350) 17 gram/dose powder (Miralax (polyethylene glycol 3350)) 17g, oral, At Bedtime oral 1.0 2024 Active Vital Signs Date Vital Result Comment 11/26/2024 02:09 AM Temperature (8310-5) 98.6 [degF] Oxygen Saturation (22502-2) 98 % Respiratory Rate (9279-1) 20 /min Heart Rate (8867-4) 70 /min Blood Pressure Systolic (8480-6) 154 mm[Hg] Blood Pressure Diastolic (8462-4) 72 mm[Hg] 11/28/2024 06:34 AM Temperature (8310-5) 98.3 [degF] Oxygen Saturation (55729-7) 98 % Respiratory Rate (9279-1) 18 /min Heart Rate (8867-4) 73 /min Blood Pressure Systolic (8480-6) 153 mm[Hg] Blood Pressure Diastolic (8462-4) 75 mm[Hg] 11/22/2024 06:36 AM Temperature (8310-5) 98.2 [degF] Oxygen Saturation (35398-1) 99 % Respiratory Rate (9279-1) 18 /min Heart Rate (8867-4) 76 /min Blood Pressure Systolic (8480-6) 162 mm[Hg] Blood Pressure Diastolic (8462-4) 66 mm[Hg] 11/29/2024 06:31 AM Temperature (8310-5) 98 [degF] Oxygen Saturation (64488-1) 98 % Respiratory Rate (9279-1) 18 /min Heart Rate (8867-4) 75 /min Blood Pressure Systolic (8480-6) 137 mm[Hg] Blood Pressure Diastolic (8462-4) 71 mm[Hg] 09/30/2024 02:49 PM Body Weight (86726-6) 257.2 [lb_av ] Body Mass Index (84258-3) 39.1 kg/m2 10/13/2024 11:05 PM Body Weight (90079-7) 261.4 [lb_av ] Body Mass Index (27480-9) 39.74 kg/m2 11/27/2024 04:11 AM Temperature (8310-5) 98.2 [degF] Oxygen Saturation (97147-0) 98 % Respiratory Rate (9279-1) 18 /min Heart Rate (8867-4) 70 /min Blood Pressure Systolic (8480-6) 166 mm[Hg] Blood Pressure Diastolic (8462-4) 80 mm[Hg] 11/25/2024 01:45 AM Temperature (8310-5) 98.2 [degF] Oxygen Saturation (23637-9) 98 % Respiratory Rate (9279-1) 18 /min Heart Rate (8867-4) 66 /min Blood Pressure Systolic (8480-6) 149 mm[Hg] Blood Pressure Diastolic (8462-4) 71 mm[Hg] 11/30/2024 10:25 AM Temperature (8310-5) 97.8 [degF] Oxygen Saturation (76363-6) 98 % Respiratory Rate (9279-1) 18 /min Heart Rate (8867-4) 78 /min Blood Pressure Systolic (8480-6) 129 mm[Hg] Blood Pressure Diastolic (8462-4) 72 mm[Hg] 11/24/2024 05:40 AM Temperature (8310-5) 98.3 [degF] Oxygen Saturation (74799-6) 98 % Respiratory Rate (9279-1) 18 /min Heart Rate (8867-4) 62 /min Blood Pressure Systolic (8480-6) 155 mm[Hg] Blood Pressure Diastolic (8462-4) 75 mm[Hg] 09/25/2024 04:49 PM Body Height (8302-2) 68 [in_us] 09/27/2024 06:53 AM Body Weight (12730-2) 258.6 [lb_av ] Body Mass Index (25317-6) 39.32 kg/m2 11/23/2024 12:58 AM Temperature (8310-5) 98.2 [degF] Oxygen Saturation (74757-6) 97 % Respiratory Rate (9279-1) 20 /min Heart Rate (8867-4) 60 /min Blood Pressure Systolic (8480-6) 166 mm[Hg] Blood Pressure Diastolic (8462-4) 63 mm[Hg] 11/21/2024 12:06 AM Temperature (8310-5) 98 [degF] Oxygen Saturation (47850-9) 98 % Respiratory Rate (9279-1) 18 /min Heart Rate (8867-4) 80 /min Blood Pressure Systolic (8480-6) 152 mm[Hg] Blood Pressure Diastolic (8462-4) 62 mm[Hg] 10/30/2024 02:51 PM Body Weight (17021-5) 262 [lb_av] Body Mass Index (43839-4) 39.83 kg/m2 12/03/2024 01:57 PM Body Weight (55506-4) 274 [lb_av] Body Mass Index (50448-5) 41.66 kg/m2 10/06/2024 06:34 PM Body Weight (40897-8) 257.6 [lb_av ] Body Mass Index (57184-6) 39.16 kg/m2 10/20/2024 09:14 PM Body Weight (41769-1) 261.2 [lb_av ] Body Mass Index (02873-0) 39.71 kg/m2 12/07/2024 10:40 AM Body Weight (97447-7) 277 [lb_av] Body Mass Index (52370-0) 42.11 kg/m2 12/07/2024 06:46 PM Temperature (8310-5) 97.9 [degF] Oxygen Saturation (34351-2) 97 % Respiratory Rate (9279-1) 18 /min Heart Rate (8867-4) 65 /min Blood Pressure Systolic (8480-6) 144 mm[Hg] Blood Pressure Diastolic (8462-4) 82 mm[Hg] 12/19/2024 12:34 AM Temperature (8310-5) 98 [degF] 12/29/2024 11:34 PM Body Weight (87875-1) 285.1 [lb_av ] Body Mass Index (49379-1) 43.34 kg/m2 12/30/2024 12:31 PM Temperature (8310-5) 98 [degF] 12/30/2024 03:21 PM Body Weight (77101-3) 285.1 [lb_av ] Body Mass Index (86282-7) 43.34 kg/m2 12/30/2024 08:51 PM Temperature (8310-5) 98.3 [degF] 12/31/2024 01:40 AM Temperature (8310-5) 98 [degF] 12/31/2024 08:52 AM Temperature (8310-5) 98.4 [degF] 12/31/2024 05:36 PM Temperature (8310-5) 98.3 [degF] 01/01/2025 12:56 AM Temperature (8310-5) 98.1 [degF] 01/01/2025 09:30 AM Temperature (8310-5) 98.2 [degF] 01/01/2025 04:29 PM Temperature (8310-5) 98.1 [degF] 01/01/2025 11:44 PM Temperature (8310-5) 98.3 [degF] 01/02/2025 08:46 AM Temperature (8310-5) 98.2 [degF] 01/02/2025 11:40 PM Temperature (8310-5) 97 [degF] Social History No smoking Hx information available Encounters Type CPT Code Date Location Provider Indication s encounter report 09/25/2024 03:40 PM Anthony Jimenez MD Advance Directives Directive Description Verification Date Supporting Document(s) Other Directive
--- OUTSIDE RECORDS SUMMARY | 2025-01-05 15:52 | XMS_ITS | Encounter Summary ---
Author Organization [facility] Address [address] [place] [address] Care Team Providers Care Digital Content Producer Name Role Phone Portia Land MD Primary Care Provider [phone] Encounter Details Date Type Department Care Team (Late st Contact Info) Description 01/27/2024 External Result Encounter [facility] External Department Unsolicited Chele Lopez DPM [address] [address] Social History Tobacco Use Types Packs/Day Years Used Date Smoking Tobacco: Every Day Cigarettes 1 45.8 Started: 1979 Smokeless Tobacco: Never Alcohol Use Standard Drinks/Week Comments Never 0 (1 standard drink = 0.6 oz pur e alcohol) Sex and Gender Information Value Date Recorded Sex Assigned at Male 10/14/2022 3:37 PM EDT Legal Sex Male 7:00 PM EDT Gender Identity Male 10/14/2022 3:37 PM EDT Sexual Orientation Straight 10/14/2022 3: 37 PM EDT documented as of this encounter Plan of Treatment Upcoming Encounters Date Type Department Care Team (Late st Contact Info) Description 01/22/2025 1:50 PM EDT Office Visit [facility] [address] [place] [address] Chele Lopez DPM [address] [address] documented as of this encounter Procedures Procedure Name Priority Date/Time Associated Diagnosis Comments CT FOOT LEFT WO IV CONTRAST 01/27/2024 9:46 PM EDT documented in this encounter Results * CT foot left wo IV contrast (01/27/2024 9:46 PM EDT) Anatomical Region Laterality Modality Lower Extremities, Foot Left Computed Tomography 01/27/2024 9:46 PM EDT Impressions 01/27/2024 9:54 PM EDT Chronic bony defect of the distal foot. Amputation changes of the 1st metatarsal. No acute bony erosion to suggest acute osteomyelitis. Soft tissue swelling with subcutaneous air consistent with cellulitis. Small abscess may be present dorsal aspect of foot. This is difficult due to extensive adjacent soft tissue inflammation. Impression dictated by: Samuel Owen M.D.01/27/2024 9:52 PM Dictation Location: [place] [address] Transcribed By: [facility] 01/27/242151 Dictated By: Samuel Owen DO 01/27/242145 Signed By: <Electronically signed by Samuel Owen DO in OV> 01/27/242151 Narrative 01/27/2024 9:54 PM EDT [facility] [place] [address] [place] [address] CT Scan Report Signed Patient: Tomas Sherman MR#: [id number] : 1965 Acct:[id number] Age/Sex: 58 / M ADM Date: 01/26/24 Loc: Room: [address] [place] [address] Type: ADM IN Attending Dr: Ricci Murray DO Copies to: DO Chele Zarco DPM Ordering Provider: Chele Lopez DPM Date of Service: 01/27/24 CT/CT foot LT wo con: left foot abcess/exposed bone CT LEFT foot without contrast TECHNIQUE: The CT exam was performed using one or more the following dose reduction techniques: Automated exposure control, adjustment of the MA and/or Kv according to patient size, or use of the iterative reconstruction technique. COMPARISON: Plain film imaging 01/26/24 HISTORY: LEFT foot abscess. Exposed bone. Amputation of the distal portion of the 1st metatarsal. Chronic bony erosion of the distal portion of the 2nd metatarsal. Intact the 3rd metatarsal. Intact 4th metatarsal. Residual chronic bony density of the 5th metatarsal. 4th toe dislocation no proximally. Diffuse soft tissue swelling with regions of subcutaneous air consistent with cellulitis. Small fluid collections may be present. No large fluid collection. Large wound defect distal foot. No radiodense foreign body. CT/CT foot LT wo con Procedure Note Radiology, Radiologist, - 01/27/2024 [facility] [place] [address] [place] [address] CT Scan Report Signed Patient: Tomas Sherman SrMR#: [id number] : 1965Acct:[id number] Age/Sex: 58 / MADM Date: 01/26/24 Loc: Room: [id number]: ADM IN Attending Dr: Ricci Murray DO Copies to: DO Chele Zarco DPM Ordering Provider: Chele Lopez DPM Date of Service: 01/27/24 CT/CT foot LT wo con: left foot abcess/exposedbone CT LEFT foot without contrast TECHNIQUE: The CT exam was performed using one or more the following dosereduction techniques: Automated exposure control, adjustment of the MA and/or Kv according topatient size, or use of the iterative reconstruction technique. COMPARISON: Plain film imaging 01/26/24 HISTORY: LEFT foot abscess. Exposed bone. Amputation of the distal portion of the 1st metatarsal. Chronic bonyerosion of the distal portion of the 2nd metatarsal. Intact the 3rd metatarsal. Intact 4th metatarsal.Residual chronic bony density of the 5th metatarsal. 4th toe dislocation no proximally.Diffuse soft tissue swelling with regions of subcutaneous air consistent with cellulitis. Small fluidcollections may be present. No large fluid collection. Large wound defect distal foot. Noradiodense foreign body. CT/CT foot LT wo con IMPRESSION: Chronic bony defect of the distal foot. Amputation changes of the 1stmetatarsal. No acute bony erosion to suggest acute osteomyelitis. Soft tissue swellingwith subcutaneous air consistent with cellulitis. Small abscess may be present dorsal aspect offoot. This is difficult due to extensive adjacent soft tissue inflammation. Impression dictated by: Samuel Owen M.D.01/27/2024 9:52 PM Dictation Location: [place] [address] Transcribed By: [facility] 01/27/242151 Dictated By: Samuel Owen DO 01/27/242145 Signed By: <Electronically signed by Samuel Owen DO in OV> 01/27/242151 Chele Lopez DPConsuelo IMG CT PROCEDURES Final Res ult documented in this encounter Visit Diagnoses Not on filedocumented in this encounter Care Teams Digital Content Producer Relationship Specialty Start Date End Date Portia Land MD [address] [place] [address] PCP - General Family Medicine 09/13/22 documented as of this encounter
--- OUTSIDE RECORDS SUMMARY | 2025-01-05 15:52 | XMS_ITS | Encounter Summary ---
Author Organization [facility] Address [address] [place] [address] Care Team Providers Care Door Furring Installer Name Role Phone Portia Land MD Primary Care Provider [phone] Encounter Details Date Type Department Care Team (Late st Contact Info) Description 01/27/2024 Abstract [facility] [address] [place] [address] Chele Lopez DPM [address] [address] Social History Tobacco Use Types Packs/Day Years [...] EDT Office Visit [facility] [address] [place] [phone] Chele Lopez DPM [address] [address] documented as of this encounter Visit Diagnoses Not on filedocumented in this encounter Care Teams Door Furring Installer Relationship Specialty Start Date End Date Portia Land MD [address] [place] [address] PCP - General Family Medicine 09/13/22 documented as of this encounter
--- OUTSIDE RECORDS SUMMARY | 2025-01-05 15:52 | XMS_ITS | Encounter Summary ---
Author Organization [facility] Address [address] [place] [address] Care Team Providers Care Machine Setter Automatic Name Role Phone Portia Land MD Primary Care Provider [phone] Reason for Visit * Reason Onset Date Comments Procedure 12/28/2024 Encounter Details Date Type Department Care Team ([facility] Contact Info) Description 12/28/2024 Telephone [facility] [address] [facility] [address] [place] [address] Chele Lopez DPM [address] [facility] [address] [place] [address] Procedure Social History Tobacco Use Types Packs/Day Years [...] PM EDT documented as of this encounter Miscellaneous Notes * Telephone Encounter - Chele Lopez DPM - 01/05/2025 9:17 AM EDT That will work, thanks * Telephone Encounter - Ewelina Gracia - 01/05/2025 8:54 AM EDT Case moved to [facility], they are unable to accommodate until next Saturday, 01-15 at 12:15pm. Called and left message to relay changes to patient. * Telephone Encounter - Chele Lopez DPM - 01/05/2025 6:46 AM EDT This procedure is an integra graft at [facility]. It says at [facility] on the form. This needs to be done [facility]. Please change. * Telephone Encounter - Ewelina Gracia - 01/04/2025 8:47 AM EDT Per call with [employer] @ [phone] with Christina Troy, policy is active and and [facility] are in network. Patient has no individual deductible and has met out of pocket deductible of 4,700. No authorization is needed for code 31313. Reference#: [id number] No pst or pcp clearance needed due to being a local case. Patient aware of appointments. Surgery scheduled on both portals. Demographics, insurance card, office notes, sx appt sheet and sxform uploaded to [facility] portal. 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 NO WEIGHT BEARING STATUS-- partial to nonweightbearing documented in this encounter Plan of Treatment Upcoming Encounters Date Type Department Care Team ([facility] st Contact Info) Description 01/22/2025 1:50 PM EDT Office Visit [facility] [address] [place] [phone] Chele Lopez DPM [address] [address] documented as of this encounter Visit Diagnoses Not on filedocumented in this encounter Care Teams Machine Setter Automatic Relationship Specialty Start Date End Date Portia Land MD [address] [place] [address] PCP - General Family Medicine 09/13/22 documented as of this encounter
--- OUTSIDE RECORDS SUMMARY | 2025-01-05 15:53 | XMS_ITS | Encounter Summary ---
Author Organization [facility] Address [address] [place] [address] Care Team Providers Care Matrix Repairer Name Role Phone Portia Land MD Primary Care Provider [phone] Encounter Details Date Type Department Care Team (Late st Contact Info) Description 08/12/2024 Abstract [facility] [address] [place] [phone] Bladimir Head DPM [facility] [address] [facility] [place] [address] Social History Tobacco Use Types Packs/Day Years [...] Encounters Date Type Department Care Team (Late Contact Info) Description 01/22/2025 1:50 PM EDT Office Visit [facility] [address] [place] [phone] Chele Lopez DPM [address] [facility] [address] [place] [address] documented as of this encounter Visit Diagnoses Not on filedocumented in this encounter Care Teams Matrix Repairer Relationship Specialty Start Date End Date Portia Land MD [address] [place] [address] PCP - General Family Medicine 09/13/22 documented as of this encounter
--- OUTSIDE RECORDS SUMMARY | 2025-01-05 15:53 | XMS_ITS | Encounter Summary ---
Author Organization [facility] Address [address] [place] [address] Care Team Providers Care Credit Underwriter Name Role Phone Portia Land MD Primary Care Provider [phone] Encounter Details Date Type Department Care Team (Late st Contact Info) Description 01/28/2024 External Result Encounter [facility] External Department Unsolicited Chele Lopez DPM [address] [address] Social History Tobacco Use Types Packs/Day Years [...] PM EDT Office Visit [facility] [address] [place] [address] Chele Lopez DPM [address] [address] documented as of this encounter Procedures Procedure Name Priority Date/Time Associated Diagnosis Comments [facility] US PVR/SEGMENTAL PRESSURES LOWER 01/28/2024 9:51 AM EDT documented in this encounter Results * [facility] US PVR/SEGMENTAL PRESSURES LOWER (01/28/2024 9:51 AM EDT) Anatomical Region Laterality Modality Right Ultrasound 01/28/2024 9:51 AM EDT Impressions 01/28/2024 9:54 AM EDT NO HEMODYNAMICALLY SIGNIFICANT PERIPHERAL VASCULAR OCCLUSIVE DISEASE AT REST IN EITHER LOWER EXTREMITY. Impression dictated by: Samuel Diaz M.D.01/28/2024 9:52 AM Dictation Location: [place] [address] Tech: Edel Leroy Transcribed By: KUSH 01/28/24951 Dictated By: Samuel Diaz MD 01/28/24950 Signed By: <Electronically signed by MD Samuel Diaz in OV> 01/28/24 0952 Narrative 01/28/2024 9:54 AM EDT [facility] [address] Ultrasound Report Signed Patient: Tomas Sherman Sr MR#: [id number] : 1965 Acct:[id number] Age/Sex: 58 / M ADM Date: 01/26/24 Loc: Room: [address] [place] [address] Type: ADM IN Attending Dr: Ricci Murray DO Ordering Provider: Chele Lopez DPM Date of Service: 01/27/24 US/US arterial pvr rest LE: left abcess foot/OM/dm2 Copies to: DO Chele Zarco DPM LOWER EXTREMITY SEGMENTAL ARTERIAL DOPSCAN (PVR) INDICATION: Left foot wound PROCEDURE: Right arm blood pressure is 140 , left is not obtained due to a dialysis access . Pressures throughout the right leg are at the 185 low thigh, 172 at the calf, 182 at the ankle using the posterior tibial artery, and 194 at the ankle using the dorsalis pedis artery with ankle-brachial index of 1.30 1.39 . Pressures throughout the left leg are at the 158 low thigh, 163 at the calf and 180 at the ankle using the posterior tibial artery, and 177 at the ankle using the dorsalis pedis artery with ankle-brachial index of 1.29 1.26 . Wave forms by plethysmography are normal. US/US arterial pvr rest LE Procedure Note Samuel Diaz MD - 01/28/2024 [facility] [place] [id number] Ultrasound Report Signed Patient: Tomas Sherman SrMR#: [id number] : 1965Acct:[id number] Age/Sex: 58 / MADM Date: 01/26/24 Loc: Room: [id number]: ADM IN Attending Dr: Ricci Murray DO Ordering Provider: Chele Lopez DPM Date of Service: 01/27/24 US/US arterial pvr rest LE: left abcessfoot/OM/dm2 Copies to: DO Chele Zarco DPM LOWER EXTREMITY SEGMENTAL ARTERIAL DOPSCAN (PVR) INDICATION: Left foot wound PROCEDURE: Right arm blood pressure is 140 , left is not obtained due toa dialysis access . Pressures throughout the right leg are at the 185 low thigh, 172 atthe calf, 182 at the ankle using the posterior tibial artery, and 194 at the ankle using thedorsalis pedis artery with ankle-brachial index of 1.30 1.39 . Pressures throughout the left leg are at the 158 low thigh, 163 atthe calf and 180 at the ankle using the posterior tibial artery, and 177 at the ankle using thedorsalis pedis artery with ankle-brachial index of 1.29 1.26 . Wave forms by plethysmography are normal. US/US arterial pvr rest LE IMPRESSION: NO HEMODYNAMICALLY SIGNIFICANT PERIPHERAL VASCULAR OCCLUSIVE DISEASE ATREST IN EITHER LOWER EXTREMITY. Impression dictated by: Samuel Diaz M.D.01/28/2024 9:52 AM Dictation Location: [place] [address] Tech: Edel Leroy Transcribed By: KUSH 01/28/24 0952 Dictated By: Samuel Diaz MD 01/28/24 0951 Signed By: <Electronically signed by MD Samuel Diaz in OV> 01/28/2452 us Chele Lopez DPM IMG US PROCEDURES Final Res ult documented in this encounter Visit Diagnoses Not on filedocumented in this encounter Care Teams Credit Underwriter Relationship Specialty Start Date End Date Portia Land MD [facility] [place] [address] PCP - General Family Medicine 09/13/22 documented as of this encounter
--- OUTSIDE RECORDS SUMMARY | 2025-01-05 15:53 | XMS_ITS | Encounter Summary ---
Author Organization [facility] Address [address] [place] [address] Care Team Providers Care Chief Technical Officer Name Role Phone Portia Land MD Primary Care Provider [phone] Encounter Details Date Type Department Care Team (Late st Contact Info) Description 07/29/2024 Abstract [facility] [address] [place] [address] Chele Lopez DPM [address] [address] Social History Tobacco Use Types Packs/Day Years [...] EDT Office Visit [facility] [address] [place] [address] Chele Lopez DPM [address] [address] documented as of this encounter Visit Diagnoses Not on filedocumented in this encounter Care Teams Chief Technical Officer Relationship Specialty Start Date End Date Portia Land MD [address] [place] [address] PCP - General Family Medicine 09/13/22 documented as of this encounter
--- OUTSIDE RECORDS SUMMARY | 2025-01-05 15:53 | XMS_ITS | Encounter Summary ---
Author Organization [facility] Address [address] [place] [place] [address] Care Team Providers Care Superintendent Drivers Name Role Phone Portia Land MD Primary Care Provider [phone] Encounter Details Date Type Department Care Team (Late st Contact Info) Description 08/18/2024 Abstract [facility] [address] [place] [address] Chele Lopez DPM [address] [address] Social History Tobacco Use Types Packs/Day Years [...] EDT Office Visit [facility] [address] [place] [address] Chele Lopez DPM [address] [address] documented as of this encounter Visit Diagnoses Not on filedocumented in this encounter Care Teams Superintendent Drivers Relationship Specialty Start Date End Date Portia Land MD [address] [place] [address] PCP - General Family Medicine 09/13/22 documented as of this encounter
--- OUTSIDE RECORDS SUMMARY | 2025-01-05 15:53 | XMS_ITS | Encounter Summary ---
Author Organization [facility] Address [address] [place] [address] Care Team Providers Care Homemaking Rehabilitation Consultant Name Role Phone Portia Land MD Primary Care Provider [phone] Encounter Details Date Type Department Care Team (Late Contact Info) Description 08/17/2024 Abstract [facility] [address] [place] [phone] Jaylen Head DPM [facility] [address] [place] [address] Social History Tobacco Use Types [...] Office Visit [facility] [address] [place] [address] Chele Lopez DPM [address] [facility] [address] [place] [address] documented as of this encounter Visit Diagnoses Not on filedocumented in this encounter Care Teams Homemaking Rehabilitation Consultant Relationship Specialty Start Date End Date Portia Land MD [address] [place] [address] PCP - General Family Medicine 09/13/22 documented as of this encounter
--- OUTSIDE RECORDS SUMMARY | 2025-01-05 15:53 | XMS_ITS | Encounter Summary ---
Author Organization [facility] Address [address] [place] [address] Care Team Providers Care Pediatric Clinical Dietician Name Role Phone Portia Land MD Primary Care Provider [phone] Encounter Details Date Type Department Care Team (Late st Contact Info) Description 08/22/2024 Abstract [facility] [address] [place] [address] Chele Lopez DPM [address] [address] Social History Tobacco Use Types Packs/Day Years [...] EDT Office Visit [facility] [address] [place] [address] Chele Lopez DPM [address] [address] documented as of this encounter Visit Diagnoses Not on filedocumented in this encounter Care Teams Pediatric Clinical Dietician Relationship Specialty Start Date End Date Portia Land MD [address] [place] [address] PCP - General Family Medicine 09/13/22 documented as of this encounter
--- OUTSIDE RECORDS SUMMARY | 2025-01-05 15:53 | XMS_ITS | Encounter Summary ---
Author Organization [facility] Address [address] [place] [address] Care Team Providers Care Field Spec Name Role Phone Portia Land MD Primary Care Provider [phone] Encounter Details Date Type Department Care Team (Late st Contact Info) Description 07/01/2024 Abstract [facility] [address] [place] [address] Chele Lopez DPM [address] [address] Social History Tobacco Use Types Packs/Day Years [...] EDT Office Visit [facility] [address] [place] [address] Chele Lopez DPM [address] [address] documented as of this encounter Visit Diagnoses Not on filedocumented in this encounter Care Teams Field Spec Relationship Specialty Start Date End Date Portia Land MD [address] [place] [address] PCP - General Family Medicine 09/13/22 documented as of this encounter
--- OUTSIDE RECORDS SUMMARY | 2025-01-05 15:53 | XMS_ITS | Encounter Summary ---
Author Organization [facility] Address [address] [place] [address] Care Team Providers Care Paint Process Engineer Name Role Phone Portia Land MD Primary Care Provider [phone] Encounter Details Date Type Department Care Team (Late st Contact Info) Description 01/27/2024 Abstract [facility] [address] [place] [address] Chele Lopez DPM [address] [address] Social History Tobacco Use Types Packs/Day Years [...] EDT Office Visit [facility] [address] [place] [address] Chele Lopez DPM [address] [address] documented as of this encounter Visit Diagnoses Not on filedocumented in this encounter Care Teams Paint Process Engineer Relationship Specialty Start Date End Date Portia Land MD [address] [place] [address] PCP - General Family Medicine 09/13/22 documented as of this encounter
--- OUTSIDE RECORDS SUMMARY | 2025-01-05 15:53 | XMS_ITS | Encounter Summary ---
Author Organization [facility] Address [address] [place] [address] Care Team Providers Care Product Safety And Standards Engineer Name Role Phone Portia Land MD Primary Care Provider [phone] Encounter Details Date Type Department Care Team (Late st Contact Info) Description 01/04/2025 Abstract [facility] [address] [facility] [address] [place] [address] Chele Lopez DPM [address] [address] Social History Tobacco Use Types Packs/Day Years [...] PM EDT Office Visit [facility] [address] [place] [address] Chele Lopez DPM [address] [address] documented as of this encounter Visit Diagnoses Not on filedocumented in this encounter Care Teams Product Safety And Standards Engineer Relationship Specialty Start Date End Date Portia Land MD [address] [place] [address] PCP - General Family Medicine 09/13/22 documented as of this encounter
--- OUTSIDE RECORDS SUMMARY | 2025-01-05 15:53 | XMS_ITS | Clinical Summary ---
Author Organization [facility] Healthcare Address [address] [place] [address] Care Team Providers Care Tag Marker Name Role Phone Portia Land MD Primary Care Provider [phone] Allergies No known active allergies Medications sodium bicarbonate 650 MG tablet TAKE 2 TABLETS BY MOUTH 3 TIMES A DAY FOR 90 DAY(S) 07/04/19 23 Active pravastatin (Pravachol) 20 MG tablet TAKE 1 TABLET BY MOUTH EVERY DAY FOR 30 DAYS 08/26/19 23 Active omeprazole (PriLOSEC) [address] capsule TAKE 1 CAPSULE BY MOUTH 30 MINUTES BEFORE MORNING MEAL EVERY DAY FOR 90 DAYS 10/06/19 23 Active methylphenidate ER (Concerta) 54 MG CR tablet TAKE 1 TABLET BY MOUTH EVERY DAY IN THE MORNING FOR 30 DAYS 09/28/19 23 Active losartan (Cozaar) 50 MG tablet TAKE 1 TABLET BY MOUTH EVERY DAY FOR 90 DAYS 09/09/19 23 Active loperamide (Imodium) 2 MG capsule TAKE 1 CAPSULE BY MOUTH TWICE A DAY NEEDED 09/09/19 23 Active glimepiride (Amaryl) 4 MG tablet TAKE 1 TABLET BY MOUTH EVERY DAY WITH BREAKFAST OR THE FIRST MAIN MEAL OF THE DAY 09/03/19 23 Active gabapentin (Neurontin) 400 MG capsule Take 400 mg by mouth in the morning and 400 mg in the evening and 400 mg before bedtime. 10/05/19 23 Active furosemide (Lasix) 40 MG tablet TAKE 1 TABLET BY MOUTH EVERY DAY FOR 90 DAYS 05/28/19 23 Active FLUoxetine (PROzac) 40 MG capsule TAKE 1 CAPSULE BY MOUTH EVERY DAY FOR 30 DAYS 07/28/19 Active ergocalciferol (Vitamin D2) 1.25 MG (47768 UT) capsule Take 1 capsule by mouth 1 (one) time per week. 09/04/19 Active Trulicity 1.5 MG/0.5ML solution pen-injector USE DIRECTED SUBCUTANEOUSLY ONCE WEEKLY 28 DAYS 10/06/19 Active carvedilol (Coreg) 12.5 MG tablet Take 12.5 mg by mouth. Take with food. 07/28/19 Active calcium acetate (Phoslo) 667 MG tablet TAKE 2 CAPSULES BY MOUTH 3 TIMES A DAY WITH MEALS 08/29/19 Active busPIRone (Buspar) 30 MG tablet TAKE 1 TABLET BY MOUTH TWICE A DAY NEEDED ANXIETY 10/06/19 Active Symbicort 80-4.5 MCG/ACT inhaler INHALE 2 PUFFS BY MOUTH TWICE A DAY . RINSE MOUTH AFTER INHALATION 07/04/19 Active amLODIPine (Norvasc) 10 MG tablet Take 10 mg by mouth in the morning. 10/06/19 Active albuterol HFA 90 mcg/act inhaler INHALE 1 PUFF INTO THE LUNGS EVERY 4 HOURS NEEDED FOR 30 DAYS 10/06/19 Active Active Problems Problem Noted Date Diagnosed Date Incarcerated umbilical hernia 10/23/2022 Anxiety 10/19/2022 Attention deficit hyperactivity disorder (ADHD) 10/19/2022 BMI 40.0-44.9, adult 10/19/2022 Essential hypertension 10/19/2022 Gastroesophageal reflux disease without esophagi tis 10/19/2022 Long-term insulin use 10/19/2022 Pure hypercholesterolemia 10/19/2022 Severe obesity (BMI 35.0-39.9) with comorbidity 10/19/2022 Status post amputation of toe of left foot ([facility]) 10/19/2022 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 10/19/2022 Encounters Date Type Department Care Team Description 01/04/2025 2:20 PM EDT Office Visit [facility] [address] [place] [address] Chele Lopez, DPConsuelo Diabetes mellitus due to underlying condition with diabetic polyneuropathy, with long-term current use of insulin ([facility]) (Primary Dx); Ulcer of foot, chronic, right, with necrosis of bone (HCC) 01/04/2025 Abstract [facility] [address] [facility] [address] [place] [phone] Chele Lopez, DIANAM 12/28/2024 2:10 PM EDT Office Visit [facility] [address] [place] [phone] Chele Lopez, DPConsuelo Diabetes mellitus due to underlying condition with diabetic polyneuropathy, with long-term current use of insulin (HCC) (Primary Dx); Ulcer of foot, chronic, right, with necrosis of bone (HCC) 12/28/2024 Telephone [facility] [address] [facility] [address] [place] [phone] Chele Lopez DPM Procedure 12/28/2024 Bamboo flowsheet [facility] [address] [place] [address] Chele Lopez, DPM 12/22/2024 Abstract [facility] [address] [facility] [address] [place] [address] Chele Lopez DPM 12/21/2024 2:50 PM EDT Office Visit [facility] [address] [place] [address] Chele Lopez, DPConsuelo Diabetes mellitus due to underlying condition with diabetic polyneuropathy, with long-term current use of insulin (HCC) (Primary Dx); Ulcer of foot, chronic, right, with necrosis of bone (HCC) 12/21/2024 Bamboo flowsheet [facility] [address] [place] [address] Chele Lopez DPM 12/08/2024 Abstract [facility] [place] [facility] [address] [facility] [address] [place] [phone] Hieu Zhang MD 12/07/2024 2:40 PM EDT Office Visit [facility] [address] [place] [phone] Chele Lopez DPM Diabetes mellitus due to underlying condition with diabetic polyneuropathy, with long-term current use of insulin ([facility]) (Primary Dx); Foot ulcer, right, with fat layer exposed (HCC) 12/07/2024 Bamboo flowsheet [facility] [address] [place] [address] Chele Lopez DPM 11/23/2024 1:20 PM EDT Office [facility] [address] [place] [address] Chele Lopez DPM Diabetes mellitus due to underlying condition with diabetic polyneuropathy, with long-term current use of insulin (HCC) (Primary Dx); Foot ulcer, right, with fat layer exposed ([facility]) 11/23/2024 Abstract [facility] [address] [facility] [address] [place] [phone] Chele Lopez DPM 11/18/2024 Clinisync Result Encounter [facility] External Department Unsolicited Efren Merida MD 11/13/2024 Abstract [facility] [address] [facility] [address] [place] [address] Chele Lopez DPConsuelo 11/09/2024 Clinisync Result Encounter [facility] External Department Unsolicited Provider, Generic External Data 11/09/2024 Clinisync Result Encounter [facility] External Department Unsolicited Provider, Generic External Data 11/04/2024 Orders Only [facility] [address] [place] [address] Ewelina Gracia Preop examination 11/02/2024 Abstract [facility] [address] [facility] [address] [place] [phone] Chele Lopez DPM 2024 3:10 PM EDT Office Visit [facility] [address] [place] [address] Chele Lopez DPM Diabetes mellitus due to underlying condition with diabetic polyneuropathy, with long-term current use of insulin (HCC) (Primary Dx); Foot ulcer, right, with fat layer exposed (HCC) 2024 Telephone [facility] [address] [facility] [address] [place] [address] Chele Lopez, DPM Procedure 2024 Bamboo flowsheet [facility] [address] [place] [phone] Chele Lopez, DPM 10/22/2024 Clinisync Result Encounter [facility] External Department Unsolicited Efren Merida MD 10/21/2024 2:20 PM EDT Office Visit [facility] [address] [place] [phone] Chele Lopez DPM Diabetes mellitus due to underlying condition with diabetic polyneuropathy, with long-term current use of insulin (HCC) (Primary Dx); Foot ulcer, left, with fat layer exposed (HCC) 10/21/2024 Bamboo flowsheet [facility] [address] [place] [phone] Chele Lopez DPM 10/14/2024 Abstract [facility] [address] [place] [address] Chele Lopez DPM 10/14/2024 Clinisync Result Encounter [facility] External Department Unsolicited Efren Merida MD 10/14/2024 External Result Encounter [facility] External Department Unsolicited Chele Lopez DPM 10/12/2024 Abstract [facility] [address] [place] [phone] Chele Lopez DPM 10/06/2024 Clinisync Result Encounter NOMS External Department Unsolicited Efren Merida MD 10/06/2024 Abstract [facility] [address] [place] [address] Unallocated, Kait Mosley MD 10/05/2024 10:10 AM EDT Office Visit [facility] [address] [place] [address] Chele Lopez DPM Ulcer of foot, chronic, right, with necrosis of bone (HCC) (Primary Dx); Diabetes mellitus due to underlying condition with diabetic polyneuropathy, with long-term current use of insulin (HCC) 10/05/2024 Abstract [facility] [address] [place] [address] Chele Lopez DPM 10/05/2024 Telephone [facility] [address] [facility] [address] [place] [address] Chele Lopez DPM Procedure 10/05/2024 Bamboo flowsheet [facility] [address] [place] [address] Chele Lopez DPM from Last 3 Months Immunizations Immunization Administration Dates Next Due Influenza, injectable, quadr ivalent, preservative free 04/26/2022,01/21/2021,12/09/2019,03/10 Influenza, seasonal, injecta ble, preservative free 01/25/2015 Influenza, seasonal, intrade rmal, preservative free 12/30/2012 Pneumococcal Conjugate PCV 13 05/10/2014 Pneumococcal Conjugate PCV 20 04/26/2022 Pneumococcal Polysaccharide PPSV23 05/05/2013 Tdap 11/30/2013 Family History Medical History Relation Name Comments Diabetes Father Hyperlipidemia Father Hypertension Father Diabetes Father's Brother Asthma Mother Leo Breast cancer Mother Leo Cancer Mother Leo Diabetes Paternal Grandfather Hypertension Paternal Grandfather Diabetes Paternal Grandmother Hypertension Paternal Grandmother Relation Name Status Comments Father Alive Father's Brother Mother Leo Paternal Grandfather Paternal Grandmother Social History Tobacco Use Types Packs/Day Years [...] Orientation Straight 10/14/2022 3: 37 PM EDT Last Filed Vital Signs Vital Sign Reading Time Taken Comments Blood Pressure 140/82 02/11/2024 2:04 PM EST Pulse 82 02/11/2024 2:04 PM EST Temperature - - Respiratory Rate 16 01/04/2025 2:25 PM EDT Oxygen Saturation - - Inhaled Oxygen Concentration - - Weight 113 kg (250 lb) 01/04/2025 2:25 PM EDT Height 172.7 cm (5' 8 ) 01/04/2025 2:25 PM EDT Body Mass Index 38.01 01/04/2025 2:25 PM EDT Plan of Treatment Upcoming Encounters Date Type Department Care Team (Late st Contact Info) Description 01/22/2025 1:50 PM EDT Office Visit [facility] [address] [place] [address] Chele Lopez DPM [address] [address] Procedures Procedure Name Priority Date/Time Associated Diagnosis Comments ALL POTASSIUM Routine 11/18/2024 12:03 PM EDT ALL URINALYSIS Routine 11/09/2024 5:10 PM EDT ALL BASIC METABOLIC PANEL Routine 11/09/2024 1:28 PM EDT ALL CBC WITH AUTO DIFF Routine 1:28 PM EDT ECG 12-LEAD 11/09/2024 10:04 AM EDT [facility] VANCOMYCINTROUGH LEVEL Routine 10/22/2024 11:07 AM EDT GLUCOSE POCT GLUCOMETERS Routine 025 11:14 AM EDT [facility] VANCOMYCINTROUGH LEVEL Routine 10/14/2024 10:15 AM EDT TBH CREATININE Routine 10/14/2024 10:15 AM EDT ALL BUN Routine 10/14/2024 10:15 AM EDT ALL CBC WITH AUTO DIFF Routine 11:52 AM EDT [facility] VANCOMYCINTROUGH LEVEL Routine 10/06/2024 11:52 AM EDT ALL BASIC METABOLIC PANEL Routine 10/06/2024 11:52 AM EDT from Last 3 Months Results * ALL POTASSIUM (11/18/2024 12:03 PM EDT) POTASSIUM 5.0 3.5 - 5.1 mmol/L TBH 11/18/2024 12:0 3 PM EDT 11/18/2024 12:44 PM EDT Narrative CLINISYNC - 11/18/2024 1:24 PM EDT [facility] DROP OFF us Efren Merida MD CLINZULEYKA Final Result CLINISYMITCHEL [facility] * (ABNORMAL) ALL URINALYSIS (11/09/2024 5:10 PM EDT) COLOR URINE LT. YELLOW YELLOW TBH CLARITY URINE CLEAR CLEAR TBH SPECIFIC GRAVITY URINE <=1.005(A) 1.005 - 1.025 TBH PH URINE 6.0 5.0 - 9.0 TBH PROTEIN URINE 30(A) NEG/TRACE mg/dL TBH GLUCOSE URINE UA NEGATIVE NEGATIVE mg/dL TBH BILIRUBIN URINE NEGATIVE NEGATIVE TBH KETONES URINE NEGATIVE NEGATIVE mg/dL TBH BLOOD URINE NEGATIVE NEGATIVE TBH NITRITE URINE NEGATIVE NEGATIVE TBH UROBILINOGEN URINE 0.2 0.2 - 1.0 EU/dL TBH LEUKOCYTE ESTERASE URINE NEGATIVE NEGATIVE TB 11/09/2024 5:10 PM EDT 11/09/2024 6:42 PM EDT Narrative CLINISYNC - 11/09/2024 6:55 PM EDT us Efren Merida MD CLINISYMITCHEL Final Result CLINISYCOUNT INCLUDES THE [facility] * (ABNORMAL) ALL CBC WITH AUTO DIFF (11/09/2024 1:28 PM EDT) Only the most recent of2 resultswithin the time period is included. TBH WBC 7.0 4.0 - 11.0 10 3/uL TBH TBH RBC 3.76(L) 4.70 - 6.10 10 6/uL TBH TBH HGB 10.2(L) 14.0 - 18.0 g/dL TBH TBH HCT 31.5(L) 42.0 - 54.0 % TBH TBH MCV 83.8 80.0 - 94.0 fL TBH TBH MCH 27.1 25.9 - 34.0 pg TBH TBH MCHC 32.4 29.9 - 35.2 g/dL TBH TBH RDW 13.9 11.0 - 15.0 % TBH TBH PLT 97(L) 150 - 450 10 3/uL TBH TBH MPV 8.9(L) 9.5 - 13.5 fL TBH NEUTROPHILS PERCENT AUTO 75.2(H) 43.0 - 75.0 % TBH LYMPHOCYTES PERCENT AUTO 15.2(L) 20.5 - 60.0 % TBH MONOCYTES PERCENT AUTO 7.0 1.7 - 12.0 % TBH TBH EO % 2.2 0.9 - 7.0 % TBH BASOPHILS PERCENT AUTO 0.0(L) 0.2 - 2.0 % TBH IMMATURE GRANULOCYTES PCT AUTO 0.4 0.0 - 0.5 % TBH NEUTROPHILS ABSOLUTE AUTO 5.2 1.4 - 6.5 10 3/uL TBH LYMPHOCYTES ABSOLUTE AUTO 1.1(L) 1.2 - 3.8 10 3/uL TBH MONOCYTES ABSOLUTE AUTO 0.5 0.3 - 0.8 10 3/uL TBH TBH EO # 0.2 0.0 - 0.7 10 3/uL TBH BASOPHILS ABSOLUTE AUTO 0.0 0.0 - 0.1 10 3/uL TBH IMMATURE GRANULOCYTES ABS AUTO 0.03 0.00 - 0.03 10 3/uL TBH 11/09/2024 1:28 PM EDT 11/09/2024 1:31 PM EDT Narrative CLINISYNC - 11/09/2024 1:40 PM EDT Bladimir SMILEY CLINISYNH Final Re sult SHAUNNA [facility] * (ABNORMAL) ALL BASIC METABOLIC PANEL (11/09/2024 1:28 PM EDT) Only the most recent of2 resultswithin the time period is included. SODIUM 131(L) 136 - 145 mmol/L TBH POTASSIUM 5.7(H) 3.5 - 5.1 mmol/L TBH CHLORIDE 100 98 - 107 mmol/L TBH CARBON DIOXIDE 23.5 21.0 - 32.0 mmol/L TBH ANION GAP 13.2 TBH GLUCOSE 141(H) 74 - 106 mg/dL TBH BLOOD UREA NITROGEN 51.0(H) 7.0 - 18.0 mg/dL TBH CREATININE 3.35(H) 0.70 - 1.30 mg/dL TBH TBH EGFR-AF EGYPTIAN 23(L) >=60 mL/min/1.7 3m 2 TBH TBH EGFR-NON AF EGYPTIAN 19(L) >=60 mL/min/1.7 3m 2 TBH BUN CREATININE RATIO 15.2 TBH CALCIUM 8.8 8.5 - 10.1 mg/dL TBH 11/09/2024 1:28 PM EDT 11/09/2024 1:31 PM EDT Narrative CLINISYNC - 11/09/2024 1:56 PM EDT Bladimir SMILEY CLINISYNC Final Re sult CLINISYNC TBH * ECG 12-LEAD (11/09/2024 10:04 AM EDT) Anatomical Region Laterality Modality Other 11/09/2024 10:0 4 AM EDT Narrative 11/10/2024 1:53 [place] [address] Electrocardiograph Report Signed Patient: TOMAS SHERMAN Sr. MR#: [id number] : 1965 Acct:[id number] Age/Sex: 59 / M ADM Date: 11/09/24 Loc: CARD Attending Dr: Non-Staff Physician Phuc Ordering Physician: CHELE LOPEZ Date of Service: 11/09/24 Procedure(s): ECG 12 lead Accession Number(s): [id number] cc: [facility] Test Date: 2024-11-09 Pat Name: TOMAS SHERMAN Department: Room: - Gender: Male Note Specialist: : 1965 Requested By: EFREN MERIDA Order Number: [id number] Reading MD: RIMA TERESA M.D. Measurements Intervals [place] Rate: 51 P: 68 KS: 171 QRS: 73 QRSD: 89 T: 8 QT: 448 QTc: 414 Interpretive Statements SINUS BRADYCARDIA LOW QRS VOLTAGE IN PRECORDIAL LEADS [QRS DEFLECTION < 1.0 mV IN CHEST LEADS] POSSIBLE ANTERIOR MYOCARDIAL INFARCTION [30 ms Q WAVE IN V3/V4, OR R < 0.2 mV IN V4], PROBABLY OLD Abnormal ECG Compared to ECG 04/20/2021 10:28:43 Low QRS voltage now present Myocardial infarct finding now present Sinus rhythm no longer present Electronically Signed On 11-10-2024 13:53:10 EDT by RIMA TERESA M.D. Dictated By: RIMA TERESA Signed By: 11/10/24 1353 11/10/24 1353 DD/ 1004 TD/TT: [place] Consultant: Procedure Note Radiology, Radiologist, - 11/10/2024 The [place] [id number] Electrocardiograph Report Signed Patient: TOMAS SHERMAN Sr.MR#: [id number] : 1965Acct:[id number] Age/Sex: 59 / MADM Date: 11/09/24 Loc: CARD Attending Dr: Non-Staff Physician Phuc Ordering Physician: CHELE LOPEZ Date of Service: 11/09/24 Procedure(s): ECG 12 lead Accession Number(s): [id number] cc: [facility] Test Date: 2024-11-09 Pat Name: TOMAS SHERMAN Department: Room: - Gender: Male Note Specialist: : 1965 Requested By: EFREN MERIDA Order Number: [id number] Reading MD: RIMA TERESA M.D. Measurements Intervals [place] Rate: 51 P: 68 KS: 171 QRS: 73 QRSD: 89 T: 8 QT: 448 QTc: 414 Interpretive Statements SINUS BRADYCARDIA LOW QRS VOLTAGE IN PRECORDIAL LEADS [QRS DEFLECTION < 1.0 mV IN CHESTLEADS] POSSIBLE ANTERIOR MYOCARDIAL INFARCTION [30 ms Q WAVE IN V3/V4, OR R < 0.2mV IN V4], PROBABLY OLD Abnormal ECG Compared to ECG 04/20/2021 10:28:43 Low QRS voltage now present Myocardial infarct finding now present Sinus rhythm no longer present Electronically Signed On 11-10-2024 13:53:10 EDT by RIMA TERESA M.D. Dictated By: RIMA TERESA Signed By:11/10/24 1353 11/10/24 1353 DD/ 1004 TD/TT: [place] Consultant: us Generic External Data Provider CLINISYNC IMAGING Final Result * [facility] VANCOMYCINTROUGH LEVEL (10/22/2024 11:07 AM EDT) Only the most recent of3 resultswithin the time period is included. VANCOMYCIN TROUGH 14.6 5.0 - 20.0 ug/mL TBH 10/22/2024 11:0 7 AM EDT 10/22/2024 11:29 AM EDT Narrative CLINISYNC - 10/22/2024 12:21 PM EDT [facility] DROP OFF Efren MAZA Final Result Performing Organization Address [facility] de Phone Number CLINISYNC [facility] * GLUCOSE POCT GLUCOMETERS (10/14/2024 11:14 AM EDT) Pathologist [facility] GLUCOSE POC GLUCOMETERS 182 mg/dL 10/14/2024 11:20 AM EDT [facility] Comment: Random Glucose Reference Range is dependent on time and content of last meal. Glucose of more than 200 mg/dL in a nonstressed, ambulatory subject supports the diagnosis of Diabetes Mellitus. COMMEMT1 Glu2: Cleaned Meter 10/14/2024 11:20 AM EDT [facility] Blood (Blood) 10/14/2024 11: 14 AM EDT 10/14/2024 11:20 AM EDT Chele Lopze DP LAB BLOOD ORDERABLES Final Result Performing Organization Address [facility] de Phone Number [facility] [address] [place] [address], [place] * (ABNORMAL) TBH CREATININE (10/14/2024 10:15 AM EDT) [facility] CREATININE 3.35(H) 0.70 - 1.30 mg/dL TBH TBH EGFR-AF EGYPTIAN 23(L) >=60 mL/min/1.7 3m 2 TBH TBH EGFR-NON AF EGYPTIAN 19(L) >=60 mL/min/1.7 3m 2 TBH 10/14/2024 10:1 5 AM EDT 10/14/2024 10:50 AM EDT Narrative CLINISYNC - 10/14/2024 11:26 AM EDT [facility] DROP OFF Efren MOSERISYNC Final Result Performing Organization Address [facility] Co de Phone Number CLINISYNC [facility] * (ABNORMAL) ALL BUN (10/14/2024 10:15 AM EDT) BLOOD UREA NITROGEN 53.0(H) 7.0 - 18.0 mg/dL TBH 10/14/2024 10:1 5 AM EDT 10/14/2024 10:50 AM EDT Narrative CLINISYNC - 10/14/2024 11:26 AM EDT [facility] DROP OFF Efren Merida MD CLINISYNC Final Result CLINISYNC [facility] from Last 3 Months Insurance [facility] MEDICARE ADVANTAGE MEDICAID [place] Care Teams Tag Marker Relationship Specialty Start Date End Date Portia Land MD [facility] [place] [address] PCP - General Family Medicine 09/13/22
--- OUTSIDE RECORDS SUMMARY | 2025-01-05 15:53 | XMS_ITS | Patient Health Record ---
Author Organization The [facility] [place] Address [address] [place] [address] Care Team Providers Care Oncology Admin Name Role Phone None, Unknown or Primary Care Provider Unavailab le Reason For Referral No Information Plan Of Treatment No Information
--- OUTSIDE RECORDS SUMMARY | 2025-01-05 15:53 | XMS_ITS | Encounter Summary ---
Author Organization [facility] Address [address] [place] [address] Care Team Providers Care Belt Worker Name Role Phone Portia Land MD Primary Care Provider [phone] Encounter Details Date Type Department Care Team (Late st Contact Info) Description 08/23/2024 External Result Encounter [facility] External Department Unsolicited Chele Lopez DPM [address] [address] Social History Tobacco Use Types Packs/Day Years [...] PM EDT Office Visit [facility] [address] [place] [address] Chele Lopez DPM [address] [address] documented as of this encounter Procedures Procedure Name Priority Date/Time Associated Diagnosis Comments CT FOOT RIGHT WO IV CONTRAST 08/23/2024 7:15 PM EDT documented in this encounter Results * CT foot right wo IV contrast (08/23/2024 7:15 PM EDT) Anatomical Region Laterality Modality Lower Extremities, Foot Right Computed Tomography 08/23/2024 7:15 PM EDT Impressions 08/23/2024 7:21 PM EDT Findings are consistent with osteomyelitis of the head of the second and third metatarsals and proximal phalanx of the third digit. Gas is also noted within the joint spaces of the third and fourth metatarsophalangeal joint suggesting septic arthritis. Subcutaneous emphysema is noted along the base of the foot centered along the third toe suspicious for cellulitis and abscess formation. Subcutaneous emphysema extends into the dorsum of the foot along the proximal aspect of the second metatarsal. Impression dictated by: Hadley Rausch M.D. 08/23/2024 7:18 PM Dictation Location: [place] [address] Transcribed By: [facility] 08/23/241917 Dictated By: Hadley Rausch II, MD 08/23/241914 Signed By: <Electronically signed by Hadley Rausch II, MD in OV> 08/23/241917 Narrative 08/23/2024 7:21 PM EDT [facility] [place] [address] [place] [address] CT Scan Report Signed Patient: Tomas Sherman MR#: [id number] : 1965 Acct:[id number] Age/Sex: 58 / M ADM Date: 08/22/24 Loc: Room: [address] [place] [address] Type: ADM IN Attending Dr: Italo Allan MD Copies to: ELDER Armenta MD Ordering Provider: Chele Lopez DPM Date of Service: 08/23/24 CT/CT foot RT wo con: right 3rd metatarsal fracture with OM/abcess/ulcer CT foot RT wo con 08/23/2024 6:34 PM SIGNS AND SYMPTOMS: right 3rd metatarsal fracture with OM/abcess/ulcer TECHNIQUE: Multidetector CT axial slices of the right foot without IV contrast. Multiplanar and 3-D reformats were performed and viewed on a separate workstation and reviewed to further define anatomy and possible pathology. CT was performed with one or more of the following dose reduction techniques: Automated exposure control, adjustment of the mA and/or kV according to patient size, or use of iterative reconstruction technique. COMPARISON: Radiographs from the same date FINDINGS: There is subcutaneous emphysema consistent with an open wound at the base of the third toe extending along the soft tissues to involve the third metatarsophalangeal joint space. Gas is noted within the proximal phalanx of the third toe as well as the head of the second and third metatarsals consistent with osteomyelitis. A small amount of gas is also noted in the fourth metatarsophalangeal joint space suggesting septic arthritis. Subcutaneous emphysema extends along the dorsum of the foot overlying the second metatarsal. The fifth digit is intact. There is a transversely oriented mildly displaced fracture of the distal aspect of the third metatarsal. The first and second digits have been amputated. CT/CT foot RT wo con Procedure Note Hadley Rausch MD - 08/23/2024 [facility] [place] [address] [place] [address] CT Scan Report Signed Patient: Tomas Sherman SrMR#: [id number] : 1965Acct:[id number] Age/Sex: 58 / MADM Date: 08/22/24 Loc: Room: [id number]: ADM IN Attending Dr: Italo Allan MD Copies to: ELDER Armenta MD Ordering Provider: Chele Lopez DPM Date of Service: 08/23/24 CT/CT foot RT wo con: right 3rd metatarsalfracture with OM/abcess/ulcer CT foot RT wo con 08/23/2024 6:34 PM SIGNS AND SYMPTOMS: right 3rd metatarsal fracture with OM/abcess/ulcer TECHNIQUE: Multidetector CT axial slices of the right foot without IVcontrast. Multiplanar and 3-D reformats were performed and viewed on a separate workstation and reviewedto further define anatomy and possible pathology. CT was performed with one or more of the followingdose reduction techniques: Automated exposure control, adjustment of the mA and/or kVaccording to patient size, or use of iterative reconstruction technique. COMPARISON: Radiographs from the same date FINDINGS: There is subcutaneous emphysema consistent with an open wound at the baseof the third toe extending along the soft tissues to involve the third metatarsophalangeal jointspace. Gas is noted within the proximal phalanx of the third toe as well as the head of the secondand third metatarsals consistent with osteomyelitis. A small amount of gas is also noted in thefourth metatarsophalangeal joint space suggesting septic arthritis. Subcutaneousemphysema extends along the dorsum of the foot overlying the second metatarsal. The fifth digitis intact. There is a transversely oriented mildly displaced fracture of the distal aspect ofthe third metatarsal. The first and second digits have been amputated. CT/CT foot RT wo con IMPRESSION: Findings are consistent with osteomyelitis of the head of the second andthird metatarsals and proximal phalanx of the third digit. Gas is also noted within the joint spaces of the third and fourthmetatarsophalangeal joint suggesting septic arthritis. Subcutaneous emphysema is noted along the base of the foot centered alongthe third toe suspicious for cellulitis and abscess formation. Subcutaneous emphysema extends intothe dorsum of the foot along the proximal aspect of the second metatarsal. Impression dictated by: Hadley Rausch M.D. 08/23/2024 7:18 PM Dictation Location: [place] [address] Transcribed By: [facility] 08/23/241917 Dictated By: Hadley Rausch II, MD 08/23/241914 Signed By: <Electronically signed by Hadley Rausch II, MD inOV> 08/23/241917 Chele Lopez DPM IMG CT PROCEDURES Final Res ult documented in this encounter Visit Diagnoses Not on filedocumented in this encounter Care Teams Belt Worker Relationship Specialty Start Date End Date Portia Land MD [address] [facility] [place] [address] PCP - General Family Medicine 6/15/23 documented as of this encounter
--- OUTSIDE RECORDS SUMMARY | 2025-01-05 15:53 | XMS_ITS | Encounter Summary ---
Author Organization [facility] Address [address] [place] [address] Care Team Providers Care Player Development Manager Name Role Phone Portia Land MD Primary Care Provider [phone] Encounter Details Date Type Department Care Team (Late st Contact Info) Description 08/18/2024 Abstract [facility] [address] [place] [phone] Jaylen Head DPM FACFAS [address] [facility] [place] [address] Social History Tobacco Use Types [...] Office Visit [facility] [address] [place] [address] Chele Lopez DPM [address] [facility] [address] [place] [address] documented as of this encounter Visit Diagnoses Not on filedocumented in this encounter Care Teams Player Development Manager Relationship Specialty Start Date End Date Portia Land MD [address] [place] [address] PCP - General Family Medicine 09/13/22 documented as of this encounter
--- OUTSIDE RECORDS SUMMARY | 2025-01-05 15:53 | XMS_ITS | Encounter Summary ---
Author Organization [facility] Address [address] [place] [address] Care Team Providers Care Household Appliances Salesperson Name Role Phone Portia Land MD Primary Care Provider [phone] Encounter Details Date Type Department Care Team (Late st Contact Info) Description 01/29/2024 Abstract [facility] [address] [place] [address] Chele Lopez DPM [address] [address] Social History Tobacco Use Types Packs/Day Years [...] EDT Office Visit [facility] [address] [place] [address] Chele Lopez DPM [address] [address] documented as of this encounter Visit Diagnoses Not on filedocumented in this encounter Care Teams Household Appliances Salesperson Relationship Specialty Start Date End Date Portia Land MD [address] [place] [address] PCP - General Family Medicine 09/13/22 documented as of this encounter
--- OUTSIDE RECORDS SUMMARY | 2025-01-05 15:53 | XMS_ITS | Encounter Summary ---
Author Organization [facility] Address [address] [place] [address] Care Team Providers Care Family Consumer Science Teacher Name Role Phone Portia Land MD Primary Care Provider [phone] Encounter Details Date Type Department Care Team (Late st Contact Info) Description 01/29/2024 Abstract [facility] [address] [place] [address] Chele Lopez DPM [address] [address] Social History Tobacco Use Types Packs/Day Years [...] EDT Office Visit [facility] [address] [place] [address] Chele Lopez DPM [address] [address] documented as of this encounter Visit Diagnoses Not on filedocumented in this encounter Care Teams Family Consumer Science Teacher Relationship Specialty Start Date End Date Portia Land MD [address] [place] [address] PCP - General Family Medicine 09/13/22 documented as of this encounter
--- OUTSIDE RECORDS SUMMARY | 2025-01-05 15:53 | XMS_ITS | Encounter Summary ---
Author Organization [facility] Address [address] [place] [address] Care Team Providers Care Chimney Builder Brick Name Role Phone Portia Land MD Primary Care Provider [phone] Encounter Details Date Type Department Care Team (Late st Contact Info) Description 01/29/2024 External Result Encounter [facility] External Department Unsolicited Chele Lopez DPM [address] [address] Social History Tobacco Use Types Packs/Day Years [...] PM EDT Office Visit [facility] [address] [place] [address] Chele Lopez DPM [address] [address] documented as of this encounter Procedures Procedure Name Priority Date/Time Associated Diagnosis Comments XR FOOT 1-2 VIEWS LEFT 01/29/2024 9:26 PM EDT documented in this encounter Results * XR foot 1 or 2 views left (01/29/2024 9:26 PM EDT) Anatomical Region Laterality Modality Lower Extremities, Foot Left Radiogra phic Imaging 01/29/2024 9:26 PM EDT Impressions 01/29/2024 9:29 PM EDT Transmetatarsal amputation. Impression dictated by: Samuel Owen M.D.01/29/2024 9:27 PM Dictation Location: [place] [address] Transcribed By: [facility] 01/29/242126 Dictated By: Samuel Owen DO 01/29/242125 Signed By: <Electronically signed by Samuel Owen DO in OV> 01/29/242126 Narrative 01/29/2024 9:29 PM EDT [address] [address] XRay Report Signed Patient: Tomas Sherman Sr MR#: [id number] : 1965 Acct:[id number] Age/Sex: 58 / M ADM Date: 01/26/24 Loc: Room: [address] [place] [address] Type: ADM IN Attending Dr: Ricci Murray DO Copies to: DO Chele Zarco DPM Ordering Provider: Chele Lopez DPM Date of Service: 01/29/24 XR/XR foot LT 2V: Left foot TMA 2 views LEFT foot plain film COMPARISON:01/26/24 HISTORY: Transmetatarsal amputation changes ACUTE FINDINGS: None DEGENERATIVE CHANGE: Mild SOFT TISSUE FINDINGS: Postsurgical changes distal foot. JOINT EFFUSION: None POSTOP CHANGES: Unremarkable transmetatarsal amputation. BONE MINERALIZATION: Adequate XR/XR foot LT 2V Procedure Note Radiology, Radiologist, - 01/29/[address] [place] [address] XRay Report Signed Patient: Tomas Sherman SrMR#: [id number] : 1965Acct:[id number] Age/Sex: 58 / MADM Date: 01/26/24 Loc: 4 Room: [id number]: ADM IN Attending Dr: Ricci Murray DO Copies to: DO Chele Zarco DPM Ordering Provider: Chele Lopez DPM Date of Service: 01/29/24 XR/XR foot LT 2V: Left foot TMA 2 views LEFT foot plain film COMPARISON:01/26/24 HISTORY: Transmetatarsal amputation changes ACUTE FINDINGS: None DEGENERATIVE CHANGE: Mild SOFT TISSUE FINDINGS: Postsurgical changes distal foot. JOINT EFFUSION: None POSTOP CHANGES: Unremarkable transmetatarsal amputation. BONE MINERALIZATION: Adequate XR/XR foot LT 2V IMPRESSION: Transmetatarsal amputation. Impression dictated by: Samuel Owen M.D.01/29/2024 9:27 PM Dictation Location: [place] [address] Transcribed By: [facility] 01/29/242126 Dictated By: Saumel Owen DO 01/29/242125 Signed By: <Electronically signed by Samuel Owen DO in OV> 01/29/242126 us Chele Lopez DPM IMG XR PROCEDURES Final Res ult documented in this encounter Visit Diagnoses Not on filedocumented in this encounter Care Teams Chimney Builder Brick Relationship Specialty Start Date End Date Portia Land [place] [address] PCP - General Family Medicine 09/13/22 documented as of this encounter
--- OUTSIDE RECORDS SUMMARY | 2025-01-05 15:55 | XMS_ITS | Encounter Summary ---
Author Organization [facility] Address [address] [place] [address] Care Team Providers Care Room Attendants Name Role Phone Portia Land MD Primary Care Provider [phone] Encounter Details Date Type Department Care Team (Late st Contact Info) Description 10/14/2024 Abstract [facility] [address] [place] [address] Chele Lopez DPM [address] [address] Social History Tobacco Use Types Packs/Day Years [...] EDT Office Visit [facility] [address] [place] [address] Chele Lopez DPM [address] [address] documented as of this encounter Visit Diagnoses Not on filedocumented in this encounter Care Teams Room Attendants Relationship Specialty Start Date End Date Portia Land MD [address] [place] [address] PCP - General Family Medicine 09/13/22 documented as of this encounter
--- OUTSIDE RECORDS SUMMARY | 2025-01-05 15:55 | XMS_ITS | Encounter Summary ---
Author Organization [facility] Address [address] [place] [address] Care Team Providers Care Medical Billing And Coding Instructor Name Role Phone Portia Land MD Primary Care Provider [phone] Encounter Details Date Type Department Care Team (Late st Contact Info) Description 08/25/2024 External Result Encounter [facility] External Department Unsolicited Chele Lopez DPM [address] [address] Social History Tobacco Use Types Packs/Day Years [...] PM EDT Office Visit [facility] [address] [place] [address] Chele Lopez DPM [address] [address] documented as of this encounter Procedures Procedure Name Priority Date/Time Associated Diagnosis Comments XR FOOT 3+ VIEWS RIGHT 08/25/2024 9:13 PM EDT documented in this encounter Results * XR foot 3+ views right (08/25/2024 9:13 PM EDT) Anatomical Region Laterality Modality Lower Extremities, Foot Right Radiogra phic Imaging 08/25/2024 9:13 PM EDT Impressions 08/25/2024 9:20 PM EDT Interval amputation of the distal forefoot Impression dictated by: Sen Montanez M.D. 08/25/2024 9:17 PM Dictation Location: [facility] Transcribed By: [facility] 08/25/242116 Dictated By: Sen Montanez MD 08/25/242112 Signed By: <Electronically signed by Sen Montanez MD in OV> 08/25/242116 Narrative 08/25/2024 9:20 PM EDT [address] [address] XRay Report Signed Patient: Tomas Sherman Sr MR#: [id number] : 1965 Acct:[id number] Age/Sex: 58 / M ADM Date: 08/22/24 Loc: Room: [address] [place] [address] Type: ADM IN Attending Dr: Ricci Murray DO Copies to: DO Chele Zarco DPM Ordering Provider: Chele Lopez DPM Date of Service: 08/25/24 XR/XR foot RT min 3V*: right TMA post op Right foot, 3 views CLINICAL HISTORY: Amputation: Postop COMPARISON: CT foot 08/23/2024 FINDINGS: Interval amputation through the first through fifth distal metatarsals. Surgical margins are sharp. Posterior changes within the adjacent soft tissues. XR/XR foot RT min 3V* Procedure Note Radiology, Radiologist, - 08/25/[address] [address] XRay Report Signed Patient: Tomas Sherman SrMR#: [id number] : 1965Acct:[id number] Age/Sex: 58 / MADM Date: 08/22/24 Loc: Room: [id number]: ADM IN Attending Dr: Ricci Murray DO Copies to: DO Chele Zarco DPM Ordering Provider: Chele Lopez DPM Date of Service: 08/25/24 XR/XR foot RT min 3V*: right TMA post op Right foot, 3 views CLINICAL HISTORY: Amputation: Postop COMPARISON: CT foot 08/23/2024 FINDINGS: Interval amputation through the first through fifth distal metatarsals.Surgical margins are sharp. Posterior changes within the adjacent soft tissues. XR/XR foot RT min 3V* IMPRESSION: Interval amputation of the distal forefoot Impression dictated by: Sen Montanez M.D. 08/25/2024 9:17 PM Dictation Location: [facility]- Transcribed By: [facility] 08/25/242116 Dictated By: Sen Montanez MD 08/25/242112 Signed By: <Electronically signed by Sen Montanez MD in OV> 08/25/242116 Chele Lopez DPM IMG XR PROCEDURES Final Res ult documented in this encounter Visit Diagnoses Not on filedocumented in this encounter Care Teams Medical Billing And Coding Instructor Relationship Specialty Start Date End Date Portia Land MD [address] [place] [address] PCP - General Family Medicine 09/13/22 documented as of this encounter
--- OUTSIDE RECORDS SUMMARY | 2025-01-05 15:55 | XMS_ITS | Encounter Summary ---
Author Organization [facility] Address [address] [place] [address] Care Team Providers Care Pharmaceutical Worker Name Role Phone Portia Land MD Primary Care Provider [phone] Encounter Details Date Type Department Care Team (Late st Contact Info) Description 10/12/2024 Abstract [facility] [address] [place] [address] Chele Lopez DPM [address] [address] Social History Tobacco Use Types Packs/Day Years [...] EDT Office Visit [facility] [address] [place] [address] Chele Lopez DPM [address] [address] documented as of this encounter Visit Diagnoses Not on filedocumented in this encounter Care Teams Pharmaceutical Worker Relationship Specialty Start Date End Date Portia Land MD [address] [place] [address] PCP - General Family Medicine 09/13/22 documented as of this encounter
--- OUTSIDE RECORDS SUMMARY | 2025-01-05 15:55 | XMS_ITS | Encounter Summary ---
Author Organization [facility] Address [address] [place] [address] Care Team Providers Care Band Saw Filer Name Role Phone Portia Land MD Primary Care Provider [phone] Encounter Details Date Type Department Care Team (Late st Contact Info) Description 08/31/2024 Abstract [facility] [address] [place] [address] Chele Lopez DPM [address] [address] Social History Tobacco Use Types Packs/Day Years [...] EDT Office Visit [facility] [address] [place] [address] Chele Lopez DPM [address] [address] documented as of this encounter Visit Diagnoses Not on filedocumented in this encounter Care Teams Band Saw Filer Relationship Specialty Start Date End Date Portia Land MD [address] [place] [address] PCP - General Family Medicine 09/13/22 documented as of this encounter
--- OUTSIDE RECORDS SUMMARY | 2025-01-05 15:55 | XMS_ITS | Encounter Summary ---
Author Organization [facility] Address [address] [place] [address] Care Team Providers Care Professor Of Genetics Name Role Phone Portia Land MD Primary Care Provider [phone] Encounter Details Date Type Department Care Team (Late st Contact Info) Description 10/06/2024 Abstract [facility] [address] [place] [phone] Unallocated, [facility] Provider, [address] [place] [address] Social History Tobacco Use Types Packs/Day Years [...] EDT Office Visit [facility] [address] [place] [address] Chele Lopez DPM [address] [address] documented as of this encounter Visit Diagnoses Not on filedocumented in this encounter Care Teams Professor Of Genetics Relationship Specialty Start Date End Date Portia Land MD [address] [place] [address] PCP - General Family Medicine 09/13/22 documented as of this encounter
--- OUTSIDE RECORDS SUMMARY | 2025-01-05 15:55 | XMS_ITS | Encounter Summary ---
Author Organization [facility] Address [address] [place] [address] Care Team Providers Care Comber Fixer Name Role Phone Portia Land MD Primary Care Provider [phone] Encounter Details Date Type Department Care Team (Late st Contact Info) Description 09/30/2024 Abstract [facility] [address] [place] [address] Chele Lopez DPM [address] [address] Social History Tobacco Use Types Packs/Day Years [...] EDT Office Visit [facility] [address] [place] [address] Chele Lopez DPM [address] [address] documented as of this encounter Visit Diagnoses Not on filedocumented in this encounter Care Teams Comber Fixer Relationship Specialty Start Date End Date Portia Land MD [address] [place] [address] PCP - General Family Medicine 09/13/22 documented as of this encounter
--- OUTSIDE RECORDS SUMMARY | 2025-01-05 15:55 | XMS_ITS | Encounter Summary ---
Author Organization [facility] Address [address] [place] [address] Care Team Providers Care Document Clerk Name Role Phone Portia Land MD Primary Care Provider [phone] Encounter Details Date Type Department Care Team (Late st Contact Info) Description 08/25/2024 Abstract [facility] [address] [place] [address] Chele Lopez DPM [address] [address] Social History Tobacco Use Types Packs/Day Years [...] EDT Office Visit [facility] [address] [place] [address] Chele Lopez DPM [address] [address] documented as of this encounter Visit Diagnoses Not on filedocumented in this encounter Care Teams Document Clerk Relationship Specialty Start Date End Date Portia Land MD [address] [place] [address] PCP - General Family Medicine 09/13/22 documented as of this encounter
--- OUTSIDE RECORDS SUMMARY | 2025-01-05 15:55 | XMS_ITS | Encounter Summary ---
Author Organization [facility] Address [address] [place] [address] Care Team Providers Care Material Mixer Name Role Phone Portia Land MD Primary Care Provider [phone] Encounter Details Date Type Department Care Team (Late st Contact Info) Description 10/05/2024 Abstract [facility] [address] [place] [address] Chele Lopez DPM [address] [address] Social History Tobacco Use Types Packs/Day Years [...] EDT Office Visit [facility] [address] [place] [address] Chele Lopez DPM [address] [address] documented as of this encounter Visit Diagnoses Not on filedocumented in this encounter Care Teams Material Mixer Relationship Specialty Start Date End Date Portia Land MD [address] [place] [address] PCP - General Family Medicine 09/13/22 documented as of this encounter
--- OUTSIDE RECORDS SUMMARY | 2025-01-05 15:56 | XMS_ITS | Encounter Summary ---
Author Organization [facility] Address [address] [place] [address] Care Team Providers Care Grinding Wheel Facer Name Role Phone Portia Land MD Primary Care Provider [phone] Encounter Details Date Type Department Care Team (Late Contact Info) Description 11/13/2024 Abstract [facility] [address] [place] [address] Chele Lopez DPM [address] [address] Social History Tobacco Use Types Packs/Day Years [...] EDT Office Visit [facility] [address] [place] [address] Chele Lopez DPM [address] [address] documented as of this encounter Visit Diagnoses Not on filedocumented in this encounter Care Teams Grinding Wheel Facer Relationship Specialty Start Date End Date Portia Land MD [address] [place] [address] PCP - General Family Medicine 09/13/22 documented as of this encounter
--- OUTSIDE RECORDS SUMMARY | 2025-01-05 15:56 | XMS_ITS | Encounter Summary ---
Author Organization [facility] Address [address] [place] [address] Care Team Providers Care Almond Pan Finisher Name Role Phone Portia Land MD Primary Care Provider [phone] Encounter Details Date Type Department Care Team (Late st Contact Info) Description 11/02/2024 Abstract [facility] [address] [facility] 120 [place] [address] Chele Lopez DPM [address] [address] Social History Tobacco Use Types Packs/Day Years [...] EDT Office Visit [facility] 3[address] [place] [address] Chele Lopez DPM [address] [address] documented as of this encounter Visit Diagnoses Not on filedocumented in this encounter Care Teams Almond Pan Finisher Relationship Specialty Start Date End Date Portia Land MD [address] [place] [address] PCP - General Family Medicine 09/13/22 documented as of this encounter
--- OUTSIDE RECORDS SUMMARY | 2025-01-05 15:56 | XMS_ITS | Encounter Summary ---
Author Organization [facility] Address [address] [place] [address] Care Team Providers Care Harvest Worker Fruit Name Role Phone Portia Land MD Primary Care Provider [phone] Encounter Details Date Type Department Care Team (Late Contact Info) Description 12/28/2024 Bamboo flowsheet [facility] 3[address] [place] [address] Chele Lopez DPM [address] [address] Social History Tobacco Use Types Packs/Day Years [...] EDT Office Visit [facility] [address] [place] [address] Chele Lopez DPM [address] [address] documented as of this encounter Visit Diagnoses Not on filedocumented in this encounter Care Teams Harvest Worker Fruit Relationship Specialty Start Date End Date Portia Land MD [address] [place] [address] PCP - General Family Medicine 09/13/22 documented as of this encounter
--- OUTSIDE RECORDS SUMMARY | 2025-01-05 15:56 | XMS_ITS | Encounter Summary ---
Author Organization [facility] Address [address] [place] [address] Care Team Providers Care Medical Manager Name Role Phone Portia Land MD Primary Care Provider [phone] Encounter Details Date Type Department Care Team (Late st Contact Info) Description 09/15/2024 Abstract [facility] 112 [facility] 120 [place] [address] Chele Lopez DPM [address] [address] Social History Tobacco Use Types Packs/Day Years [...] EDT Office Visit [facility] 3[address] [place] [address] Chele Lopez DPM [address] [address] documented as of this encounter Visit Diagnoses Not on filedocumented in this encounter Care Teams Medical Manager Relationship Specialty Start Date End Date Portia Land MD [address] [place] [address] PCP - General Family Medicine 09/13/22 documented as of this encounter
--- OUTSIDE RECORDS SUMMARY | 2025-01-05 15:56 | XMS_ITS | Patient Health Record ---
Author Organization [facility] Address [address] [place] [address] Care Team Providers Care Party Host/Hostess Name Role Phone Sp Arguelles Primary Care Provider Marco Antonio Edmondson Unavailable Gris Yoder Unavailable [phone] Sada Yadav Unavailable [phone] Ewelina Robledo Unavailable [phone] Allergies No Known Allergies Results Component Value Reference Range Notes Hemoglobin A1c Reviewed date:02/11/2024 11:50:30 AM Interpretation:7.5 Performing Lab: Notes/Report: 7.5 Hemoglobin A1c 7.5 5 - 7.9 % Hemoglobin A1c Reviewed date:05/13/2024 01:38:17 PM Interpretation:7.1 Performing Lab: Notes/Report: 7.1 Hemoglobin A1c 7.1 5 - 7.9 % Reason For Referral Reason counseling services 02/13/2024 Scheduled Diagnosis 1 Anxiety, generalized (F41.1) Referral Organization [facility] Referring Provider First Name Sp Referring Provider Last Name Blane Referring Provider Speciality [facility] Referred Provider Specialty [facility] Referral Priority Routine Medications Medication SIG (Take, [...] a day; Duration: 90 days Active Pen Bixby 08/14 31G X 8 MM with insulin subcutaneous [...] ulcer due to type 2 diabetes mellitus (5506075111862) Type 2 diabetes mellitus with foot ulcer (E11.621) Active confirmed Problem Dermopathy due to type 2 diabetes mellitus (disorder) (6179223609097) Type 2 diabetes mellitus with other skin complications (E11.628) Active confirmed Problem Hyperkalemia (92032533) Hyperkalemia (E87.5) Active confirmed Problem Tobacco user (552503296) Nicotine dependence, unspecified, uncomplicated (F17.200) Active confirmed Problem Severe mixed bipolar I disorder without psychotic features (63606758) Bipolar disorder, current episode mixed, severe, without psychotic features (F31.63) Active confirmed Problem Tobacco use (531995003) Tobacco use (Z72.0) Active confirmed Problem Anxiety (27756323) Anxiety (F41.9) Active confi rmed Problem Gastroesophageal reflux disease (disorder) (546028425) Chronic GERD (K21.9) Active confirmed Problem COPD - Chronic obstructive pulmonary disease (73242443) Chronic obstructive pulmonary disease, unspecified COPD type (J44.9) Active confirmed Problem Attention deficit hyperactivity disorder (715049669) Attention deficit hyperactivity disorder (ADHD), unspecified ADHD type (F90.9) Active confirmed Problem Primary hypertension (94688498) Primary hypertension (I10) Active confirmed Problem Acute exacerbation of chronic obstructive airways disease (607122115) COPD exacerbation (J44.1) Active confirmed Problem Bipolar disorder (66478915) Bipolar affective disorder, remission status unspecified (F31.9) Active confirmed Problem Chronic kidney disease stage 4 (182478077) Stage 4 chronic kidney disease (N18.4) Active confirmed Problem Diabetic peripheral neuropathy associated with type 2 diabetes mellitus (8409573813322) Type 2 diabetes mellitus with diabetic neuropathy, without long-term current use of insulin (E11.40) Active confirmed Problem Non-pressure chronic ulcer of other part of unspecified foot with muscle involvement without evidence of necrosis (L97.505) Active confirmed Problem History of diabetic foot ulcer (situation) (90713368639627261) History of diabetic ulcer of foot (Z86.31) Active confirmed Problem Generalized anxiety disorder (41054978) Anxiety, generalized (F41.1) Active confirmed Problem Chronic kidney disease stage 3 (disorder) (638441013) Stage 3 chronic kidney disease, unspecified whether stage 3a or 3b CKD (N18.30) Active confirmed Problem Acute postoperative pain (217379919608065) Acute postoperative pain (G89.18) Active confirmed Problem Postoperative wound infection (08358011) Postoperative wound infection (T81.49XA) Active confirmed Vital Signs Heart Rate 86 /min 05/13/2024 Temperature 97.2 degrees Fahrenheit 05/13/2024 Respiratory Rate 18 /min 05/13/2024 Blood pressure diastolic 69 mm Hg 05/13/2024 Oximetry 94 % 05/13/2024 Height 68 in 05/13/2024 Blood pressure systolic 162 mm Hg 05/13/2024 Weight 257.2 lbs 05/13/2024 BMI 39.1 kg/m2 05/13/2024 Encounters Encounter Location Date Provider Diagnosis [facility] [address] [place] [address] 01/16/2024 Sp Arguelles [facility] [address] [place] [address] 02/20/2024 Sp Arguelles Chronic obstructive pulmonary disease, unspecified COPD type J44.9 and Bipolar disorder, current episode mixed, severe, without psychotic features F31.63 [facility] [place] [address] 03/04/2024 Sp Arguelles Acute cough R05.1 [facility] [place] [address] 03/12/2024 Sp Arguelles [place] [address] [place] [place] [address] 03/13/2024 Sp Arguelles [place] [address] [place] [address] 04/20/2024 Sp Arguelles [facility] [address] [place] [place] [address] 04/27/2024 Sp Arguelles [facility] [place] [address] 05/01/2024 Sp Arguelles Primary hypertension I10 [facility] [place] [address] 05/04/2024 Sp Arguelles [facility] [place] [address] 05/11/2024 Sp Arguelles [facility] [address] [place] [address] 05/22/2024 Sp Arguelles [facility] [place] [address] [place] [address] 06/09/2024 Sp Arguelles Primary hypertension I10 [facility] [address] [place] [address] 07/16/2024 Sp Arguelles Primary hypertension I10 [facility] [address] [place] [address] 08/14/2024 Sp Blane Lethargy R53.83 and Abnormal breath sounds R09.[address] [facility] [address] [place] [address] 08/20/2024 Sp Arguelles [facility] [address] [place] [address] 09/01/2024 Sp Blane [facility] [address] [place] [address] 09/08/2024 Sp Blane Acute diarrhea R19.7 [facility] [place] [address] 09/10/2024 Sp Blane Diarrhea, unspecifie d type R19.[address] [place] [address] [place] [address] 10/26/2024 Sp Blane [facility] [address] [place] [address] 10/29/2024 Sp Arguelles [facility] [address] [place] [address] 02/11/2024 Sp Blane Type 2 diabetes mellitus with diabetic neuropathy, without long-term current use of insulin E11.40 ; Anxiety, generalized F41.1 and Chronic obstructive pulmonary disease, unspecified COPD type J44.9 [facility] [address] [place] [address] 05/13/2024 Sp Blane Type 2 diabetes mellitus with diabetic neuropathy, without long-term current use of insulin E11.40 ; Primary hypertension I10 ; COPD exacerbation J44.1 ; Candidal dermatitis B37.2 and Reducible umbilical hernia K42.9 Assessments Encounter Date Diagnosis (ICD Code) Assessment Notes Treatment Notes Treatment Clinical Notes Section Notes 02/11/2024 Type 2 diabetes mellitus with diabetic [...] No current threat to self or others. 03/04/2024 Acute cough (ICD-10 - R05.1) 05/01/2024 Primary hypertension (ICD-10 - I10) 08/14/2024 Lethargy (ICD-10 - R53.83) 08/14/2024 Abnormal breath sounds (ICD-10 - R09.89) 06/09/2024 Primary hypertension (ICD-10 - I10) 09/10/2024 Diarrhea, unspecified type (ICD-10 - R19.7) 09/08/2024 Acute diarrhea (ICD-10 - R19.7) 07/16/2024 Primary hypertension (ICD-10 - I10) 05/13/2024 Primary hypertension (ICD-10 - I10) Patient blood pressure elevated but has been off his losartan. We discussed restarting medication and reevaluation at follow-up. Signs and symptoms that warrant return to clinic were discussed. Signs and symptoms that would warrant going to the nearest ER or calling 911 were also discussed. 05/13/2024 Type 2 diabetes mellitus with diabetic neuropathy, without long-term current use of insulin (ICD-10 - E11.40) Patient with A1c at 7.1% today. He is in need of some weight loss prior to surgery for his umbilical hernia. Current insulin is likely inhibiting his weight loss. We did discuss starting Ozempic and titration schedule for this today. 02/20/2024 Chronic obstructive pulmonary disease, unspecified COPD type (ICD-10 - J44.9) 02/20/2024 Bipolar disorder, current episode mixed, severe, [...] disease, unspecified COPD type (ICD-10 - J44.9) 05/13/2024 Candidal dermatitis (ICD-10 - B37.2) Patient [...] XR chest 2V* 08/14/2024 Clostridium Difficile 09/08/2024 Insurance Providers Payer Name Payer Address Payer Phone Subscriber Number Group Number Insured Name Patient Relationship to Insured Coverage Start Date Coverage End Date [employer] MEDICARE PLAN [address] [address] [place] [address] [id number] SEBASTIAN PIEDRA Self - patient is the insured 3 MEDICAID SEC TO [facility] [address] [place] [address] [id number] SEBASTIAN PIEDRA Self - patient is the insured 3 [employer] -termed 22 [address] [place] [address] [id number] SEBASTIAN PIEDRA Self - patient is the insured 2 3 [facility] after [employer]- termed 22 [address] [place] [address] [id number] SEBASTIAN PIEDRA Self - patient is the insured 2 3 zBH [employer]- termed 22 [address] [place] [address] [id number] SEBASTIAN PIEDRA Self - patient is the insured 2 3 [facility] MEDICAID CFC after [employer]- termed 22 [address] [place] [address] [phone] [id number] PIEDRA, SEBASTIAN Self - patient is the insured 2 3 [employer] [place] Medicaid [address] [place] [address] [id number] SEBASTIAN PIEDRA Self - patient is the insured 3 3 [facility] [address] [place] [address] [id number] SEBASTIAN PIEDRA Self - patient is the insured 3 3 [facility] [employer] [place] Medicaid [address] [place] [address] [id number] SEBASTIAN PIEDRA Self - patient is the insured 3 3 [facility] [address] [place] [address] [id number] SEBASTIAN PIEDRA Self - patient is the insured 3 3 MEDICARE CGS 1 [facility] [place] [address] [id number] SEBASTIAN PIEDRA Self - patient is the insured 3 BH MEDICAID SEC TO [facility] [address] [place] [address] [id number] SEBASTIAN PIEDRA Self - patient is the insured 3 Medical (General) History Medical History History ICD Code Hypertension Type 2 diabetes mellitus Anxiety ADHD Congestive Heart Failure COPD Hard of Hearing bipolar obesity, morbid Esophageal reflux Stage 4 Kidney disease Depression Bilateral toe amputation (diabetic ketoa cidosis) neuropathy Surgical History Surgery Date(Month/Year) Small toe amputation on left foot 1 second toe on left foot amputation 2016 I and D Groin area x4 colonoscopy 01/2022 Lt. Arm Fistula 10/04/2022 bilateral toe amputation ( diabetic keto acidosis) 05/2023 Hospitalization History Reason Date(Month/Year) UTI 07/2023 Diabetic ketoacidosis ( 10 days) 07/2023 Low Sodium in blood, kidney problems, to e amputation 12/2020-03/2021
--- OUTSIDE RECORDS SUMMARY | 2025-01-05 15:56 | XMS_ITS | Encounter Summary ---
Author Organization [facility] Address [address] [place] [address] Care Team Providers Care Dev Manager Name Role Phone Portia Land MD Primary Care Provider [phone] Encounter Details Date Type Department Care Team (Late st Contact Info) Description 09/17/2024 Abstract [facility] [address] [place] [address] Chele Lopez DPM [address] [address] Social History Tobacco Use Types Packs/Day Years [...] EDT Office Visit [facility] [address] [place] [address] Chele Lopez DPM [address] [address] documented as of this encounter Visit Diagnoses Not on filedocumented in this encounter Care Teams Dev Manager Relationship Specialty Start Date End Date Portia Land MD [address] [place] [address] PCP - General Family Medicine 09/13/22 documented as of this encounter
--- OUTSIDE RECORDS SUMMARY | 2025-01-05 15:56 | XMS_ITS | Encounter Summary ---
Author Organization [facility] Address [address] [place] [address] Care Team Providers Care Outsole Cementer Machine Name Role Phone Portia Land MD Primary Care Provider [phone] Encounter Details Date Type Department Care Team (Late st Contact Info) Description 09/24/2024 Abstract [facility] [address] [place] [address] Chele Lopez DPM [address] [address] Social History Tobacco Use Types Packs/Day Years [...] EDT Office Visit [facility] [address] [place] [address] Chele Lopez DPM [address] [address] documented as of this encounter Visit Diagnoses Not on filedocumented in this encounter Care Teams Outsole Cementer Machine Relationship Specialty Start Date End Date Portia Land MD [address] [place] [address] PCP - General Family Medicine 09/13/22 documented as of this encounter
--- OUTSIDE RECORDS SUMMARY | 2025-01-05 15:56 | XMS_ITS | Encounter Summary ---
Author Organization [facility] Address [address] [place] [address] Care Team Providers Care Phonograph Cartridge Assembler Name Role Phone Portia Land MD Primary Care Provider [phone] Encounter Details Date Type Department Care Team (Late Contact Info) Description 11/23/2024 Abstract [facility] 112 [facility] 120 [place] [address] Chele Lopez DPM [address] [address] Social History Tobacco Use Types Packs/Day Years [...] EDT Office Visit [facility] 3006 [place] [address] Chele Lopez DPM [address] [address] documented as of this encounter Visit Diagnoses Not on filedocumented in this encounter Care Teams Phonograph Cartridge Assembler Relationship Specialty Start Date End Date Portia Land MD [address] [place] [address] PCP - General Family Medicine 09/13/22 documented as of this encounter
--- OUTSIDE RECORDS SUMMARY | 2025-01-05 15:56 | XMS_ITS | Encounter Summary ---
Author Organization [facility] Address [address] [place] [address] Care Team Providers Care Mobile Heavy Equipment Operator Name Role Phone Portia Land MD Primary Care Provider [phone] Encounter Details Date Type Department Care Team (Late st Contact Info) Description 12/22/2024 Abstract [facility] 112 [facility] 120 [place] [address] Chele Lopez DPM [address] [address] Social History Tobacco Use Types Packs/Day Years [...] EDT Office Visit [facility] [address] [place] [address] Chele Lopez DPM [address] [address] documented as of this encounter Visit Diagnoses Not on filedocumented in this encounter Care Teams Mobile Heavy Equipment Operator Relationship Specialty Start Date End Date Portia Land MD [address] [place] [address] PCP - General Family Medicine 09/13/22 documented as of this encounter
--- OUTSIDE RECORDS SUMMARY | 2025-01-05 15:56 | XMS_ITS | Encounter Summary ---
Author Organization [facility] Address [address] [place] [address] Care Team Providers Care Computer Instructor Name Role Phone Portia Land MD Primary Care Provider [phone] Reason for Visit * Reason Onset Date Comments Procedure 2024 Encounter Details Date Type Department Care Team ([facility] st Contact Info) Description 2024 Telephone [facility] 112 [facility] 120 [place] [address] Chele Lopez DPM 3008 [facility] [place] [address] Procedure Social History Tobacco Use Types Packs/Day [...] encounter Miscellaneous Notes * Telephone Encounter - Ewelina Gracia - 11/11/2024 1:56 PM EDT POST OP APPOINTMENT MADE * Telephone Encounter - Chele Lopez DPM - 11/11/2024 1:27 PM EDT yes * Telephone Encounter - Ewelina Gracia - 11/11/2024 1:19 PM EDT Is it okay to schedule patient for the Saturday you come back to office? * Telephone Encounter - Ewelina Gracia - 11/10/2024 1:58 PM EDT Harry from anesthesia said that patient is unable to have anesthesia due to recent abnormal lab values, but they could do under a local. After talking to Dr. Lopez, he is okay with proceeding with local. I spoke to patient and patient is okay with proceeding with procedure under local as well. * Telephone Encounter - Ewelina Gracia - 11/09/2024 4:27 PM EDT Labs were uploaded to [facility] portal, awaiting EKG. * Telephone Encounter - Ewelina Gracia - 11/05/2024 10:40 AM EDT Per call with [employer] @ [phone] with Patrick, policy is active and [facility] and [facility] are innetwork. Patient has no individual deductible and has met 3,622.7 of 4,700 oop with no co insurance. Code 02275 does not require prior authorization. Reference#: [id number] Patient is currently resident at [facility]. I spoke with nurse there and they have an inhouse CRAYON SAWYER that is going to clear patient. Clearance letter was faxed. PST is scheduled for 11/09 at 12:30 at [facility]. Surgery scheduled on both portals. Demographics, insurance card, office notes and sx form uploaded to [facility] portal. * Telephone Encounter - Ewelina Gracia - 11/04/2024 3:34 PM EDT Called [facility], their warehouse receiving supervisor is going to call me back tomorrow to schedule PST and clearance from in house doctor. We are trying to schedule him next Saturday in a cancellation spot. * Telephone Encounter - Chele Lopez DPM - 11/02/2024 8:36 AM EDT Yes. Or in a few weeks. Somebody may fall off in the next week or 2 can have him on standby * Telephone Encounter - Ewelina Gracia - 11/02/2024 7:52 AM EDT You are full this week and next for surgery center. He is usually done at [facility], just clarifying youstill want it at the sx center? * Telephone Encounter - Chele Lopez DPM - 2024 3:07 PM EDT HOSPITAL[facility] DATE-- next 2 weeks PCP: patient [facility], need to call them, PCP is Gia Arguelles at [facility] WITH PROCEDURES 1) right foot ulcerative subcutaneous tissue with type 2 diabetes with split- thickness skin graft L97.512/E08.42/76733--mwymwt procedure Approximate case length:45 min SPECIAL NEEDS FOR CASE-- : dermatome PT CRUTCH OR WALKER TRAINING NEEDED? NO WEIGHT BEARING STATUS-- nwb Percocet documented in this encounter Plan of Treatment Upcoming Encounters Date Type Department Care Team (Late st Contact Info) Description 01/22/2025 1:50 PM EDT Office Visit [facility] [address] [place] [address] Cehle Lopez DPM [address] [address] documented as of this encounter Visit Diagnoses Diagnosis Diabetes mellitus due to underlying condition with diabetic polyneuropathy, with long-term current use of insulin (HCC)- Primary Foot ulcer, right, with fat layer exposed (HCC) documented in this encounter Care Teams Computer Instructor Relationship Specialty Start Date End Date Portia Land MD [address] [place] [address] PCP - General Family Medicine 09/13/22 documented as of this encounter
--- OUTSIDE RECORDS SUMMARY | 2025-01-05 15:56 | XMS_ITS | Encounter Summary ---
Author Organization [facility] Address [address] [place] [address] Care Team Providers Care Steam Shovel Engineer Name Role Phone Portia Land MD Primary Care Provider [phone] Encounter Details Date Type Department Care Team (Late st Contact Info) Description 09/21/2024 Abstract [facility] [address] [place] [address] Chele Lopez DPM [address] [address] Social History Tobacco Use Types Packs/Day Years [...] EDT Office Visit [facility] [address] [place] [address] Chele Lopez DPM [address] [address] documented as of this encounter Visit Diagnoses Not on filedocumented in this encounter Care Teams Steam Shovel Engineer Relationship Specialty Start Date End Date Portia Land MD [address] [place] [address] PCP - General Family Medicine 09/13/22 documented as of this encounter
--- OUTSIDE RECORDS SUMMARY | 2025-01-05 15:56 | XMS_ITS | Encounter Summary ---
Author Organization [facility] Address [address] [place] [address] Care Team Providers Care Basket Grader Name Role Phone Portia Land MD Primary Care Provider [phone] Encounter Details Date Type Department Care Team (Late st Contact Info) Description 09/21/2024 Abstract [facility] [address] [place] [id number] Bladimir Head DPM [facility]AC[facility] [address] [facility] [place] [address] Social History Tobacco Use Types [...] Office Visit [facility] [address] [place] [phone] Chele Lopez DPM [address] [facility] 5 [place] [address] documented as of this encounter Visit Diagnoses Not on filedocumented in this encounter Care Teams Basket Grader Relationship Specialty Start Date End Date Portia Land MD [address] [place] [address] PCP - General Family Medicine 09/13/22 documented as of this encounter
--- OUTSIDE RECORDS SUMMARY | 2025-01-05 15:56 | XMS_ITS | Encounter Summary ---
Author Organization [facility] Address [address] [place] [address] Care Team Providers Care Intern Product Marketing Manager Name Role Phone Portia Land MD Primary Care Provider [phone] Encounter Details Date Type Department Care Team (Late st Contact Info) Description 12/08/2024 Abstract [facility] [address] [facility] [address] [place] [address] Hieu Zhang MD 112 [facility] [address] [place] [address] Social History Tobacco Use Types Packs/Day Years [...] Office Visit [facility] [address] [place] [phone] Chele Lopez DPM [address]006 [facility] 5 [place] [address] documented as of this encounter Visit Diagnoses Not on filedocumented in this encounter Care Teams Intern Product Marketing Manager Relationship Specialty Start Date End Date Portia Land MD [address] [place] [address] PCP - General Family Medicine 09/13/22 documented as of this encounter
--- OUTSIDE RECORDS SUMMARY | 2025-01-05 15:56 | XMS_ITS | Encounter Summary ---
Author Organization [facility] Address [address] [place] [address] Care Team Providers Care Clinical Secretary Name Role Phone Portia Land MD Primary Care Provider [phone] Encounter Details Date Type Department Care Team (Late st Contact Info) Description 09/30/2024 Abstract [facility] [address] [place] [address] Chele Lopez DPM [address] [address] Social History Tobacco Use Types Packs/Day Years [...] EDT Office Visit [facility] [address] [place] [phone] Chele Lopez DPM [address] [address] documented as of this encounter Visit Diagnoses Not on filedocumented in this encounter Care Teams Clinical Secretary Relationship Specialty Start Date End Date Portia Land MD [address] [place] [address] PCP - General Family Medicine 09/13/22 documented as of this encounter
--- NOTE | 2025-01-05 16:23 | XR_ITS ---
[place] [id number] Patient Name: SEBASTIAN PIEDRA MRN: [id number] date: 1965 Sex: M Assigned Patient Location: [facility] Current Patient Location: [facility] Accession/Order Number: [id number] Exam Date: 01/05/2025 16:15 Report Date: 01/05/2025 20:29 At the request of: ELIZABETH MERIDA Procedure: XR abdomen 1V KUB INDICATION: Nausea with vomiting FINDINGS: Nonspecific nonobstructive bowel gas pattern. No definite free air. No radio opaque calcifications overlying the renal shadows or psoas muscles. Degenerative changes lumbar spine with levocurvature. XR/XR abdomen 1V IMPRESSION: Nonspecific bowel gas pattern. No definite radiopaque calculi identified. Impression dictated by: Sen Montanez M.D. 01/05/2025 8:29 PM Dictation Location: [place] [address] Electronically authenticated by: [id number] Y Date: 01/05/2025 20:29
== END 2025-01-05 15:35 | disposition home or self-care (01) ==
PROVIDERS: PCP Family Medicine; Visit Provider Family Medicine
DX: R11.2 Nausea with vomiting, unspecified (principal)
CPT/HCPCS: 74018

== ENCOUNTER 2025-03-11 09:55 | Outpatient (RCR) | payer MEDICARE, MEDICAID, SELFPAY ==
[2025-03-04] MEDS: FERRIC CARBOXYMALTOSE 750 MG in 0.9 % SODIUM CHLORIDE 250 ML 795 MG IV (11:39)
[2025-03-04 12:04] VITALS: BP 144/85; PULSE 71; TEMP 36.1; O2SAT 97
[2025-03-11 09:58] VITALS: BP 144/79; PULSE 67; TEMP 36.3; O2SAT 98
[2025-03-11] MEDS: FERRIC CARBOXYMALTOSE 750 MG in 0.9 % SODIUM CHLORIDE 250 ML 795 MG IV (10:08)
== END 2025-03-31 23:59 | disposition home or self-care (01) ==
LOC: INF 09:55
PROVIDERS: PCP Family Medicine; Visit Provider Internal Medicine
DX: N18.4 Chronic kidney disease, stage 4 (severe) (principal); D63.1 Anemia in chronic kidney disease
CPT/HCPCS: 96365; J1439